=== PATIENT | male | born 1960 | race Hispanic/Latino ===

== ENCOUNTER 2016-07-03 15:43 | Inpatient (IN) | payer BC ==
[2016-07-03 15:49] VITALS: BMI 37.9
[2016-07-03 16:48] LABS: ADD MANUAL DIFF? NO
[2016-07-03 16:53] LABS: BASO # 0.02 K/mm3 (0.0-2.0); BASO % 0.3 % (0.0-3.0); EOS # 0.3 (0.0-0.7); EOS % 3.4 % (1.5-5.0); GRAN # 5.91 (1.4-6.5); GRAN % 74.8 % (50.0-68.0); HEMATOCRIT 34.2 % (42.0-52.0); LYMPH # 1.2 (1.2-3.4); LYMPH % 15.5 % (22.0-35.0); MEAN CELL VOLUME 78.8 fL (80.0-105.0); MEAN CORPUSCULAR HEMOGLOBIN 25.3 pg (25.0-35.0); MEAN CORPUSCULAR HGB CONC 32.2 g/dl (31.0-37.0); MEAN PLATELET VOLUME 10.8 fl (7.0-11.0); MONO # 0.5 (0.1-0.6); PLATELET COUNT 380 10^3/uL (120.0-450.0); RED CELL DISTRIBUTION WIDTH 16.2 % (11.5-14.5); WHITE BLOOD COUNT 7.9 10^3/ul (4.5-11.0)
--- NOTE | 2016-07-03 16:59 | ED PDOC ---
Arrival/HPI - General Chief Complaint: Medical Clearance Time Seen by Provider: 07/03/16 15:55 Historian: Patient - History of Present Illness Narrative History of Present Illness (Text): 07/03/16 17:10 56yr old male presents today sent down from the wound center for admission for osteomyelitis of right foot. pt states he has had chronic worsening wound to right foot. pt states he is currently on augmentin at home. pt states he is going to have procedure on sunday. pt denies cp or sob. no fever/chills. no abdominal pain. no other complaints. Time/Duration: Other (chronic) Symptom Onset: Gradual Symptom Course: Worsening Quality: Aching Severity Level: 2 Past Medical History - Provider Review Nursing Documentation Reviewed: Yes - Travel History Have you recently traveled outside [place] w/in the past 3 mons?: No - Tetanus Immunization Tetanus Immunization: Unknown - Cardiac Hx Cardiac Disorders: Yes Hx Hypertension: Yes - Pulmonary Hx Respiratory Disorders: No - Neurological Hx Neurological Disorder: No - HEENT Hx HEENT Disorder: (WEARS RX GLASSES) - Renal Hx Renal Disorder: No - Endocrine/Metabolic Hx Endocrine Disorders: No - Hematological/Oncological Hx Blood Disorders: No Other/Comment: lymphedema to right leg - Integumentary Hx Dermatological Disorder: Yes (STASIS ULCER TO RIGHT BALL OF FOOT) - Musculoskeletal/Rheumatological Hx Musculoskeletal Disorders: No - Gastrointestinal Hx Gastrointestinal Disorders: No - Genitourinary/Gynecological Hx Genitourinary Disorders: No - Psychiatric Hx Psychophysiologic Disorder: Yes (ETOH) Hx Substance Use: No - Past Surgical History Past Surgical History: No Previous - Surgical History Hx Coronary Stent: Yes - Suicidal Assessment Feels Threatened In Home Enviroment: No Family/Social History - Physician Review Nursing Documentation Reviewed: Yes Family/Social History: Unknown Family HX Smoking Status: Former Smoker Hx Alcohol Use: No Hx Substance Use: No Hx Substance Use Treatment: No Allergies/Home Meds Allergies/Adverse Reactions: Allergies No Known Allergies Allergy (Verified 02/08/15 15:13) Home Medications: Home Meds Medication Instructions Recorded Confirmed Amoxicillin/Clavulanate [Augmentin 1 tab PO BID 07/03/16 07/03/16 875 MG-125 MG] Aspirin [Ecotrin] 81 mg PO DAILY 07/03/16 07/03/16 Carvedilol [Coreg] 6.25 mg PO BID 07/03/16 07/03/16 Furosemide [Lasix] 40 mg PO DAILY 07/03/16 07/03/16 Gabapentin [Neurontin] 300 mg PO TID 07/03/16 07/03/16 Potassium Chloride [Klor-Con] 20 meq PO BID 07/03/16 07/03/16 Prasugrel [Effient] 10 mg PO DAILY 07/03/16 07/03/16 Rosuvastatin Calcium 20 mg PO HS 07/03/16 07/03/16 Tramadol HCl [Ultram] 50 mg PO Q6H PRN 07/03/16 07/03/16 Valsartan [Diovan] 160 mg PO DAILY 07/03/16 07/03/16 metOLazone [Zaroxolyn] 5 mg PO DAILY 07/03/16 07/03/16 oxyCODONE/Acetaminophen [Percocet 1 tab PO DAILY 07/03/16 07/03/16 5/325 mg Tab] Review of Systems - Review of Systems Constitutional: absent: Fatigue, Fevers Respiratory: absent: SOB Cardiovascular: absent: Syncope Gastrointestinal: absent: Abdominal Pain, Nausea, Vomiting Musculoskeletal: Arthralgias Skin: Skin Lesions, Cellulitis Neurological: absent: Headache Psychiatric: absent: Anxiety Physical Exam Vital Signs Reviewed: Yes Vital Signs Temp Pulse Resp BP Pulse Ox 07/03/16 15:49 98.9 F 79 16 125/76 98 Temperature: Afebrile Blood Pressure: Normal Pulse: Regular Respiratory Rate: Normal Appearance: Positive for: Well-Appearing, Non-Toxic, Comfortable Pain Distress: None Mental Status: Positive for: Alert and Oriented X 3 - Systems Exam Head: Present: Atraumatic Mouth: Present: Moist Mucous Membranes Neck: Present: Normal Range of Motion Respiratory/Chest: Present: Clear to Auscultation Cardiovascular: Present: Regular Rate and Rhythm Lower Extremity: Present: Tenderness (right foot; there is a large ulceration along the plantar aspect of the foot; slight bleeding noted; + erythema along foot into ankle. + edema to foot/ankle and calf. ), Swelling, Erythema, Neurovascularly Intact, Capillary Refill < 2 s. No: Deformity Neurological: Present: GCS=15, Speech Normal Skin: Present: Warm Psychiatric: Present: Alert, Oriented x 3 Medical Decision Making ED Course and Treatment: 07/03/16 17:14 56yr old male presents for admission for osteomyelitis to right foot. cbc: wnl cmp bun; 25 cr;1.2 type/screen blood cultures pending pt ptt ekg; normal sinus rhythm at 69 bpm normal axis normal intervals no ST elevation ancef started IV pt with MRI shows osteomyelitis of foot; pt with rx from dr. jha for admit to dr. crawford with ID consult dr. SAMUELS, start ancef 1g IV q8 case discussed with dr. crawford; accepts admission. impression; osteomyelitis, foot admit to med/surg - Lab Interpretations Lab Results: 07/03/16 16:28 07/03/16 16:28 Lab Results 07/03/16 16:28: WBC 7.9, RBC 4.34, Hgb 11.0 L, Hct 34.2 L, MCV 78.8 L, MCH 25.3 , MCHC 32.2, RDW 16.2 H, Plt Count 380, MPV 10.8, Gran % 74.8 H, Lymph % (Auto) 15.5 L, [place] % (Auto) 6.0, Eos % (Auto) 3.4, Baso % (Auto) 0.3, Gran # 5.91, Lymph # 1.2, [place] # 0.5, Eos # 0.3, Baso # 0.02, PT 12.1 H, INR 1.12 H, APTT 28.5, Sodium 138, Potassium 4.1, Chloride 100, Carbon Dioxide 26, Anion Gap 16, BUN 25 H, Creatinine 1.2, Est GFR ( Amer) > 60, Est GFR (Non-Af Amer) > 60, Random Glucose 77, Calcium 9.7, Total Bilirubin 0.7, AST 47, ALT 35, Alkaline Phosphatase 79, Total Protein 8.1, Albumin 3.9, Globulin 4.2, Albumin/ Globulin Ratio 0.9 L - RAD Interpretation Radiology Orders: 07/03/16 16:04 CHEST PORTABLE [RAD] Stat - Medication Orders Current Medication Orders: Cefazolin Sodium (Ancef 1gm In Ns) 100 mls @ 100 mls/hr IVPB STAT STA PRN Reason: Protocol Stop: 07/03/16 18:06 Last Admin: 07/03/16 17:28 Dose: 100 MLS/HR eMAR Start Stop Document 07/03/16 17:28 SS (Rec: 07/03/16 17:29 [facility]-[id number]) Intravenous Solution Start Date 07/03/16 Start Time 17:28 End Date 07/03/16 End time 18:28 Total Infusion Time 60 Disposition/Present on Arrival - Present on Arrival Any Indicators Present on Arrival: No History of DVT/PE: No History of Uncontrolled Diabetes: No Urinary Catheter: No History of Decub. Ulcer: No History Surgical Site Infection Following: None - Disposition Have Diagnosis and Disposition been Completed?: Yes Diagnosis: Osteomyelitis Disposition: HOSPITALIZED Disposition Time: 16:59 Patient Plan: Admission Patient Problems: Current Active Problems Problem Status Diagnosed Osteomyelitis Acute Condition: FAIR Referrals: Tesfaye Salazar MD [Primary Care Provider] - Follow up with primary
[2016-07-03 17:05] LABS: INR 1.12 (0.93-1.08); PARTIAL THROMBOPLASTIN TIME 28.5 Seconds (23.7-30.8)
[2016-07-03 17:06] LABS: ALB/GLOB RATIO 0.9 (1.1-1.8); ALKALINE PHOSPHATASE 79 U/L (38-133); ALT/SGPT 35 U/L (7-56); AST/SGOT 47 U/L (15-59); BILIRUBIN,TOTAL 0.7 mg/dL (0.2-1.3); BLOOD UREA NITROGEN 25 mg/dL (7-21); CALCIUM 9.7 mg/dL (8.4-10.5); CARBON DIOXIDE 26 mmol/L (21-33); CHLORIDE 100 mmol/L (98-107); GFR AFRICAN-AMERICAN > 60; GLUCOSE,RANDOM 77 mg/dL (70-110); POTASSIUM 4.1 mmol/L (3.6-5.0); SODIUM 138 mmol/L (132-148); TOTAL PROTEIN 8.1 g/dL (5.8-8.3)
[2016-07-03 22:09] VITALS: RESP 20
--- NOTE | 2016-07-04 08:09 | RAD ---
HISTORY: foot infection COMPARISON: 02/08/2015 FINDINGS: LUNGS: No active pulmonary disease. PLEURA: No significant pleural effusion identified, no pneumothorax apparent. CARDIOVASCULAR: Normal. OSSEOUS STRUCTURES: No significant abnormalities. VISUALIZED UPPER ABDOMEN: Normal. OTHER FINDINGS: None. IMPRESSION: No active disease.
--- NOTE | 2016-07-04 11:22 | CARD ---
APPROVED REPORT EKG Measurement Heart [id number] AR [id number] [id number]-2 [id number] <Conclusion> Normal sinus rhythm Low voltage QRS Inferior infarct, age undetermined Abnormal ECG
--- NOTE | 2016-07-04 12:41 | CP.PCM.PN ---
<Emma Montano - Last Filed: 07/04/16 12:37> Subjective - Date & Time of Evaluation Date of Evaluation: 07/04/16 Time of Evaluation: 12:37 - Subjective Subjective: 56 y/o male with pmhx of coronary disease, SD,dyslipidemia seen at bedside with attending Dr. Barton for right foot infection. Patient was sent from the wound care center by Dr. Morrell for right foot plantar ulceration that is infected with osteomyelitis of the 3rd ray. Patient denies any acute events overnight. His dressing remains c./d/i. Patient denies n/f/v/d/c/sob. Objective - Vital Signs/Intake and Output Vital Signs (last 24 hours): Temp Pulse Resp BP Pulse Ox 98.2 F 70 20 133/78 96 07/04/16 08:00 07/04/16 08:00 07/04/16 08:00 07/03/16 22:49 07/04/16 08:00 Intake and Output: 07/04/16 07/04/16 06:59 18:59 Intake Total 420 Balance 420 - Medications Medications: Current Medications Aspirin (Ecotrin) 81 mg PO DAILY [facility] Last Admin: 07/04/16 09:49 Dose: 81 mg Atorvastatin Calcium (Lipitor) 80 mg PO HS [facility] Last Admin: 07/03/16 22:48 Dose: 80 mg Carvedilol (Coreg) 6.25 mg PO BID [facility] Last Admin: 07/04/16 09:49 Dose: 6.25 mg Gabapentin (Neurontin) 300 mg PO TID [facility] PRN Reason: Protocol Last Admin: 07/04/16 09:49 Dose: 300 mg Cefazolin Sodium (Ancef 1gm In Ns) 1 gm in 100 mls @ 100 mls/hr IVPB Q8 [facility] PRN Reason: Protocol Losartan Potassium (Cozaar) 100 mg PO DAILY [facility] Last Admin: 07/04/16 11:16 Dose: 100 mg Prasugrel (Effient) 10 mg PO DAILY [facility] Last Admin: 07/04/16 10:04 Dose: Not Given Tramadol HCl (Ultram) 50 mg PO Q6H PRN PRN Reason: Pain, moderate (4-7) - Labs Labs: PT 12.1 Seconds (9.9-11.8) H 07/03/16 16:28 INR 1.12 (0.93-1.08) H 07/03/16 16:28 APTT 28.5 Seconds (23.7-30.8) 07/03/16 16:28 - Constitutional Appears: Well, Non-toxic, No Acute Distress - Extremities Exam Additional comments: Vasc: nonpalpable DP/PT pulses, tg wnl, CFT < 3 sec to all digits neuro: grossly diminished derm: open ulceration of the right plantar midfoot sub met 3 measuring 3cm x 2cm x 0.5cm with mixed fibrogranular base, mild serous drainage, no purulence, no ascending cellulitis, probe to bone +, no undermining ortho:no pain to palpation of plantar midfoot - Neurological Exam Neurological Exam: Alert, Awake, Oriented x3 - Psychiatric Exam Psychiatric exam: Normal Affect, Normal Mood Assessment and Plan - Assessment and Plan (Free Text) Assessment: 56 y/o male seen at bedside for right foot ulceration and osteomyelitis Plan: patient evaluated and chart reviewed seen at bedside with attending Dr. Barton labs and vitals reviewed; afebrile, WBC 7.9 continue IV abx as per ID applied DSD to right foot effient held for pre-op surgery patient scheduled for surgery for right foot partial 3rd ray resection once optimized podiatry will continue to follow while patient remains in house <Jamie Barton - Last Filed: 07/04/16 15:15> Objective - Vital Signs/Intake and Output Vital Signs (last 24 hours): Temp Pulse Resp BP Pulse Ox 98.2 F 70 20 133/78 96 07/04/16 08:00 07/04/16 08:00 07/04/16 08:00 07/03/16 22:49 07/04/16 08:00 Intake and Output: 07/04/16 07/04/16 06:59 18:59 Intake Total 420 360 Balance 420 360 - Medications Medications: Current Medications Aspirin (Ecotrin) 81 mg PO DAILY [facility] Last Admin: 07/04/16 09:49 Dose: 81 mg Atorvastatin Calcium (Lipitor) 80 mg PO HS [facility] Last Admin: 07/03/16 22:48 Dose: 80 mg Carvedilol (Coreg) 6.25 mg PO BID [facility] Last Admin: 07/04/16 09:49 Dose: 6.25 mg Gabapentin (Neurontin) 300 mg PO TID [facility] PRN Reason: Protocol Last Admin: 07/04/16 13:39 Dose: 300 mg Cefazolin Sodium (Ancef 1gm In Ns) 1 gm in 100 mls @ 100 mls/hr IVPB Q8 [facility] PRN Reason: Protocol Last Admin: 07/04/16 13:39 Dose: 100 mls/hr Losartan Potassium (Cozaar) 100 mg PO DAILY [facility] Last Admin: 07/04/16 11:16 Dose: 100 mg Prasugrel (Effient) 10 mg PO DAILY [facility] Last Admin: 07/04/16 10:04 Dose: Not Given Tramadol HCl (Ultram) 50 mg PO Q6H PRN PRN Reason: Pain, moderate (4-7) - Labs Labs: PT 12.1 Seconds (9.9-11.8) H 07/03/16 16:28 INR 1.12 (0.93-1.08) H 07/03/16 16:28 APTT 28.5 Seconds (23.7-30.8) 07/03/16 16:28 Attending/Attestation - Attestation I have personally seen and examined this patient.: Yes I have fully participated in the care of the patient.: Yes I have reviewed all pertinent clinical information, including history, physical exam and plan: Yes
[2016-07-04] MEDS: ceFAZolin 1 gm in NS 1 GM/100 ML BAG IVPB SCH ×2 (13:39→22:56)
--- NOTE | 2016-07-04 19:23 | CP.PCM.CON ---
History of Present Illness - History of Present Illness History of Present Illness: Infectious Disease Consultation: July 04, 2016 56 yo male with multiple hospitalizations at numerous facilities for his lower extremities. Patient with swelling and drainage from ulceration at the base of the third toe on the right foot. The patient denies fevers or chills. MRI was done recently showing possible abscess formation at the base of the third toe in the right foot and strong suspicion for osteomyelitis. The patient has severe swelling of the right foot. The patient was to go for PICC line placement and start on 6 week course of Ancef IV q8hrs for osteomyelitis and the possible abscess formation. PMHx: Hypertension, Coronary Artery disease, Peripheral Vascular Disease, Obesity, [place] history, Bilateral lower extremity neuropathy, history of osteomyelitis. PSHx: Bone biopsy Allergies: NKDA Social Hx: Ex-smoker, Ex-EtOH user. On disability now. Medications: Active Medications Aspirin (Ecotrin) 81 mg PO DAILY [facility] Last Admin: 07/04/16 09:49 Dose: 81 mg Atorvastatin Calcium (Lipitor) 80 mg PO HS [facility] Last Admin: 07/03/16 22:48 Dose: 80 mg Carvedilol (Coreg) 6.25 mg PO BID [facility] Last Admin: 07/04/16 17:50 Dose: Not Given Gabapentin (Neurontin) 300 mg PO TID [facility] PRN Reason: Protocol Last Admin: 07/04/16 17:50 Dose: 300 mg Cefazolin Sodium (Ancef 1gm In Ns) 1 gm in 100 mls @ 100 mls/hr IVPB Q8 [facility] PRN Reason: Protocol Last Admin: 07/04/16 13:39 Dose: 100 mls/hr Losartan Potassium (Cozaar) 100 mg PO DAILY [facility] Last Admin: 07/04/16 11:16 Dose: 100 mg Prasugrel (Effient) 10 mg PO DAILY [facility] Last Admin: 07/04/16 10:04 Dose: Not Given Tramadol HCl (Ultram) 50 mg PO Q6H PRN PRN Reason: Pain, moderate (4-7) Family Hx: None ROS: No fevers, chills, nausea, vomiting, diarrhea, headaches, dizziness, chest pain , abdominal pain, melena, hematuria, hematemesis, hematochezia, depression, anxiety Past Patient History - Tetanus Immunizations Tetanus Immunization: Unknown - Past Social History Smoking Status: Former Smoker - CARDIAC Hx Cardiac Disorders: Yes Hx Hypertension: Yes Hx Peripheral Vascular Disease: Yes Other/Comment: [place] - DEC 2013 - PULMONARY Hx Respiratory Disorders: No - NEUROLOGICAL Hx Neurological Disorder: Yes (Neuropathy both lower legs) - HEENT Hx HEENT Problems: (WEARS RX GLASSES) - RENAL Hx Chronic Kidney Disease: No - ENDOCRINE/METABOLIC Hx Endocrine Disorders: No - HEMATOLOGICAL/ONCOLOGICAL Hx Blood Disorders: No Other/Comment: lymphedema to right leg - INTEGUMENTARY Hx Dermatological Problems: Yes (STASIS ULCER TO RIGHT BALL OF FOOT) - MUSCULOSKELETAL/RHEUMATOLOGICAL Hx Musculoskeletal Disorders: No Hx Falls: No - GASTROINTESTINAL Hx Gastrointestinal Disorders: No - GENITOURINARY/GYNECOLOGICAL Hx Genitourinary Disorders: No - PSYCHIATRIC Hx Psychophysiologic Disorder: Yes (ETOH occ. - no alcohol since 2016) Hx Substance Use: No - SURGICAL HISTORY Hx Surgeries: Yes (Right ft osteomyelitis) Hx Cardiac Catheterization: Yes Hx Coronary Stent: Yes (stents x3 10'14) Meds Allergies/Adverse Reactions: Allergies Allergy/AdvReac Type Severity Reaction Status Date / Time No Known Allergies Allergy Verified 02/08/15 15:13 - Medications Medications: Current Medications Aspirin (Ecotrin) 81 mg PO DAILY [facility] Last Admin: 07/04/16 09:49 Dose: 81 mg Atorvastatin Calcium (Lipitor) 80 mg PO HS [facility] Last Admin: 07/03/16 22:48 Dose: 80 mg Carvedilol (Coreg) 6.25 mg PO BID [facility] Last Admin: 07/04/16 17:50 Dose: Not Given Gabapentin (Neurontin) 300 mg PO TID [facility] PRN Reason: Protocol Last Admin: 07/04/16 17:50 Dose: 300 mg Cefazolin Sodium (Ancef 1gm In Ns) 1 gm in 100 mls @ 100 mls/hr IVPB Q8 [facility] PRN Reason: Protocol Last Admin: 07/04/16 13:39 Dose: 100 mls/hr Losartan Potassium (Cozaar) 100 mg PO DAILY [facility] Last Admin: 07/04/16 11:16 Dose: 100 mg Prasugrel (Effient) 10 mg PO DAILY [facility] Last Admin: 07/04/16 10:04 Dose: Not Given Tramadol HCl (Ultram) 50 mg PO Q6H PRN PRN Reason: Pain, moderate (4-7) Physical Exam - Constitutional Appears: Non-toxic, No Acute Distress, Chronically Ill - Head Exam Head Exam: ATRAUMATIC, NORMOCEPHALIC - Eye Exam Eye Exam: EOMI, PERRL Pupil Exam: NORMAL ACCOMODATION, PERRL - ENT Exam ENT Exam: Mucous Membranes Moist, Normal External Ear Exam, TM's Normal Bilaterally - Neck Exam Neck exam: Positive for: Full Rom, Normal Inspection - Cardiovascular Exam Cardiovascular Exam: REGULAR RHYTHM, RRR, +S1, +S2 - GI/Abdominal Exam GI & Abdominal Exam: Normal Bowel Sounds, Soft. absent: Distended, Tenderness - Extremities Exam Additional comments: Right leg with +2-3 edema of the entire right leg. 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 No odor. Probes to bone. Sloughing of the skin on both legs. - Neurological Exam Neurological exam: Alert, CN II-XII Intact, Oriented x3 Additional comments: decreased sensation of both lower extremities. Weak distal pulses. chronic venous stasis changes to both legs with right much worse than left. - Psychiatric Exam Psychiatric exam: Normal Affect, Normal Mood - Skin Skin Exam: Intact, Normal Color Results - Vital Signs Recent Vital Signs: Last Vital Signs Temp 98.3 F 07/04/16 16:00 Pulse 57 L 07/04/16 16:00 Resp 20 07/04/16 16:00 BP 114/82 07/04/16 16:00 Pulse Ox 97 07/04/16 16:00 - Labs Result Diagrams: 07/03/16 16:28 07/03/16 16:28 Labs: Laboratory Results - last 24 hr 07/04/16 07:10 Blood Type Confirm B NEGATIVE Assessment & Plan - Assessment and Plan (Free Text) Assessment: 56 yo male with extensive past medical history as listed above with signs of abscess formation and osteomyelitis on MRI taken at [facility] a few days ago. The patient with HTN, CAD, and PVD. He was on Amoxicillin for therapy. At this point in time, the patient requires PICC line placement and IV antibiotic infusion. Wound cultures grew a sensitive E. coli. However, the patient has borderline renal function. As this point in time, would start Ancef 1gm q8hrs for a minimum of 6 weeks of therapy. Monitor weekly ESR and CRP. Dr. Morrell may also consider whether hyperbarics may provide any benefit. Since the time I saw the patient in the wound care center, the patient required admission for increasing pain of the right foot. He is scheduled for the OR on Sunday due to his anticoagulation medications and time required to clear them from his body. Repeat cultures taken. Remains on Ancef IV for antibiotic treatment. Thank you for allowing me to participate in the care of the patient, we will follow with you.
[2016-07-05] MEDS: ceFAZolin 1 gm in NS 1 GM/100 ML BAG IVPB SCH ×3 (06:07→21:46)
--- NOTE | 2016-07-05 08:56 | HP ---
CHIEF COMPLAINT AND HISTORY OF PRESENT ILLNESS: This is a 56-year-old male who is coming in to the [facility] presenting from the wound care center for osteomyelitis of the right foot. The patient was s een by Dr. Morrell, and she had probed his foot and had gone to the bone, so the patient was sent in to the Emergency Room for further management. The patient has swelling and drainage of the ulceration at the base of the third toe of the right pascual t. He denied any fevers or chills. The patient had an MRI that was done that showed possible absces s formation, a bone infarct that is possibly seen. He was admitted for further evaluation. The mariano ent was to get IV PICC line placed and start a course of IV Ancef for the osteomyelitis. REVIEW OF SYSTEMS: All other review of symptoms are within normal limits except as mentioned. ALLERGIES: No known drug allergies. HOME MEDICATIONS: Aspirin, Coreg, Lasix, Neurontin, Effient, Ultram, Diovan, Zaroxolyn, oxycodone. PAST MEDICAL HISTORY: 1. Sinus tract of the left aspect of the first metatarsal. 2. Ulceration of the plantar aspect of the first metatarsal of the right foot. 3. Right foot osteomyelitis. 4. Coronary artery disease. 5. Hypertension. 6. Peripheral arterial disease. 7. Dyslipidemia. 8. Neuropathy. SOCIAL HISTORY: He does not smoke. He is not . He has no children. He works at a warehouse . He does drink, but he says he stopped drinking in 03/2016. He was vague on how much he was drinkin g. FAMILY HISTORY: Noncontributory. PHYSICAL EXAMINATION: VITAL SIGNS: Temperature is 98.3, pulse of ____. Blood pressure is 114/____, respirations 20, O2 sa turation 97%. GENERAL: The patient is lying in bed, flat, and in no apparent distress. HEAD AND NECK EXAM: Atraumatic, normocephalic. Conjunctivae are pink. Throat clear and mouth with moist mucosa. Oropharynx benign. EYES: Extraocular movements are intact. PERRLA. NECK: Supple. No JVD, thyromegaly, or adenopathy. No bruits. HEART: S1 and S2 regular rate and rhythm. No murmurs, rubs, or gallops. LUNGS: Clear to auscultation bilaterally. No wheezing rales or rhonchi appreciated. No retraction s on exam. ABDOMEN: Soft, nontender, nondistended. Bowel sounds are positive in all quadrants. No rebound. No hepatosplenomegaly. EXTREMITIES: No cyanosis, clubbing, or edema. The right foot is covered with a dressing. It is r eported the patient has a stage IV ulceration of the right toe. NEURO: No facial asymmetry, tongue is midline, no uvula deviation. Power is 5/5 in upper extremity and 5/5 in lower extremity. Sensation is normal in upper extremity and lower extremity. PSYCH: Awake, alert, oriented x3. No anxiety or depression symptoms. Good insight. Normal affec t. : No CVA tenderness VASCULAR: 2+ pulses in carotid and pedal pulses. SKIN: No erythema or abnormal nodules noted. SPINE: Normal curvature. LYMPHADENOPATHY: No anterior cervical or posterior cervical adenopathy. No inguinal adenopathy. ASSESSMENT: 1. Right foot ulcer with abscess. 2. Dyslipidemia. 3. Coronary artery disease with stenting. 4. Peripheral arterial disease. 5. Hypertension. 6. Obesity with a body mass index of 38. PLAN: The patient is lying comfortable. He is going to be followed by Dr. Morrell and Mick, as we ll as DrAman ____. He had a chest x-ray done that showed no active disease. He had an EKG that showed low voltage QRS and normal sinus rhythm at 69. He is going to be admitted to the hospital. He is going to be scheduled for the OR most likely accor ding to the notes I reviewed of Dr. Barton. He is on losartan for his hypertension. His aspirin has been placed on hold. He is on Neurontin for his neuropathy. The patient is on tramadol for pain. He is on a heart-healthy diet. I reviewed his labs. His hemoglobin is 11. His white count is 7.9. Hank Barroso MD cc: [id number] TT: 07/05/2016 08:56:09 lucia
--- NOTE | 2016-07-05 09:52 | PN ---
DATE: 07/05/2016 SUBJECTIVE: The patient has no complaints of any chest pain, no shortness of breath, no headaches. PHYSICAL EXAMINATION: VITAL SIGNS: Temperature is 98.3, pulse of 57, blood pressure is 114/82, respirations 20. GENERAL: The patient comfortable, in no acute distress. HEENT: Anicteric sclerae. Moist mucosa. NECK: No JVD or adenopathy. CARDIAC: S1/S2. No murmurs. No rubs. Regular. RESPIRATORY: Clear to auscultation bilaterally. No wheezes, rales, or rhonchi. Good air entry. ABDOMEN: Bowel sounds are positive, soft, nontender, and nondistended. EXTREMITIES: No edema. Has 1+ pulses. Right foot has dressing on. LABS: White count is 7.9, hemoglobin 11.0. Creatinine is 1.2. ASSESSMENT: 1. Right foot ulcer. 2. Coronary artery disease. 3. Hypertension. 4. Peripheral arterial disease. 5. Obesity with a body mass index of 38. PLAN: The patient is currently comfortable. He is on carvedilol for his coronary artery disease. H e is going to continue with aspirin. His Effient is on hold. He is going to be going to the OR with podiatry. He is on Neurontin for his neuropathy. The patient is on a heart healthy diet. Hank Barroso MD cc: [id number] TT: 07/05/2016 09:51:19 Confirmation # [id number] Dictation # [id number]
--- NOTE | 2016-07-05 10:29 | CP.PCM.PN ---
<Emma Montano - Last Filed: 07/05/16 10:26> Subjective - Date & Time of Evaluation Date of Evaluation: 07/05/16 Time of Evaluation: 10:26 - Subjective Subjective: 56 y/o male with pmhx of coronary disease, [place],dyslipidemia seen at bedside with attending Dr. Morrell for right foot ulceration. Patient denies any acute events overnight. His dressing remains c./d/i. Patient denies n/f/v/d/c/sob. Objective - Vital Signs/Intake and Output Vital Signs (last 24 hours): Temp Pulse Resp BP Pulse Ox 98.3 F 64 20 155/92 H 98 07/05/16 08:52 07/05/16 08:52 07/05/16 08:52 07/05/16 08:52 07/05/16 08:52 Intake and Output: 07/05/16 07/05/16 06:59 18:59 Intake Total 800 Balance 800 - Medications Medications: Current Medications Aspirin (Ecotrin) 81 mg PO DAILY [facility] Last Admin: 07/04/16 09:49 Dose: 81 mg Atorvastatin Calcium (Lipitor) 80 mg PO HS [facility] Last Admin: 07/04/16 22:56 Dose: 80 mg Carvedilol (Coreg) 6.25 mg PO BID [facility] Last Admin: 07/04/16 17:50 Dose: Not Given Gabapentin (Neurontin) 300 mg PO TID [facility] PRN Reason: Protocol Last Admin: 07/04/16 17:50 Dose: 300 mg Cefazolin Sodium (Ancef 1gm In Ns) 1 gm in 100 mls @ 100 mls/hr IVPB Q8 [facility] PRN Reason: Protocol Last Admin: 07/05/16 06:07 Dose: 100 mls/hr Losartan Potassium (Cozaar) 100 mg PO DAILY [facility] Last Admin: 07/04/16 11:16 Dose: 100 mg Prasugrel (Effient) 10 mg PO DAILY [facility] Last Admin: 07/04/16 10:04 Dose: Not Given Tramadol HCl (Ultram) 50 mg PO Q6H PRN PRN Reason: Pain, moderate (4-7) - Labs Labs: PT 12.1 Seconds (9.9-11.8) H 07/03/16 16:28 INR 1.12 (0.93-1.08) H 07/03/16 16:28 APTT 28.5 Seconds (23.7-30.8) 07/03/16 16:28 - Constitutional Appears: Well, Non-toxic, No Acute Distress - Extremities Exam Additional comments: Vasc: nonpalpable DP/PT pulses, tg wnl, CFT < 3 sec to all digits neuro: grossly diminished derm: open ulceration of the right plantar midfoot sub met 3 measuring 3cm x 2cm x 0.5cm with mixed fibrogranular base, macerated border, mild serous drainage, no purulence, no ascending cellulitis,no probe to bone, no undermining ortho:no pain to palpation of plantar midfoot - Neurological Exam Neurological Exam: Alert, Awake, Oriented x3 - Psychiatric Exam Psychiatric exam: Normal Affect, Normal Mood Assessment and Plan - Assessment and Plan (Free Text) Assessment: 56 yo male seen at bedside for right foot dominguez grade 2 ulceration Plan: patient evaluated and chart reviewed seen at bedside with attending Dr. Morrell labs and vitals reviewed; afebrile continue IV abx applied hydrogel, DSD, JERED to right foot Rx right foot x rays podiatry will continue to monitor while patient remains in house <Shameka Morrell - Last Filed: 07/16/16 14:11> Objective - Vital Signs/Intake and Output Vital Signs (last 24 hours): Temp Pulse Resp BP Pulse Ox 99 F 72 20 113/67 97 07/06/16 16:00 07/06/16 18:26 07/06/16 16:00 07/06/16 18:26 07/06/16 16:00 - Labs Labs: PT 12.1 Seconds (9.9-11.8) H 07/03/16 16:28 INR 1.12 (0.93-1.08) H 07/03/16 16:28 APTT 28.5 Seconds (23.7-30.8) 07/03/16 16:28 Attending/Attestation - Attestation I have personally seen and examined this patient.: Yes I have fully participated in the care of the patient.: Yes I have reviewed all pertinent clinical information, including history, physical exam and plan: Yes
--- NOTE | 2016-07-05 12:07 | RAD ---
PROCEDURE: Right Foot Radiographs. HISTORY: osteomyelitis COMPARISON: None. FINDINGS: BONES: There is bony destruction of the head of the 3rd metatarsal as well as a fracture of the neck JOINTS: Degenerative changes are seen in the 1st PIP and MTP joints SOFT TISSUES: Normal. OTHER FINDINGS: None. IMPRESSION: There is bony destruction of the head of the 3rd metatarsal as well as a fracture of the neck
[2016-07-05] MEDS ORDERED: Lidocaine 2% Inj (20ml) ONE (12:53)
--- NOTE | 2016-07-05 15:57 | VASCULAR ---
PROCEDURE: Ultrasound and fluoroscopically placed left upper extremity PICC line. HISTORY: Right foot osteomyelitis. Long-term IV antibiotics. Needs PICC line. PHYSICIAN(S): J Luis Salazar MD. TECHNIQUE: The relative risks and indications of the procedure were explained to the patient and consent obtained. The patient was placed supine on the arteriogram table and the left arm prepped and draped in the usual sterile fashion. A tourniquet was applied to the left axilla. 1% Xylocaine was used to anesthetize the skin and soft tissues at the puncture site above the elbow. The left basilic vein was punctured under direct ultrasound guidance with a micropuncture set. A 0.018 guidewire was advanced centrally and used to measure the length to the SVC/RA junction. A 5 Vincentian single-lumen PICC line 55 cm long was advanced to the SVC/RA junction. The catheter was flushed and secured. The patient tolerated the procedure well. IMPRESSION: 1. Ultrasound and fluoroscopically placed left upper extremity PICC line. A 5 Vincentian single-lumen PICC line 55 cm long was advanced to the SVC/RA junction.
--- NOTE | 2016-07-05 18:01 | CP.PCM.PN ---
Subjective - Date & Time of Evaluation Date of Evaluation: 07/05/16 Time of Evaluation: 17:00 - Subjective Subjective: Infectious Disease Follow Up: July 05, 2016 56 yo male with multiple hospitalizations at numerous facilities for his lower extremities. Patient with swelling and drainage from ulceration at the base of the third toe on the right foot. The patient denies fevers or chills. MRI was done recently showing possible abscess formation at the base of the third toe in the right foot and strong suspicion for osteomyelitis. The patient has severe swelling of the right foot. The patient was to go for PICC line placement and start on 6 week course of Ancef IV q8hrs for osteomyelitis and the possible abscess formation. PICC line placed by Dr. Salazar. Off anticoagulation for potential surgery on Sunday. Objective - Vital Signs/Intake and Output Vital Signs (last 24 hours): Temp Pulse Resp BP Pulse Ox 98.3 F 64 20 147/84 97 07/05/16 16:00 07/05/16 16:00 07/05/16 16:00 07/05/16 16:00 07/05/16 16:00 Intake and Output: 07/05/16 07/05/16 06:59 18:59 Intake Total 800 600 Balance 800 600 - Medications Medications: Current Medications Aspirin (Ecotrin) 81 mg PO DAILY [facility] Last Admin: 07/05/16 10:54 Dose: 81 mg Atorvastatin Calcium (Lipitor) 80 mg PO HS [facility] Last Admin: 07/04/16 22:56 Dose: 80 mg Carvedilol (Coreg) 6.25 mg PO BID [facility] Last Admin: 07/05/16 10:54 Dose: 6.25 mg Gabapentin (Neurontin) 300 mg PO TID [facility] PRN Reason: Protocol Last Admin: 07/05/16 14:33 Dose: 300 mg Cefazolin Sodium (Ancef 1gm In Ns) 1 gm in 100 mls @ 100 mls/hr IVPB Q8 [facility] PRN Reason: Protocol Last Admin: 07/05/16 14:29 Dose: 100 mls/hr Losartan Potassium (Cozaar) 100 mg PO DAILY [facility] Last Admin: 07/05/16 10:54 Dose: 100 mg Prasugrel (Effient) 10 mg PO DAILY [facility] Last Admin: 07/04/16 10:04 Dose: Not Given Tramadol HCl (Ultram) 50 mg PO Q6H PRN PRN Reason: Pain, moderate (4-7) - Labs Labs: PT 12.1 Seconds (9.9-11.8) H 07/03/16 16:28 INR 1.12 (0.93-1.08) H 07/03/16 16:28 APTT 28.5 Seconds (23.7-30.8) 07/03/16 16:28 - Constitutional Appears: Non-toxic, No Acute Distress, Chronically Ill - Head Exam Head Exam: ATRAUMATIC, NORMOCEPHALIC - Eye Exam Eye Exam: EOMI, PERRL Pupil Exam: NORMAL ACCOMODATION, PERRL - ENT Exam ENT Exam: Mucous Membranes Moist, Normal External Ear Exam, TM's Normal Bilaterally - Neck Exam Neck Exam: Full ROM, Normal Inspection - Respiratory Exam Respiratory Exam: Clear to Ausculation Bilateral, NORMAL BREATHING PATTERN. absent: Rales, Rhonchi, Wheezes - Cardiovascular Exam Cardiovascular Exam: REGULAR RHYTHM, RRR, +S1, +S2 - GI/Abdominal Exam GI & Abdominal Exam: Soft, Normal Bowel Sounds. absent: Distended, Tenderness - Extremities Exam Additional comments: Right leg with +2-3 edema of the entire right leg. 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 No odor. Probes to bone. Sloughing of the skin on both legs. - Neurological Exam Neurological Exam: Alert, CN II-XII Intact, Oriented x3 Additional comments: decreased sensation of both lower extremities. Weak distal pulses. chronic venous stasis changes to both legs with right much worse than left. - Psychiatric Exam Psychiatric exam: Normal Affect, Normal Mood - Skin Skin Exam: Intact, Normal Color Assessment and Plan - Assessment and Plan (Free Text) Assessment: 56 yo male with extensive past medical history as listed above with signs of abscess formation and osteomyelitis [place] [facility] [place] The patient with HTN, CAD, and PVD. He was on Amoxicillin for therapy. At this point in time, the patient requires PICC line placement and IV antibiotic infusion. Wound cultures grew a sensitive E. coli. However, the patient has borderline renal function. As this point in time, would start Ancef 1gm q8hrs for a minimum of 6 weeks of therapy. Monitor weekly ESR and CRP. Dr. Morrell may also consider whether hyperbarics may provide any benefit. Since the time I saw the patient in the wound care center, the patient required admission for increasing pain of the right foot. He is scheduled for the OR on Sunday due to his anticoagulation medications and time required to clear them from his body. Repeat cultures taken. Remains on Ancef IV for antibiotic treatment. PICC line placed. On Ancef based on recent wound cultures done in wound care center showing E. coli growth. Thank you for allowing me to participate in the care of the patient, we will follow with you.
[2016-07-06] MEDS: ceFAZolin 1 gm in NS 1 GM/100 ML BAG IVPB SCH ×2 (06:04→14:09)
--- NOTE | 2016-07-06 06:31 | PN ---
DATE: 07/06/2016 SUBJECTIVE: The patient has no complaints of chest pain or shortness of breath. No headaches or diz ziness. PHYSICAL EXAMINATION: VITAL SIGNS: Temperature is 98.3, pulse 64, blood pressure 147/84, respirations 20. GENERAL: The patient comfortable, in no acute distress. HEENT: Anicteric sclerae. Moist mucosa. NECK: No JVD or adenopathy. CARDIAC: S1/S2. No murmurs. No rubs. Regular. RESPIRATORY: Clear to auscultation bilaterally. No wheezes, rales, or rhonchi. Good air entry. ABDOMEN: Bowel sounds are positive, soft, nontender, and nondistended. EXTREMITIES: No edema. Has 1+ pulses. ASSESSMENT: 1. Status post PICC line placement. 2. Right foot ulcer. 3. Coronary artery disease. 4. Hypertension. 5. Peripheral edema. 6. Obesity, with body mass index of 38. PLAN: The patient is currently comfortable. He is being followed by Dr. Morrell of podiatry. I did speak to her. His foot ulcer is starting to heal. Surgery is not planned at this point. This mariano ent is on Ancef based on wound cultures. He is being followed by infectious disease. He is on carve dilol. He is going to continue with losartan for his hypertension. He is on Lipitor for dyslipidemi a. He is on Neurontin for his neuropathy. He is on Effient. We will need to find out from ____ _ how long the patient will need to be on IV antibiotics to decide about placement. He may need to g o to subacute rehab because of chronic prolonged antibiotic therapy for probably 4 weeks given that c linically he has osteomyelitis and his probe had gone to the bone according to Dr. Morrell. Hank Barroso MD cc: [id number] TT: 07/06/2016 06:31:22 Confirmation # [id number] Dictation # [id number] sawyer
[2016-07-06 08:58] VITALS: PULSE 72
--- NOTE | 2016-07-06 09:40 | PN ---
DATE: 07/06/2016 This is a 56-year-old male with bilateral lower extremity neuropathy and a right lower extremity lymp hedema. The patient is seen at bedside. He had a PICC line put in. He has an ulceration on the elaine ntar aspect of his foot. VITAL SIGNS: Upon reviewing his labs, his vital signs today show a temperature of 98.2. His blood p ressure is 128/85. His respirations are 20, and his oxygen sat was 98. LABORATORY DATA: His labs show a white blood cell count today of 7.9. The H and H are 11 and 34.2. His ESR yesterday was 5. His chemistry shows a BUN and creatinine of 25 and 1.2. His foot x-ray was also reviewed. He had a slightly displaced fracture of his second metatarsal head , which I believe is what was picked up on the MRI, and it showed marrow edema in the metatarsal, as well as the second toe. Since there is an ulcer there, and that ulcer did probe to bone, this has to be considered as early osteomyelitis. The patient's wound is healing fast while he is here in the h ospital and off his feet. It no longer has a depth into a sinus tract. The bone is no longer probed , and there is no longer any redness or swelling of the foot. The patient's microbiology was positive for gram-negative rods, and his microbiology on 06/22 was for E. coli, and there was a light growth on his last culture. His blood cultures showed no growth in th e blood. ASSESSMENT: Neuropathy with impending Charcot foot disease. After review of the MRI, there are mult iple bones that are being affected, which have not yet fractured, and this was discussed with the facundo leach. He does have a patellar tendon-bearing brace, which he does not use. The patient will be placed into a below-knee cast. We will not be doing any surgery since the wound is closing so fast. However, he does need 4-6 weeks of IV antibiotics, as an open fracture in this a joan with bacteria contamination must be considered an osteomyelitis. This was all explained to the p atient. I think we are going to try and put him in TCU, so he can manage with the cast, as well as a ntibiotic therapy. If he needs antibiotics, his insurance does not pay for them at home, and he will be seen and followed. I did speak with case management regarding the same. Shameka Morrell DPM cc: [id number] TT: 07/06/2016 09:39:32 Confirmation # [id number] Dictation # [id number] lucia
[2016-07-06 16:24] VITALS: BP 113/67; TEMP 99; O2SAT 97
--- NOTE | 2016-07-06 19:21 | CP.PCM.PN ---
Subjective - Date & Time of Evaluation Date of Evaluation: 07/06/16 Time of Evaluation: 17:30 - Subjective Subjective: Infectious Disease Follow Up: July 06, 2016 56 yo male with multiple hospitalizations at numerous facilities for his lower extremities. Patient with swelling and drainage from ulceration at the base of the third toe on the right foot. The patient denies fevers or chills. MRI was done recently showing possible abscess formation at the base of the third toe in the right foot and strong suspicion for osteomyelitis. The patient has severe swelling of the right foot. The patient was to go for PICC line placement and start on 6 week course of Ancef IV q8hrs for osteomyelitis and the possible abscess formation. Cultures showing sensitive E. coli from right foot wound. PICC line placed by Dr. Salazar. Off anticoagulation for potential surgery on Sunday. Objective - Vital Signs/Intake and Output Vital Signs (last 24 hours): Temp Pulse Resp BP Pulse Ox 99 F 72 20 113/67 97 07/06/16 16:00 07/06/16 18:26 07/06/16 16:00 07/06/16 18:26 07/06/16 16:00 Intake and Output: 07/06/16 07/07/16 18:59 06:59 Intake Total 840 Balance 840 - Medications Medications: Current Medications Aspirin (Ecotrin) 81 mg PO DAILY [facility] Last Admin: 07/06/16 10:11 Dose: 81 mg Atorvastatin Calcium (Lipitor) 80 mg PO HS [facility] Last Admin: 07/05/16 21:46 Dose: 80 mg Carvedilol (Coreg) 6.25 mg PO BID [facility] Last Admin: 07/06/16 18:26 Dose: 6.25 mg Gabapentin (Neurontin) 300 mg PO TID [facility] PRN Reason: Protocol Last Admin: 07/06/16 18:28 Dose: 300 mg Cefazolin Sodium (Ancef 1gm In Ns) 1 gm in 100 mls @ 100 mls/hr IVPB Q8 [facility] PRN Reason: Protocol Last Admin: 07/06/16 14:09 Dose: 100 mls/hr Losartan Potassium (Cozaar) 100 mg PO DAILY [facility] Last Admin: 07/06/16 10:11 Dose: 100 mg Prasugrel (Effient) 10 mg PO DAILY [facility] Last Admin: 07/04/16 10:04 Dose: Not Given Tramadol HCl (Ultram) 50 mg PO Q6H PRN PRN Reason: Pain, moderate (4-7) - Labs Labs: PT 12.1 Seconds (9.9-11.8) H 07/03/16 16:28 INR 1.12 (0.93-1.08) H 07/03/16 16:28 APTT 28.5 Seconds (23.7-30.8) 07/03/16 16:28 - Constitutional Appears: Non-toxic, No Acute Distress, Chronically Ill - Head Exam Head Exam: ATRAUMATIC, NORMOCEPHALIC - Eye Exam Eye Exam: EOMI, PERRL Pupil Exam: NORMAL ACCOMODATION, PERRL - ENT Exam ENT Exam: Mucous Membranes Moist, Normal External Ear Exam, TM's Normal Bilaterally - Neck Exam Neck Exam: Full ROM, Normal Inspection - Respiratory Exam Respiratory Exam: Clear to Ausculation Bilateral, NORMAL BREATHING PATTERN. absent: Rales, Rhonchi, Wheezes - Cardiovascular Exam Cardiovascular Exam: REGULAR RHYTHM, RRR, +S1, +S2 - GI/Abdominal Exam GI & Abdominal Exam: Soft, Normal Bowel Sounds. absent: Distended, Tenderness - Extremities Exam Additional comments: Right leg with +2-3 edema of the entire right leg. Stage IV ulceration on base of the right 3rd toe ventral surface with drainage. No odor. Probes to bone. Sloughing of the skin on both legs. Right 3rd toe ulceration is healing. - Neurological Exam Neurological Exam: Alert, Awake, CN II-XII Intact, Oriented x3 Additional comments: decreased sensation of both lower extremities. Weak distal pulses. chronic venous stasis changes to both legs with right much worse than left. - Psychiatric Exam Psychiatric exam: Normal Affect, Normal Mood - Skin Skin Exam: Intact, Normal Color Assessment and Plan - Assessment and Plan (Free Text) Assessment: 56 yo male with extensive past medical history as listed above with signs of abscess formation and osteomyelitis on MRI taken at [facility] [place] a few days ago. The patient with HTN, CAD, and PVD. He was on Amoxicillin for therapy. At this point in time, the patient requires PICC line placement and IV antibiotic infusion. Wound cultures grew a sensitive E. coli. However, the patient has borderline renal function. As this point in time, would start Ancef 1gm q8hrs for a minimum of 6 weeks of therapy. Monitor weekly ESR and CRP. Since the time I saw the patient in the wound care center, the patient required admission for increasing pain of the right foot. He is scheduled for the OR on Sunday due to his anticoagulation medications and time required to clear them from his body. Repeat cultures taken. Remains on Ancef IV for antibiotic treatment. PICC line placed. On Ancef based on recent wound cultures done in wound care center showing E. coli growth. Dr. Morrell is reconsidering surgery as the wound on the right foot appears to be healing at a faster pace than expected. There is also an issue with home IV infusion as the insurance may not pay for such service. Thank you for allowing me to participate in the care of the patient, we will follow with you.
--- NOTE | 2016-07-30 14:19 | DS ---
This is a 56-year-old male who came into the hospital because of a foot ulcer. Please see the note t hat was dictated on 07/06/2016 for details. The patient was discharged. Hank Barroso MD cc: [id number] TT: 07/30/2016 14:18:38 en
== END 2016-07-06 20:17 | DRG 540 ==
LOC: ED 15:43 → ERH 17:52 → 5RSO 20:18
PROVIDERS: ADMIT Internal Medicine Nephrology; ATTEND Internal Medicine Nephrology
PROC: 02HV33Z Insertion of Infusion Device into Superior Vena Cava, Percutaneous Approach (ICD-10-PCS; principal; 2016-07-05)
PROC: B548ZZA Ultrasonography of Superior Vena Cava, Guidance (ICD-10-PCS; 2016-07-05)
DX: M86.8X7 Other osteomyelitis, ankle and foot (principal); L02.611 Cutaneous abscess of right foot; L97.519 Non-pressure chronic ulcer of other part of right foot with unspecified severity; G62.9 Polyneuropathy, unspecified; I10 Essential (primary) hypertension; I25.10 Atherosclerotic heart disease of native coronary artery without angina pectoris; I73.9 Peripheral vascular disease, unspecified; E78.5 Hyperlipidemia, unspecified; E66.9 Obesity, unspecified; Z68.38 Body mass index [BMI] 38.0-38.9, adult; I25.2 Old myocardial infarction; Z87.891 Personal history of nicotine dependence; Z95.5 Presence of coronary angioplasty implant and graft

== ENCOUNTER 2016-07-06 20:17 | Inpatient (IN) | payer BC ==
[2016-07-07] MEDS: ceFAZolin 1 gm in NS 1 GM/100 ML BAG IVPB SCH ×3 (06:02→22:08)
--- NOTE | 2016-07-07 07:56 | PN ---
DATE: 07/07/2016 SUBJECTIVE: The patient is coming into the transitional care unit for IV antibiotics. He has a righ t foot ulcer that is being treated by podiatry. He has no complaints of any chest pain, shortness of breath, no headaches. Please see the initial H and P that was done that I agree with. PHYSICAL EXAMINATION: VITAL SIGNS: Temperature is 98.1, pulse of 66, blood pressure 115/76, respirations 18. GENERAL: The patient comfortable, in no acute distress. HEENT: Anicteric sclerae. Moist mucosa. NECK: No JVD or adenopathy. CARDIAC: S1/S2. No murmurs. No rubs. Regular. RESPIRATORY: Clear to auscultation bilaterally. No wheezes, rales, or rhonchi. Good air entry. ABDOMEN: Bowel sounds are positive, soft, nontender, and nondistended. EXTREMITIES: No edema. Has 1+ pulses. ASSESSMENT: 1. Right foot ulcer. 2. Status post PICC line placement. 3. Coronary artery disease. 4. Hypertension. 5. Right lower extremity edema, improved. 6. Obesity, BMI of 38. PLAN: The patient is currently comfortable. He is going to be getting IV antibiotics through the [facility]. The patient has losartan for hypertension. He is on potassium. He is on continuous Lipitor for dyslipidemia. He is on gabapentin for his neuropathy. He is on a heart healthy diet. He is being followed by from infectious disease and Dr. Morrell. Hank Barroso MD cc: [id number] TT: 07/07/2016 07:55:25 Confirmation # [id number] Dictation # [id number] lucia
--- NOTE | 2016-07-07 10:52 | CP.PCM.PN ---
<Emma Montano - Last Filed: 07/07/16 10:48> Subjective - Date & Time of Evaluation Date of Evaluation: 07/07/16 Time of Evaluation: 10:48 - Subjective Subjective: 56 y/o male seen at bedside in TCU for right foot ulceration with osteomyelitis. Patient denies any acute events overnight. His total contact cast remains c./d/i. Patient denies n/f/v/d/c/sob. Objective - Vital Signs/Intake and Output Vital Signs (last 24 hours): Temp Pulse Resp BP Pulse Ox 98.1 F 66 18 115/71 97 07/07/16 09:56 07/07/16 09:56 07/07/16 09:56 07/07/16 09:56 07/07/16 09:56 - Medications Medications: Current Medications Aspirin (Ecotrin) 81 mg PO 0800 [facility] Last Admin: 07/07/16 08:20 Dose: 81 mg Atorvastatin Calcium (Lipitor) 80 mg PO DIN [facility] Carvedilol (Coreg) 6.25 mg PO BID [facility] Gabapentin (Neurontin) 300 mg PO TID [facility] PRN Reason: Protocol Cefazolin Sodium (Ancef 1gm In Ns) 1 gm in 100 mls @ 100 mls/hr IVPB Q8 [facility] PRN Reason: Protocol Last Admin: 07/07/16 06:02 Dose: 100 mls/hr Losartan Potassium (Cozaar) 100 mg PO DAILY [facility] Prasugrel (Effient) 10 mg PO DAILY [facility] Tramadol HCl (Ultram) 50 mg PO Q6H PRN PRN Reason: Pain, moderate (4-7) - Constitutional Appears: Well, Non-toxic, No Acute Distress - Extremities Exam Additional comments: total contact cast to RLE remains c.d/i bivalved cast reinforced with coban patient denies calf tenderness or pain able to wiggle toes cft < 3 sec to all digits - Neurological Exam Neurological Exam: Alert, Awake, Oriented x3 - Psychiatric Exam Psychiatric exam: Normal Affect, Normal Mood Assessment and Plan - Assessment and Plan (Free Text) Assessment: 56 yo male seen at bedside for right foot dominguez grade 2 ulceration with osteomyelitis Plan: patient evaluated and chart reviewed discussed in detail with attending Dr. Barton labs and vitals reviewed; afebrile continue IV abx as per ID picc line placed, will need 4-6 weeks of IV abx for OM of right foot continue PT daily total contact cast remains intact podiatry will continue to monitor while patient remains in house <Jamie Barton - Last Filed: 07/07/16 15:21> Objective - Vital Signs/Intake and Output Vital Signs (last 24 hours): Temp Pulse Resp BP Pulse Ox 98.1 F 99 H 18 121/75 97 07/07/16 09:56 07/07/16 10:52 07/07/16 09:56 07/07/16 10:52 07/07/16 09:56 - Medications Medications: Current Medications Aspirin (Ecotrin) 81 mg PO 0800 [facility] Last Admin: 07/07/16 08:20 Dose: 81 mg Atorvastatin Calcium (Lipitor) 80 mg PO DIN [facility] Carvedilol (Coreg) 6.25 mg PO BID [facility] Last Admin: 07/07/16 10:52 Dose: 6.25 mg Gabapentin (Neurontin) 300 mg PO TID [facility] PRN Reason: Protocol Last Admin: 07/07/16 14:22 Dose: 300 mg Cefazolin Sodium (Ancef 1gm In Ns) 1 gm in 100 mls @ 100 mls/hr IVPB Q8 [facility] PRN Reason: Protocol Last Admin: 07/07/16 14:22 Dose: 100 mls/hr Losartan Potassium (Cozaar) 100 mg PO DAILY [facility] Last Admin: 07/07/16 10:52 Dose: 100 mg Prasugrel (Effient) 10 mg PO DAILY [facility] Tramadol HCl (Ultram) 50 mg PO Q6H PRN PRN Reason: Pain, moderate (4-7) Attending/Attestation - Attestation I have personally seen and examined this patient.: Yes I have fully participated in the care of the patient.: Yes I have reviewed all pertinent clinical information, including history, physical exam and plan: Yes
--- NOTE | 2016-07-07 17:58 | CP.PCM.CON ---
History of Present Illness - History of Present Illness History of Present Illness: Infectious Disease Consultation: July 07, 2016 56 yo male with multiple hospitalizations at numerous facilities for his lower extremities. Patient with swelling and drainage from ulceration at the base of the third toe on the right foot. The patient denies fevers or chills. MRI was done recently showing possible abscess formation at the base of the third toe in the right foot and strong suspicion for osteomyelitis. The patient has severe swelling of the right foot. The patient was to go for PICC line placement and start on 6 week course of Ancef IV q8hrs for osteomyelitis and the possible abscess formation. During the past 3 days, he appears to be responding to the Ancef treatment. The patient is concerned about treatment after TRCU time as he does not have the money to support Home IV therapy after TRCU time is completed. PMHx: Hypertension, Coronary Artery disease, Peripheral Vascular Disease, Obesity, [place] history, Bilateral lower extremity neuropathy, history of osteomyelitis. PSHx: Bone biopsy Allergies: NKDA Social Hx: Ex-smoker, Ex-EtOH user. On disability now. Medications: Active Medications Aspirin (Ecotrin) 81 mg PO 0800 [facility] Last Admin: 07/07/16 08:20 Dose: 81 mg Atorvastatin Calcium (Lipitor) 80 mg PO DIN [facility] Carvedilol (Coreg) 6.25 mg PO BID [facility] Last Admin: 07/07/16 10:52 Dose: 6.25 mg Gabapentin (Neurontin) 300 mg PO TID [facility] PRN Reason: Protocol Last Admin: 07/07/16 14:22 Dose: 300 mg Cefazolin Sodium (Ancef 1gm In Ns) 1 gm in 100 mls @ 100 mls/hr IVPB Q8 [facility] PRN Reason: Protocol Last Admin: 07/07/16 14:22 Dose: 100 mls/hr Losartan Potassium (Cozaar) 100 mg PO DAILY [facility] Last Admin: 07/07/16 10:52 Dose: 100 mg Prasugrel (Effient) 10 mg PO DAILY [facility] Tramadol HCl (Ultram) 50 mg PO Q6H PRN PRN Reason: Pain, moderate (4-7) Family Hx: None ROS: No fevers, chills, nausea, vomiting, diarrhea, headaches, dizziness, chest pain , abdominal pain, melena, hematuria, hematemesis, hematochezia, depression, anxiety Past Patient History - Tetanus Immunizations Tetanus Immunization: Unknown - Past Social History Smoking Status: Former Smoker - CARDIAC Hx Cardiac Disorders: Yes ([place], coronary stents) Hx Hypertension: Yes - PULMONARY Hx Respiratory Disorders: No - NEUROLOGICAL Hx Neurological Disorder: Yes (Neuropathy both lower legs) - HEENT Hx HEENT Problems: (WEARS RX GLASSES) - RENAL Hx Chronic Kidney Disease: No - ENDOCRINE/METABOLIC Hx Endocrine Disorders: No - HEMATOLOGICAL/ONCOLOGICAL Hx Blood Disorders: No Other/Comment: lymphedema to right leg - INTEGUMENTARY Hx Dermatological Problems: Yes (STASIS ULCER TO RIGHT BALL OF FOOT) - MUSCULOSKELETAL/RHEUMATOLOGICAL Hx Falls: No - GASTROINTESTINAL Hx Gastrointestinal Disorders: No - GENITOURINARY/GYNECOLOGICAL Hx Genitourinary Disorders: No - PSYCHIATRIC Hx Psychophysiologic Disorder: Yes (ETOH occ. - no alcohol since 2016) - SURGICAL HISTORY Hx Surgeries: Yes (Right ft osteomyelitis) Meds Allergies/Adverse Reactions: Allergies Allergy/AdvReac Type Severity Reaction Status Date / Time No Known Allergies Allergy Verified 07/06/16 22:16 - Medications Medications: Current Medications Aspirin (Ecotrin) 81 mg PO 0800 [facility] Last Admin: 07/07/16 08:20 Dose: 81 mg Atorvastatin Calcium (Lipitor) 80 mg PO DIN [facility] Carvedilol (Coreg) 6.25 mg PO BID [facility] Last Admin: 07/07/16 10:52 Dose: 6.25 mg Gabapentin (Neurontin) 300 mg PO TID [facility] PRN Reason: Protocol Last Admin: 07/07/16 14:22 Dose: 300 mg Cefazolin Sodium (Ancef 1gm In Ns) 1 gm in 100 mls @ 100 mls/hr IVPB Q8 [facility] PRN Reason: Protocol Last Admin: 07/07/16 14:22 Dose: 100 mls/hr Losartan Potassium (Cozaar) 100 mg PO DAILY [facility] Last Admin: 07/07/16 10:52 Dose: 100 mg Prasugrel (Effient) 10 mg PO DAILY [facility] Tramadol HCl (Ultram) 50 mg PO Q6H PRN PRN Reason: Pain, moderate (4-7) Physical Exam - Constitutional Appears: Non-toxic, No Acute Distress, Chronically Ill - Head Exam Head Exam: ATRAUMATIC, NORMOCEPHALIC - Eye Exam Eye Exam: EOMI, PERRL Pupil Exam: NORMAL ACCOMODATION, PERRL - ENT Exam ENT Exam: Mucous Membranes Moist, Normal External Ear Exam, TM's Normal Bilaterally - Neck Exam Neck exam: Positive for: Full Rom, Normal Inspection - Respiratory Exam Respiratory Exam: Clear to Auscultation Bilateral, NORMAL BREATHING PATTERN. absent: Rales, Rhonchi, Wheezes - Cardiovascular Exam Cardiovascular Exam: REGULAR RHYTHM, RRR, +S1, +S2 - GI/Abdominal Exam GI & Abdominal Exam: Normal Bowel Sounds, Soft. absent: Distended, Tenderness - Extremities Exam Additional comments: Right leg with +2-3 edema of the entire right leg. 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 No odor. Probes to bone. Sloughing of the skin on both legs. - Neurological Exam Neurological exam: Alert, CN II-XII Intact, Oriented x3 Additional comments: decreased sensation of both lower extremities. Weak distal pulses. chronic venous stasis changes to both legs with right much worse than left. - Psychiatric Exam Psychiatric exam: Normal Affect, Normal Mood - Skin Skin Exam: Intact, Normal Color Results - Vital Signs Recent Vital Signs: Last Vital Signs Temp 98.6 F 07/07/16 16:04 Pulse 67 07/07/16 16:04 Resp 18 07/07/16 16:04 BP 149/71 07/07/16 16:04 Pulse Ox 93 L 07/07/16 16:04 Assessment & Plan - Assessment and Plan (Free Text) Assessment: 56 yo male with extensive past medical history as listed above with signs of abscess formation and osteomyelitis on MRI taken at [facility] [place] a few days ago. The patient with HTN, CAD, and PVD. He was on Amoxicillin for therapy. At this point in time, the patient requires PICC line placement and IV antibiotic infusion. Wound cultures grew a sensitive E. coli. However, the patient has borderline renal function. As this point in time, would start Ancef 1gm q8hrs for a minimum of 6 weeks of therapy. Monitor weekly ESR and CRP. Since the time I saw the patient in the wound care center, the patient required admission for increasing pain of the right foot. He is scheduled for the OR on Sunday due to his anticoagulation medications and time required to clear them from his body. Repeat cultures taken. Remains on Ancef IV for antibiotic treatment. PICC line placed. On Ancef based on recent wound cultures done in wound care center showing E. coli growth. Dr. Morrell is reconsidering surgery as the wound on the right foot appears to be healing at a faster pace than expected. There is also an issue with home IV infusion as the patient is unable to cover the deductible costs for the IV antibiotics. He is requesting if there are other options available for him. He is now in the TRCU since the late evening. Thank you for allowing me to participate in the care of the patient, we will follow with you.
[2016-07-08] MEDS: ceFAZolin 1 gm in NS 1 GM/100 ML BAG IVPB SCH ×3 (06:00→22:01)
--- NOTE | 2016-07-08 09:45 | PN ---
DATE: 07/08/2016 SUBJECTIVE: A 56-year-old male seen at bedside in TCU for continued evaluation and management of a s evere right foot ulceration with osteomyelitis of the underlying bone. The patient has his total con tact cast intact. He denies experiencing any fever, chills, nausea or vomiting. VITAL SIGNS: Reveal temperature of 98.6, pulse rate of 67, blood pressure 147/71, respiratory rate o f 18. LABORATORY: Most recent laboratory findings reveal a white count of 7.9, hemoglobin of 11, hematocri t of 34.2, platelet count of 380. OBJECTIVE: The patient's total contact cast is intact, it is clean and dry, it has been reinforced w stanford Cob[employer]. He is able to move his toes and his capillary filling time is less than 3 seconds on all the digits on the right lower extremity. ASSESSMENT: Full thickness right foot ulceration with osteomyelitis. PLAN: Discussed 4-6 weeks of antibiotics with the patient, and he states that his insurance may not cover the full cost of the infusions and he is unable to pay the remainder. He is requesting if ther e are other options available to him at this point and stated at one time he had come to the hospital once a day for an IV infusion for previous infection and daily therapy was covered. I told patient that he has to speak to the hospital social worker to see if that is an option that is available to him. Dr. Stevenson's note was read and appreciated and he is aware of the patient's financial difficulties and insura nce coverage. The patient will be seen and followed daily. Jamie Barton DPM cc: [id number] TT: 07/08/2016 09:45:04 Confirmation # [id number] Dictation # [id number] lucia
--- NOTE | 2016-07-08 17:25 | CP.PCM.PN ---
Subjective - Date & Time of Evaluation Date of Evaluation: 07/08/16 Time of Evaluation: 17:00 - Subjective Subjective: Infectious Disease Follow Up: July 08, 2016 56 yo male with multiple hospitalizations at numerous facilities for his lower extremities. Patient with swelling and drainage from ulceration at the base of the third toe on the right foot. The patient denies fevers or chills. MRI was done recently showing possible abscess formation at the base of the third toe in the right foot and strong suspicion for osteomyelitis. The patient has severe swelling of the right foot. The patient was to go for PICC line placement and start on 6 week course of Ancef IV q8hrs for osteomyelitis and the possible abscess formation. During the past 3 days, he appears to be responding to the Ancef treatment. The patient is concerned about treatment after TRCU time as he does not have the money to support the deductible for Home IV therapy after TRCU time is completed. Objective - Vital Signs/Intake and Output Vital Signs (last 24 hours): Temp Pulse Resp BP Pulse Ox 99.8 F H 74 18 113/67 97 07/08/16 16:00 07/08/16 16:00 07/08/16 16:00 07/08/16 16:00 07/08/16 16:00 - Medications Medications: Current Medications Aspirin (Ecotrin) 81 mg PO 0800 [facility] Last Admin: 07/08/16 08:27 Dose: 81 mg Atorvastatin Calcium (Lipitor) 80 mg PO DIN [facility] Last Admin: 07/07/16 18:00 Dose: 80 mg Carvedilol (Coreg) 6.25 mg PO BID [facility] Last Admin: 07/08/16 10:35 Dose: 6.25 mg Gabapentin (Neurontin) 300 mg PO TID [facility] PRN Reason: Protocol Last Admin: 07/08/16 14:42 Dose: 300 mg Cefazolin Sodium (Ancef 1gm In Ns) 1 gm in 100 mls @ 100 mls/hr IVPB Q8 [facility] PRN Reason: Protocol Last Admin: 07/08/16 14:42 Dose: 100 mls/hr Losartan Potassium (Cozaar) 100 mg PO DAILY [facility] Last Admin: 07/08/16 10:36 Dose: 100 mg Prasugrel (Effient) 10 mg PO DAILY [facility] Last Admin: 07/08/16 10:36 Dose: 10 mg Tramadol HCl (Ultram) 50 mg PO Q6H PRN PRN Reason: Pain, moderate (4-7) - Constitutional Appears: Non-toxic, No Acute Distress, Chronically Ill - Head Exam Head Exam: ATRAUMATIC, NORMOCEPHALIC - Eye Exam Eye Exam: EOMI, PERRL Pupil Exam: NORMAL ACCOMODATION, PERRL - ENT Exam ENT Exam: Mucous Membranes Moist, Normal External Ear Exam, TM's Normal Bilaterally - Neck Exam Neck Exam: Full ROM, Normal Inspection - Respiratory Exam Respiratory Exam: Clear to Ausculation Bilateral, NORMAL BREATHING PATTERN. absent: Rales, Rhonchi, Wheezes - Cardiovascular Exam Cardiovascular Exam: REGULAR RHYTHM, RRR, +S1, +S2 - GI/Abdominal Exam GI & Abdominal Exam: Soft, Normal Bowel Sounds. absent: Distended, Tenderness - Extremities Exam Additional comments: Right leg with +1-2 edema of the entire right leg. 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 No odor. Probes to bone. Sloughing of the skin on both legs. Overall, the edema to the lower extremities have decreased substantially. - Neurological Exam Neurological Exam: Alert, Awake, CN II-XII Intact, Oriented x3 Additional comments: decreased sensation of both lower extremities. Weak distal pulses. chronic venous stasis changes to both legs with right much worse than left. - Psychiatric Exam Psychiatric exam: Normal Affect, Normal Mood - Skin Skin Exam: Intact, Normal Color Assessment and Plan - Assessment and Plan (Free Text) Assessment: 56 yo male with extensive past medical history as listed above with signs of abscess formation and osteomyelitis on MRI taken at [facility] [place] a few days ago. The patient with HTN, CAD, and PVD. He was on Amoxicillin for therapy. At this point in time, the patient requires PICC line placement and IV antibiotic infusion. Wound cultures grew a sensitive E. coli. However, the patient has borderline renal function. As this point in time, would start Ancef 1gm q8hrs for a minimum of 6 weeks of therapy. Monitor weekly ESR and CRP. Since the time I saw the patient in the wound care center, the patient required admission for increasing pain of the right foot. He is scheduled for the OR on Sunday due to his anticoagulation medications and time required to clear them from his body. Repeat cultures taken. Remains on Ancef IV for antibiotic treatment. PICC line placed. On Ancef based on recent wound cultures done in wound care center showing E. coli growth. Right foot appears to be healing at a faster pace than expected and surgery is no longer being considered. There is also an issue with home IV infusion as the patient is unable to cover the deductible costs for the IV antibiotics and home care services. He is requesting if there are other options available for him. Possible that Infusion clinic or Subacute placement may be more viable for the patient from the patient's financial perspective. Thank you for allowing me to participate in the care of the patient, we will follow with you.
[2016-07-09] MEDS: ceFAZolin 1 gm in NS 1 GM/100 ML BAG IVPB SCH ×3 (05:37→21:52)
--- NOTE | 2016-07-09 14:28 | CP.PCM.PN ---
Subjective - Date & Time of Evaluation Date of Evaluation: 07/09/16 Time of Evaluation: 12:45 - Subjective Subjective: Infectious Disease Follow Up: July 09, 2016 56 yo male with multiple hospitalizations at numerous facilities for his lower extremities. Patient with swelling and drainage from ulceration at the base of the third toe on the right foot. The patient denies fevers or chills. MRI was done recently showing possible abscess formation at the base of the third toe in the right foot and strong suspicion for osteomyelitis. The patient has severe swelling of the right foot. The patient was to go for PICC line placement and start on 6 week course of Ancef IV q8hrs for osteomyelitis and the possible abscess formation. During the past 3 days, he appears to be responding to the Ancef treatment. The patient is concerned about treatment after TRCU time as he does not have the money to support the deductible for Home IV therapy after TRCU time is completed. Objective - Vital Signs/Intake and Output Vital Signs (last 24 hours): Temp Pulse Resp BP Pulse Ox 99 F 67 16 114/75 96 07/09/16 08:00 07/09/16 08:00 07/09/16 08:00 07/09/16 09:11 07/09/16 06:00 Intake and Output: 07/09/16 07/09/16 06:59 18:59 Intake Total 520 Balance 520 - Medications Medications: Current Medications Aspirin (Ecotrin) 81 mg PO 0800 [facility] Last Admin: 07/09/16 09:10 Dose: 81 mg Atorvastatin Calcium (Lipitor) 80 mg PO DIN [facility] Last Admin: 07/08/16 17:34 Dose: 80 mg Carvedilol (Coreg) 6.25 mg PO BID [facility] Last Admin: 07/09/16 09:11 Dose: 6.25 mg Gabapentin (Neurontin) 300 mg PO TID [facility] PRN Reason: Protocol Last Admin: 07/09/16 14:11 Dose: 300 mg Cefazolin Sodium (Ancef 1gm In Ns) 1 gm in 100 mls @ 100 mls/hr IVPB Q8 [facility] PRN Reason: Protocol Last Admin: 07/09/16 14:11 Dose: 100 mls/hr Losartan Potassium (Cozaar) 100 mg PO DAILY [facility] Last Admin: 07/09/16 09:11 Dose: 100 mg Prasugrel (Effient) 10 mg PO DAILY [facility] Last Admin: 07/09/16 09:11 Dose: 10 mg Tramadol HCl (Ultram) 50 mg PO Q6H PRN PRN Reason: Pain, moderate (4-7) - Constitutional Appears: Non-toxic, No Acute Distress, Chronically Ill - Head Exam Head Exam: ATRAUMATIC, NORMOCEPHALIC - Eye Exam Eye Exam: EOMI, PERRL Pupil Exam: NORMAL ACCOMODATION, PERRL - ENT Exam ENT Exam: Mucous Membranes Moist, Normal External Ear Exam, TM's Normal Bilaterally - Neck Exam Neck Exam: Full ROM, Normal Inspection - Respiratory Exam Respiratory Exam: Clear to Ausculation Bilateral, NORMAL BREATHING PATTERN. absent: Rales, Rhonchi, Wheezes - Cardiovascular Exam Cardiovascular Exam: REGULAR RHYTHM, RRR, +S1, +S2 - GI/Abdominal Exam GI & Abdominal Exam: Soft, Normal Bowel Sounds. absent: Distended, Tenderness - Extremities Exam Additional comments: Right leg with +1-2 edema of the entire right leg. Stage IV ulceration on base of the 3rd toe ventral surface with prior drainage. No odor. Probes to bone. Sloughing of the skin on both legs. Overall, the edema to the lower extremities have decreased substantially compared to initial admission. - Neurological Exam Neurological Exam: Alert, Awake, CN II-XII Intact, Oriented x3 Additional comments: decreased sensation of both lower extremities. Weak distal pulses. chronic venous stasis changes to both legs with right much worse than left. - Psychiatric Exam Psychiatric exam: Normal Affect, Normal Mood - Skin Skin Exam: Intact, Normal Color Assessment and Plan - Assessment and Plan (Free Text) Assessment: 56 yo male with extensive past medical history as listed above with signs of abscess formation and osteomyelitis [place] [facility] [place] The patient with HTN, CAD, and PVD. He was on Amoxicillin for therapy. At this point in time, the patient requires PICC line placement and IV antibiotic infusion. Wound cultures grew a sensitive E. coli. However, the patient has borderline renal function. As this point in time, would start Ancef 1gm q8hrs for a minimum of 6 weeks of therapy. Monitor weekly ESR and CRP. Since the time I saw the patient in the wound care center, the patient required admission for increasing pain of the right foot. He is scheduled for the OR on Sunday due to his anticoagulation medications and time required to clear them from his body. Repeat cultures taken. Remains on Ancef IV for antibiotic treatment. PICC line placed. On Ancef based on recent wound cultures done in wound care center showing E. coli growth. Right foot appears to be healing at a faster pace than expected and surgery is no longer being considered. There is also an issue with home IV infusion as the patient is unable to cover the deductible costs for the IV antibiotics and home care services. He is requesting if there are other options available for him. Possible that Infusion clinic or Subacute placement may be more viable for the patient from the patient's financial perspective. Will have to see if bilingual patient support caseworker or social work can help him navigate these issues. Thank you for allowing me to participate in the care of the patient, we will follow with you.
[2016-07-10] MEDS: ceFAZolin 1 gm in NS 1 GM/100 ML BAG IVPB SCH ×3 (05:33→22:02)
--- NOTE | 2016-07-10 09:14 | PN ---
DATE: 07/10/2016 SUBJECTIVE: The patient has no complaints of any chest pain, no shortness of breath, no headaches. PHYSICAL EXAMINATION: VITAL SIGNS: Temperature is 98.1, pulse of 63, blood pressure is 118/74, respirations 16. GENERAL: The patient comfortable, in no acute distress. HEENT: Anicteric sclerae. Moist mucosa. NECK: No JVD or adenopathy. CARDIAC: S1/S2. No murmurs. No rubs. Regular. RESPIRATORY: Clear to auscultation bilaterally. No wheezes, rales, or rhonchi. Good air entry. ABDOMEN: Bowel sounds are positive, soft, nontender, and nondistended. EXTREMITIES: No edema. Has 1+ pulses. ASSESSMENT: 1. Right foot ulcer. 2. Status post peripherally inserted central catheter line. 3. Hypertension. 4. Coronary artery disease. 5. Obesity with a body mass index of 38. PLAN: The patient is currently comfortable, is being followed by Dr. Stevenson from infectious disease. I appreciate his input. The patient is on a 6-week course of antibiotics. He is on Neurontin for neur opathy. He is on Lipitor for dyslipidemia. He is on his Effient. The patient is on losartan for hi s hypertension. He is on a heart healthy diet. Hank Barroso MD cc: [id number] TT: 07/10/2016 09:13:32 Confirmation # [id number] Dictation # [id number] en
--- NOTE | 2016-07-10 13:46 | PN ---
DATE: 07/10/2016 This is a 56-year-old male seen for followup of an open fracture to his right foot. The patient has a history of lymphedema to the foot. He also has had a history of osteomyelitis in the past to the [facility], which did resolve with IV antibiotics. The patient had been seen at the [facility], at which time it was noted that he had a sinus tract that went right down to the second metatarsal. X-ray showed that patient had a mildly displaced second metatarsal fracture. However, he has multip le stage I fractures in his foot. He also has a bony cyst in his calcaneus. It was decided not to d o any resection of the foot since the wound was healing nicely with off weightbearing and patient is on a 6-week course of IV antibiotics as per infectious disease. He also was placed in an offloading cast on of last week for the foot. We had to bivalve the cast because of patient's lymphede ma. He tends to get a gross amount of edema to the foot and leg. Thus, the cast is bivalved to allo w for some swelling. We also are changing the cast on a weekly basis because patient is neuropathic and has no sensation of any rubs that would be occurring up underneath the cast. PHYSICAL EXAMINATION: EXTREMITIES: We inspected the wound. The wound is clean. It is 100% granular. There was minimal d rainage on the dressing. There is no cellulitis. The edema is mild at this time, +2 and there is no longer any fulminant signs of infection. ASSESSMENT: Osteomyelitis with a fracture to the second metatarsal of the right foot and Charcot dis ease to the right foot. PLAN OF TREATMENT: Cast is being changed today. However, patient did complain of thigh pain. He th ought it might be from wearing the cast and walking as he states funny. However, there is pain on pa lpation on the medial aspect of the left thigh, so a venous ultrasound was ordered to rule out any de ep venous thrombosis. He is on Effient antiplatelet therapy. Shameka Morrell DPM cc: [id number] TT: 07/10/2016 13:46:01 Confirmation # [id number] Dictation # [id number] en
--- NOTE | 2016-07-10 14:59 | CP.PCM.PN ---
Subjective - Date & Time of Evaluation Date of Evaluation: 07/10/16 Time of Evaluation: 14:50 - Subjective Subjective: Infectious Disease Follow Up: July 10, 2016 56 yo male with multiple hospitalizations at numerous facilities for his lower extremities. Patient with swelling and drainage from ulceration at the base of the third toe on the right foot. The patient denies fevers or chills. MRI was done recently showing possible abscess formation at the base of the third toe in the right foot and strong suspicion for osteomyelitis. The patient has severe swelling of the right foot. The patient was to go for PICC line placement and start on 6 week course of Ancef IV q8hrs for osteomyelitis and the possible abscess formation. During the past 3 days, he appears to be responding to the Ancef treatment. The patient is concerned about treatment after TRCU time as he does not have the money to support the deductible for Home IV therapy after TRCU time is completed. Objective - Vital Signs/Intake and Output Vital Signs (last 24 hours): Temp Pulse Resp BP Pulse Ox 98.8 F 67 18 121/91 H 99 07/10/16 10:00 07/10/16 10:18 07/10/16 10:00 07/10/16 10:18 07/10/16 10:00 Intake and Output: 07/10/16 07/10/16 06:59 18:59 Intake Total 680 420 Balance 680 420 - Medications Medications: Current Medications Aspirin (Ecotrin) 81 mg PO 0800 [facility] Last Admin: 07/10/16 08:42 Dose: 81 mg Atorvastatin Calcium (Lipitor) 80 mg PO DIN [facility] Last Admin: 07/09/16 18:17 Dose: 80 mg Carvedilol (Coreg) 6.25 mg PO BID [facility] Last Admin: 07/10/16 10:18 Dose: 6.25 mg Gabapentin (Neurontin) 300 mg PO TID [facility] PR[facility] Reason: Protocol Last Admin: 07/10/16 13:31 Dose: 300 mg Cefazolin Sodium (Ancef 1gm In Ns) 1 gm in 100 mls @ 100 mls/hr IVPB Q8 [facility] PRN Reason: Protocol Last Admin: 07/10/16 13:32 Dose: 100 mls/hr Losartan Potassium (Cozaar) 100 mg PO DAILY [facility] Last Admin: 07/10/16 10:18 Dose: 100 mg Prasugrel (Effient) 10 mg PO DAILY [facility] Last Admin: 07/10/16 10:18 Dose: 10 mg Tramadol HCl (Ultram) 50 mg PO Q6H PRN PRN Reason: Pain, moderate (4-7) - Constitutional Appears: Non-toxic, No Acute Distress, Chronically Ill - Head Exam Head Exam: ATRAUMATIC, NORMOCEPHALIC - Eye Exam Eye Exam: EOMI, PERRL Pupil Exam: NORMAL ACCOMODATION, PERRL - ENT Exam ENT Exam: Mucous Membranes Moist, Normal External Ear Exam, TM's Normal Bilaterally - Neck Exam Neck Exam: Full ROM, Normal Inspection - Respiratory Exam Respiratory Exam: Clear to Ausculation Bilateral, Wheezes, NORMAL BREATHING PATTERN. absent: Rales, Rhonchi - Cardiovascular Exam Cardiovascular Exam: REGULAR RHYTHM, RRR, +S1, +S2 - GI/Abdominal Exam GI & Abdominal Exam: Soft, Normal Bowel Sounds. absent: Distended, Tenderness - Extremities Exam Additional comments: Right leg with +1-2 edema of the entire right leg. Stage IV ulceration on base of the 3rd toe ventral surface with prior drainage. No odor. Probes to bone. Sloughing of the skin on both legs. Overall, the edema to the lower extremities have decreased substantially compared to initial admission. - Neurological Exam Neurological Exam: Alert, Awake, CN II-XII Intact, Oriented x3 Additional comments: decreased sensation of both lower extremities. Weak distal pulses. chronic venous stasis changes to both legs with right much worse than left. - Psychiatric Exam Psychiatric exam: Normal Affect, Normal Mood - Skin Additional comments: As Above Assessment and Plan - Assessment and Plan (Free Text) Assessment: 56 yo male with extensive past medical history as listed above with signs of abscess formation and osteomyelitis on MRI taken at [facility] a few days ago. The patient with HTN, CAD, and PVD. He was on Amoxicillin for therapy. At this point in time, the patient requires PICC line placement and IV antibiotic infusion. Wound cultures grew a sensitive E. coli. However, the patient has borderline renal function. As this point in time, would start Ancef 1gm q8hrs for a minimum of 6 weeks of therapy. Monitor weekly ESR and CRP. Since the time I saw the patient in the wound care center, the patient required admission for increasing pain of the right foot. He is scheduled for the OR on Sunday due to his anticoagulation medications and time required to clear them from his body. Repeat cultures taken. Remains on Ancef IV for antibiotic treatment. PICC line placed. On Ancef based on recent wound cultures done in wound care center showing E. coli growth. Right foot appears to be healing at a faster pace than expected and surgery is no longer being considered. There is also an issue with home IV infusion as the patient is unable to cover the deductible costs for the IV antibiotics and home care services. He is requesting if there are other options available for him. Possible that Infusion clinic or Subacute placement may be more viable for the patient from the patient's financial perspective. Will have to see if case hardener or social work can help him navigate these issues. Thank you for allowing me to participate in the care of the patient, we will follow with you.
--- NOTE | 2016-07-10 16:05 | US ---
PROCEDURE: Left lower extremity venous US HISTORY: Leg pain and swelling. Evaluate for DVT. PHYSICIAN(S): J Luis Salazar MD. TECHNIQUE: Duplex sonography and color-flow Doppler with graded compression were used to evaluate the deep venous system of the left lower extremity. The exam is limited by body habitus and edema. The tibial veins are not well seen FINDINGS: The visualized deep venous system of the left lower extremity is sonographically normal and compressible. Normal wave forms and augmentation are seen. There is no sonographic evidence for deep venous thrombosis in the visualized segments of the left lower extremity. IMPRESSION: 1. No sonographic evidence for deep venous thrombosis in the visualized segments of the left lower extremity. 2. Limited study.
[2016-07-11] MEDS: ceFAZolin 1 gm in NS 1 GM/100 ML BAG IVPB SCH ×3 (05:30→22:09)
--- NOTE | 2016-07-11 11:30 | CP.PCM.PN ---
<Elizabeth Brown - Last Filed: 07/11/16 11:28> Subjective - Date & Time of Evaluation Date of Evaluation: 07/11/16 Time of Evaluation: 11:28 - Subjective Subjective: 56 year old male was seen at bedside in TCU regarding right foot ulceration with OM. Patient was standing with physical therapy and starting his therapy. Patient denies any acute events overnight. His total contact cast remains c./d/ i. Patient denies n/f/v/d/c/sob. Objective - Vital Signs/Intake and Output Vital Signs (last 24 hours): Temp Pulse Resp BP Pulse Ox 98.3 F 65 18 115/61 99 07/11/16 10:00 07/11/16 10:43 07/11/16 10:00 07/11/16 10:43 07/11/16 10:00 Intake and Output: 07/11/16 07/11/16 06:59 18:59 Intake Total 420 Balance 420 - Medications Medications: Current Medications Aspirin (Ecotrin) 81 mg PO 0800 [facility] Last Admin: 07/11/16 08:32 Dose: 81 mg Atorvastatin Calcium (Lipitor) 80 mg PO DIN [facility] Last Admin: 07/10/16 17:57 Dose: 80 mg Carvedilol (Coreg) 6.25 mg PO BID [facility] Last Admin: 07/11/16 10:43 Dose: 6.25 mg Gabapentin (Neurontin) 300 mg PO TID [facility] PRN Reason: Protocol Last Admin: 07/11/16 10:40 Dose: 300 mg Cefazolin Sodium (Ancef 1gm In Ns) 1 gm in 100 mls @ 100 mls/hr IVPB Q8 [facility] PRN Reason: Protocol Last Admin: 07/11/16 05:30 Dose: 100 mls/hr Losartan Potassium (Cozaar) 100 mg PO DAILY [facility] Last Admin: 07/11/16 10:43 Dose: 100 mg Prasugrel (Effient) 10 mg PO DAILY [facility] Last Admin: 07/11/16 10:42 Dose: 10 mg Tramadol HCl (Ultram) 50 mg PO Q6H PRN PRN Reason: Pain, moderate (4-7) - Constitutional Appears: Well, Non-toxic, No Acute Distress - Extremities Exam Additional comments: total contact cast to RLE remains c.d/i bivalved cast reinforced with coban patient denies calf tenderness or pain able to wiggle toes cft < 3 sec to all digits - Neurological Exam Neurological Exam: Alert, Awake, Oriented x3 - Psychiatric Exam Psychiatric exam: Normal Affect, Normal Mood Assessment and Plan - Assessment and Plan (Free Text) Assessment: 56 yo male seen at bedside for right foot dominguez grade 2 ulceration with osteomyelitis Plan: patient evaluated and chart reviewed discussed in detail with attending Dr. Barton labs and vitals reviewed; afebrile continue IV abx as per ID continue PT daily total contact cast remains intact podiatry will continue to monitor while patient remains in house <Jamie Barton - Last Filed: 07/11/16 12:14> Objective - Vital Signs/Intake and Output Vital Signs (last 24 hours): Temp Pulse Resp BP Pulse Ox 98.3 F 65 18 115/61 99 07/11/16 10:00 07/11/16 10:43 07/11/16 10:00 07/11/16 10:43 07/11/16 10:00 Intake and Output: 07/11/16 07/11/16 06:59 18:59 Intake Total 420 Balance 420 - Medications Medications: Current Medications Aspirin (Ecotrin) 81 mg PO 0800 [facility] Last Admin: 07/11/16 08:32 Dose: 81 mg Atorvastatin Calcium (Lipitor) 80 mg PO DIN [facility] Last Admin: 07/10/16 17:57 Dose: 80 mg Carvedilol (Coreg) 6.25 mg PO BID [facility] Last Admin: 07/11/16 10:43 Dose: 6.25 mg Gabapentin (Neurontin) 300 mg PO TID [facility] PRN Reason: Protocol Last Admin: 07/11/16 10:40 Dose: 300 mg Cefazolin Sodium (Ancef 1gm In Ns) 1 gm in 100 mls @ 100 mls/hr IVPB Q8 [facility] PRN Reason: Protocol Last Admin: 07/11/16 05:30 Dose: 100 mls/hr Losartan Potassium (Cozaar) 100 mg PO DAILY [facility] Last Admin: 07/11/16 10:43 Dose: 100 mg Prasugrel (Effient) 10 mg PO DAILY [facility] Last Admin: 07/11/16 10:42 Dose: 10 mg Tramadol HCl (Ultram) 50 mg PO Q6H PRN PRN Reason: Pain, moderate (4-7) Attending/Attestation - Attestation I have personally seen and examined this patient.: Yes I have fully participated in the care of the patient.: Yes I have reviewed all pertinent clinical information, including history, physical exam and plan: Yes
[2016-07-11 16:37] VITALS: O2SAT 97
--- NOTE | 2016-07-11 17:13 | CP.PCM.PN ---
Subjective - Date & Time of Evaluation Date of Evaluation: 07/11/16 Time of Evaluation: 16:51 - Subjective Subjective: Infectious Disease Follow Up: July 11, 2016 56 yo male with multiple hospitalizations at numerous facilities for his lower extremities. Patient with swelling and drainage from ulceration at the base of the third toe on the right foot. The patient denies fevers or chills. MRI was done recently showing possible abscess formation at the base of the third toe in the right foot and strong suspicion for osteomyelitis. The patient has severe swelling of the right foot. The patient was to go for PICC line placement and start on 6 week course of Ancef IV q8hrs for osteomyelitis and the possible abscess formation. During the past few days, he appears to be responding relatively well to the Ancef treatment. Objective - Vital Signs/Intake and Output Vital Signs (last 24 hours): Temp Pulse Resp BP Pulse Ox 99.3 F 67 15 101/55 L 97 07/11/16 16:00 07/11/16 16:00 07/11/16 16:00 07/11/16 16:00 07/11/16 16:00 Intake and Output: 07/11/16 07/11/16 06:59 18:59 Intake Total 420 Balance 420 - Medications Medications: Current Medications Aspirin (Ecotrin) 81 mg PO 0800 [facility] Last Admin: 07/11/16 08:32 Dose: 81 mg Atorvastatin Calcium (Lipitor) 80 mg PO DIN [facility] Last Admin: 07/10/16 17:57 Dose: 80 mg Carvedilol (Coreg) 6.25 mg PO BID [facility] Last Admin: 07/11/16 10:43 Dose: 6.25 mg Gabapentin (Neurontin) 300 mg PO TID [facility] PRN Reason: Protocol Last Admin: 07/11/16 14:25 Dose: 300 mg Cefazolin Sodium (Ancef 1gm In Ns) 1 gm in 100 mls @ 100 mls/hr IVPB Q8 [facility] PRN Reason: Protocol Last Admin: 07/11/16 14:24 Dose: 100 mls/hr Losartan Potassium (Cozaar) 100 mg PO DAILY [facility] Last Admin: 07/11/16 10:43 Dose: 100 mg Prasugrel (Effient) 10 mg PO DAILY [facility] Last Admin: 07/11/16 10:42 Dose: 10 mg Tramadol HCl (Ultram) 50 mg PO Q6H PRN PRN Reason: Pain, moderate (4-7) - Constitutional Appears: Non-toxic, No Acute Distress, Chronically Ill - Head Exam Head Exam: ATRAUMATIC, NORMOCEPHALIC - Eye Exam Eye Exam: EOMI, PERRL Pupil Exam: NORMAL ACCOMODATION, PERRL - ENT Exam ENT Exam: Mucous Membranes Moist, Normal External Ear Exam, TM's Normal Bilaterally - Neck Exam Neck Exam: Full ROM, Normal Inspection - Respiratory Exam Respiratory Exam: Clear to Ausculation Bilateral, NORMAL BREATHING PATTERN. absent: Rales, Rhonchi, Wheezes - Cardiovascular Exam Cardiovascular Exam: REGULAR RHYTHM, RRR, +S1, +S2 - GI/Abdominal Exam GI & Abdominal Exam: Soft, Normal Bowel Sounds. absent: Distended, Tenderness - Extremities Exam Additional comments: Right leg with +1-2 edema of the entire right leg. Stage IV ulceration on base of the 3rd toe ventral surface with prior drainage. No odor. Probes to bone. Sloughing of the skin on both legs. Overall, the edema to the lower extremities have decreased substantially compared to initial admission. Currently in total contact cast to the RLE. - Neurological Exam Neurological Exam: Alert, Awake, CN II-XII Intact, Oriented x3 Additional comments: decreased sensation of both lower extremities. Weak distal pulses. chronic venous stasis changes to both legs with right much worse than left. - Psychiatric Exam Psychiatric exam: Normal Affect, Normal Mood - Skin Additional comments: As Above. Assessment and Plan - Assessment and Plan (Free Text) Assessment: 56 yo male with extensive past medical history as listed above with signs of abscess formation and osteomyelitis on MRI taken at [facility] [place] a few days ago. The patient with HTN, CAD, and PVD. He was on Amoxicillin for therapy. At this point in time, the patient requires PICC line placement and IV antibiotic infusion. Wound cultures grew a sensitive E. coli. However, the patient has borderline renal function. As this point in time, would start Ancef 1gm q8hrs for a minimum of 6 weeks of therapy. Monitor weekly ESR and CRP. Since the time I saw the patient in the wound care center, the patient required admission for increasing pain of the right foot. He is scheduled for the OR on Sunday due to his anticoagulation medications and time required to clear them from his body. Repeat cultures taken. Remains on Ancef IV for antibiotic treatment. PICC line placed. On Ancef based on recent wound cultures done in wound care center showing E. coli growth. Right foot appears to be healing at a faster pace than expected and surgery is no longer being considered. There is also an issue with home IV infusion as the patient is unable to cover the deductible costs for the IV antibiotics and home care services. He is requesting if there are other options available for him. Possible that Infusion clinic or Subacute placement may be more viable for the patient from the patient's financial perspective. Will have to see if lining caser or social work can help him navigate these issues. Thank you for allowing me to participate in the care of the patient, we will follow with you.
[2016-07-12] MEDS: ceFAZolin 1 gm in NS 1 GM/100 ML BAG IVPB SCH ×2 (06:05→14:23)
--- NOTE | 2016-07-12 10:57 | DS ---
SUBJECTIVE: The patient has no complaints of any chest pain, no shortness of breath, no headaches or dizziness. The patient is going to be discharged home. He is going to continue with IV antibiotics at home for his right foot ulcer. PHYSICAL Ulcer: VITAL SIGNS: Temperature is 99.3, pulse ____, blood pressure 101/55, respirations 18. GENERAL: The patient comfortable, in no acute distress. HEENT: Anicteric sclerae. Moist mucosa. NECK: No JVD or adenopathy. CARDIAC: S1/S2. No murmurs. No rubs. Regular. RESPIRATORY: Clear to auscultation bilaterally. No wheezes, rales, or rhonchi. Good air entry. ABDOMEN: Bowel sounds are positive, soft, nontender, and nondistended. EXTREMITIES: No edema. Has 1+ pulses. The right foot is covered, has a cast in place. ASSESSMENT: 1. Right foot ulcer. 2. Status post peripherally inserted central catheter line. 3. Hypertension. 4. Coronary artery disease. 5. Obesity with a body mass index of 38. PLAN: The patient is currently comfortable. He is going to be on Lipitor for dyslipidemia. He is o n Neurontin for neuropathy. The patient is on losartan for hypertension. He is going to continue wi th his Ancef. He is on a heart healthy diet. CONDITION: Stable. ACTIVITIES: Increase as tolerated. Hank Barroso MD cc: [id number] TT: 07/12/2016 10:56:19 nm
[2016-07-12 11:41] VITALS: BP 109/63; PULSE 76; RESP 18; TEMP 99.1
--- NOTE | 2016-07-12 14:20 | CP.PCM.PN ---
Subjective - Date & Time of Evaluation Date of Evaluation: 07/12/16 Time of Evaluation: 14:00 - Subjective Subjective: Infectious Disease Follow Up: July 12, 2016 56 yo male with multiple hospitalizations at numerous facilities for his lower extremities. Patient with swelling and drainage from ulceration at the base of the third toe on the right foot. The patient denies fevers or chills. MRI was done recently showing possible abscess formation at the base of the third toe in the right foot and strong suspicion for osteomyelitis. The patient has severe swelling of the right foot. The patient was to go for PICC line placement and start on 6 week course of Ancef IV q8hrs for osteomyelitis and the possible abscess formation. During the past few days, he appears to be responding relatively well to the Ancef treatment. Objective - Vital Signs/Intake and Output Vital Signs (last 24 hours): Temp Pulse Resp BP Pulse Ox 99.1 F 76 18 109/63 97 07/12/16 10:00 07/12/16 10:00 07/12/16 10:00 07/12/16 10:00 07/11/16 16:00 Intake and Output: 07/12/16 07/12/16 06:59 18:59 Intake Total 420 Balance 420 - Medications Medications: Current Medications Aspirin (Ecotrin) 81 mg PO 0800 [facility] Last Admin: 07/12/16 08:35 Dose: 81 mg Atorvastatin Calcium (Lipitor) 80 mg PO DIN [facility] Last Admin: 07/11/16 17:54 Dose: 80 mg Carvedilol (Coreg) 6.25 mg PO 0800,1800 [facility] Reason: Protocol Gabapentin (Neurontin) 300 mg PO TID [facility] PRN Reason: Protocol Last Admin: 07/12/16 09:44 Dose: 300 mg Cefazolin Sodium (Ancef 1gm In Ns) 1 gm in 100 mls @ 100 mls/hr IVPB Q8 [facility] PRN Reason: Protocol Last Admin: 07/12/16 06:05 Dose: 100 mls/hr Losartan Potassium (Cozaar) 100 mg PO DAILY [facility] Last Admin: 07/12/16 09:45 Dose: 100 mg Prasugrel (Effient) 10 mg PO DAILY [facility] Last Admin: 07/12/16 09:45 Dose: 10 mg Tramadol HCl (Ultram) 50 mg PO Q6H PRN PRN Reason: Pain, moderate (4-7) Last Admin: 07/12/16 09:38 Dose: 50 mg - Constitutional Appears: Non-toxic, No Acute Distress, Chronically Ill - Head Exam Head Exam: ATRAUMATIC, NORMOCEPHALIC - Eye Exam Eye Exam: EOMI, PERRL Pupil Exam: NORMAL ACCOMODATION, PERRL - ENT Exam ENT Exam: Mucous Membranes Moist, Normal External Ear Exam, TM's Normal Bilaterally - Neck Exam Neck Exam: Full ROM, Normal Inspection - Respiratory Exam Respiratory Exam: Clear to Ausculation Bilateral, NORMAL BREATHING PATTERN. absent: Rales, Rhonchi, Wheezes - Cardiovascular Exam Cardiovascular Exam: REGULAR RHYTHM, RRR, +S1, +S2 - GI/Abdominal Exam GI & Abdominal Exam: Soft, Normal Bowel Sounds. absent: Distended, Tenderness - Extremities Exam Additional comments: Right leg with +1-2 edema of the entire right leg. Stage IV ulceration on base of the 3rd toe ventral surface with prior drainage. No odor. Probes to bone. Sloughing of the skin on both legs. Overall, the edema to the lower extremities have decreased substantially compared to initial admission. Currently in total contact cast to the RLE. - Neurological Exam Neurological Exam: Alert, Awake, CN II-XII Intact, Oriented x3 Additional comments: decreased sensation of both lower extremities. Weak distal pulses. chronic venous stasis changes to both legs with right much worse than left. - Psychiatric Exam Psychiatric exam: Normal Affect, Normal Mood - Skin Additional comments: As Above. Assessment and Plan - Assessment and Plan (Free Text) Assessment: 56 yo male with extensive past medical history as listed above with signs of abscess formation and osteomyelitis on MRI taken at [facility] [place] a few days ago. The patient with HTN, CAD, and PVD. He was on Amoxicillin for therapy. At this point in time, the patient requires PICC line placement and IV antibiotic infusion. Wound cultures grew a sensitive E. coli. However, the patient has borderline renal function. As this point in time, would start Ancef 1gm q8hrs for a minimum of 6 weeks of therapy. Monitor weekly ESR and CRP. Since the time I saw the patient in the wound care center, the patient required admission for increasing pain of the right foot. He is scheduled for the OR on Sunday due to his anticoagulation medications and time required to clear them from his body. Repeat cultures taken. Remains on Ancef IV for antibiotic treatment. PICC line placed. On Ancef based on recent wound cultures done in wound care center showing E. coli growth. Right foot appears to be healing at a faster pace than expected and surgery is no longer being considered. Thank you for allowing me to participate in the care of the patient, we will follow with you.
--- NOTE | 2016-07-12 15:00 | CP.PCM.PN ---
<Elizabeth Brown - Last Filed: 07/12/16 14:47> Subjective - Date & Time of Evaluation Date of Evaluation: 07/12/16 Time of Evaluation: 14:48 - Subjective Subjective: 56 year old male was seen resting comfortably at bedside in TCU regarding right foot ulceration with OM. Patient denies any acute events overnight. He is going home today and will do his infusions at home. He states that he has been doing well in physical therapy. His total contact cast remains c./d/i. Patient denies n/f/v/d/c/sob. Objective - Vital Signs/Intake and Output Vital Signs (last 24 hours): Temp Pulse Resp BP Pulse Ox 99.1 F 76 18 109/63 97 07/12/16 10:00 07/12/16 10:00 07/12/16 10:00 07/12/16 10:00 07/11/16 16:00 Intake and Output: 07/12/16 07/12/16 06:59 18:59 Intake Total 420 Balance 420 - Medications Medications: Current Medications Aspirin (Ecotrin) 81 mg PO 0800 [facility] Last Admin: 07/12/16 08:35 Dose: 81 mg Atorvastatin Calcium (Lipitor) 80 mg PO DIN [facility] Last Admin: 07/11/16 17:54 Dose: 80 mg Carvedilol (Coreg) 6.25 mg PO 0800,1800 [facility] PRN Reason: Protocol Gabapentin (Neurontin) 300 mg PO TID [facility] PRN Reason: Protocol Last Admin: 07/12/16 14:24 Dose: 300 mg Cefazolin Sodium (Ancef 1gm In Ns) 1 gm in 100 mls @ 100 mls/hr IVPB Q8 [facility] PRN Reason: Protocol Last Admin: 07/12/16 14:23 Dose: 100 mls/hr Losartan Potassium (Cozaar) 100 mg PO DAILY [facility] Last Admin: 07/12/16 09:45 Dose: 100 mg Prasugrel (Effient) 10 mg PO DAILY [facility] Last Admin: 07/12/16 09:45 Dose: 10 mg Tramadol HCl (Ultram) 50 mg PO Q6H PRN PRN Reason: Pain, moderate (4-7) Last Admin: 07/12/16 09:38 Dose: 50 mg - Constitutional Appears: Well, Non-toxic, No Acute Distress - Extremities Exam Additional comments: total contact cast to RLE remains c.d/i bivalved cast reinforced with coban patient denies calf tenderness or pain able to wiggle toes cft < 3 sec to all digits - Neurological Exam Neurological Exam: Alert, Awake, Oriented x3 - Psychiatric Exam Psychiatric exam: Normal Affect, Normal Mood Assessment and Plan - Assessment and Plan (Free Text) Assessment: 56 year old male seen at bedside for right foot dominguez grade 2 ulceration with osteomyelitis Plan: patient evaluated and chart reviewed discussed in detail with attending Dr. Morrell labs and vitals reviewed; afebrile continue IV abx as per ID total contact cast remains intact patient to follow up in wound care center <Shameka Morrell - Last Filed: 07/16/16 14:19> Objective - Vital Signs/Intake and Output Vital Signs (last 24 hours): Temp Pulse Resp BP Pulse Ox 99.1 F 76 18 109/63 97 07/12/16 10:00 07/12/16 10:00 07/12/16 10:00 07/12/16 10:00 07/11/16 16:00 Attending/Attestation - Attestation I have personally seen and examined this patient.: Yes I have fully participated in the care of the patient.: Yes I have reviewed all pertinent clinical information, including history, physical exam and plan: Yes
== END 2016-07-12 18:00 | disposition home or self-care (01) | DRG 540 ==
LOC: TRCU 20:17
PROVIDERS: ADMIT Internal Medicine Nephrology; ATTEND Internal Medicine Nephrology
PROC: F07Z9ZZ Gait Training/Functional Ambulation Treatment (ICD-10-PCS; principal; 2016-07-07)
PROC: F08Z4ZZ Home Management Treatment (ICD-10-PCS; 2016-07-07)
DX: M86.8X7 Other osteomyelitis, ankle and foot (principal); L97.519 Non-pressure chronic ulcer of other part of right foot with unspecified severity; L02.611 Cutaneous abscess of right foot; Z79.2 Long term (current) use of antibiotics; G62.9 Polyneuropathy, unspecified; I10 Essential (primary) hypertension; M84.474D Pathological fracture, right foot, subsequent encounter for fracture with routine healing; I25.10 Atherosclerotic heart disease of native coronary artery without angina pectoris; E66.9 Obesity, unspecified; I73.9 Peripheral vascular disease, unspecified; M14.60 Charcot's joint, unspecified site; Z68.38 Body mass index [BMI] 38.0-38.9, adult; I25.2 Old myocardial infarction; Z87.891 Personal history of nicotine dependence

== ENCOUNTER 2016-07-13 17:17 | Inpatient (IN) | payer BC ==
[2016-07-13] MEDS ORDERED: Morphine 4 mg/ml ISec IVP STA (17:52)
--- NOTE | 2016-07-13 17:53 | ED PDOC ---
Arrival/HPI - General Historian: Patient, Family - General Chief Complaint: Lower Extremity Problem/Injury Time Seen by Provider: 07/13/16 17:31 - History of Present Illness Narrative History of Present Illness (Text): 07/13/16 17:53 This 56 yo male with pmh osteomyelitis right foot, presents to this ED c/o left anterior knee pain x 5 days. Patient stated he was admitted in this ED x 10 days ago for osteomyelitis. Patient had a PICC line inserted on left arm. He has been getting Ancef infusion every 8 hr. (Fito Dutton) Past Medical History - Provider Review Nursing Documentation Reviewed: Yes - Infectious Disease Hx of Infectious Diseases: None - Tetanus Immunization Tetanus Immunization: Unknown - Cardiac Hx Cardiac Disorders: Yes (AK, coronary stents) Hx Hypertension: Yes - Pulmonary Hx Respiratory Disorders: No - Neurological Hx Neurological Disorder: Yes (Neuropathy both lower legs) - HEENT Hx HEENT Disorder: (WEARS RX GLASSES) - Renal Hx Renal Disorder: No - Endocrine/Metabolic Hx Endocrine Disorders: No - Hematological/Oncological Hx Blood Disorders: No Other/Comment: lymphedema to right leg - Integumentary Hx Dermatological Disorder: Yes (STASIS ULCER TO RIGHT BALL OF FOOT) - Musculoskeletal/Rheumatological Hx Falls: No - Gastrointestinal Hx Gastrointestinal Disorders: No - Genitourinary/Gynecological Hx Genitourinary Disorders: No - Psychiatric Hx Psychophysiologic Disorder: Yes (ETOH occ. - no alcohol since 2016) Hx Substance Use: No - Past Surgical History Past Surgical History: No Previous - Surgical History Hx Cardiac Catheterization: Yes Hx Coronary Stent: Yes (stents x3 10'14) - Suicidal Assessment Feels Threatened In Home Enviroment: No Family/Social History - Physician Review Nursing Documentation Reviewed: Yes Family/Social History: No Known Family HX Smoking Status: Former Smoker Hx Alcohol Use: Yes (no alcohol since Mar 2016) Hx Substance Use: No Hx Substance Use Treatment: No Allergies/Home Meds Allergies/Adverse Reactions: Allergies No Known Allergies Allergy (Verified 07/06/16 22:16) Home Medications: Home Meds Medication Instructions Recorded Confirmed Aspirin [Ecotrin] 81 mg PO DAILY 07/03/16 07/13/16 Carvedilol [Coreg] 6.25 mg PO BID 07/03/16 07/13/16 Furosemide [Lasix] 40 mg PO DAILY 07/03/16 07/13/16 Gabapentin [Neurontin] 300 mg PO TID 07/03/16 07/13/16 Potassium Chloride [Klor-Con] 20 meq PO BID 07/03/16 07/13/16 Prasugrel [Effient] 10 mg PO DAILY 07/03/16 07/13/16 Rosuvastatin Calcium 20 mg PO HS 07/03/16 07/13/16 Tramadol HCl [Ultram] 50 mg PO Q6H PRN 07/03/16 07/13/16 Valsartan [Diovan] 160 mg PO DAILY 07/03/16 07/13/16 oxyCODONE/Acetaminophen [Percocet 1 tab PO DAILY 07/03/16 07/13/16 5/325 mg Tab] Amoxicillin/Potassium Clav 1 each PO BID 07/13/16 07/13/16 [Amox-Clav 250-125 mg Tablet] Metolazone 5 mg PO DAILY 07/13/16 07/13/16 ceFAZolin [Ancef] 1 gm IV TID 07/13/16 07/13/16 Review of Systems - Review of Systems Constitutional: Normal. absent: Fatigue, Weight Change, Fevers Eyes: Normal ENT: Normal Respiratory: Normal Cardiovascular: Normal Gastrointestinal: Normal Genitourinary Male: Normal Musculoskeletal: Arthralgias (left knee pain), Other (See HPI) Skin: Normal Neurological: Normal Endocrine: Normal Hemo/Lymphatic: Normal Psychiatric: Normal Physical Exam Temperature: Afebrile Blood Pressure: Normal Pulse: Regular Respiratory Rate: Normal Appearance: Positive for: Well-Appearing, Non-Toxic, Comfortable Pain Distress: None Mental Status: Positive for: Alert and Oriented X 3 - Systems Exam Head: Present: Atraumatic, Normocephalic Pupils: Present: PERRL Extroacular Muscles: Present: EOMI Conjunctiva: Present: Normal Mouth: Present: Moist Mucous Membranes Neck: Present: Normal Range of Motion Respiratory/Chest: Present: Clear to Auscultation, Good Air Exchange. No: Respiratory Distress, Accessory Muscle Use Cardiovascular: Present: Regular Rate and Rhythm, Normal S1, S2. No: Murmurs Abdomen: Present: Normal Bowel Sounds. No: Tenderness, Distention, Peritoneal Signs, Rebound, Guarding Back: Present: Normal Inspection. No: CVA Tenderness Upper Extremity: Present: Normal Inspection, NORMAL PULSES, Neurovascularly Intact, Capillary Refill < 2s, Other ((+) PICC line left arm, no cellulitis). No: Cyanosis, Edema, Erythema Lower Extremity: Present: Edema, NORMAL PULSES, Tenderness (Mild anterior knee tenderness. Unable to bend left knee due to pain. No cellulitis, rash. No septic knee joint.), Swelling (mild left lower leg swelling), Temperature Abnormalties (Mild left anterior knee warmth to palpation), Neurovascularly Intact, Capillary Refill < 2 s. No: CALF TENDERNESS, Normal ROM, Theodore's Sign, Erythema, Deformity Neurological: Present: GCS=15, CN II-XII Intact, Speech Normal Skin: Present: Warm, Dry, Normal Color, Other (See LE). No: Rashes Psychiatric: Present: Alert, Oriented x 3 Vital Signs Temp Pulse Resp BP Pulse Ox 07/13/16 22:45 64 16 145/70 100 07/13/16 19:35 69 16 153/94 H 99 07/13/16 17:37 98.8 F 72 18 138/74 98 Medical Decision Making Re-evaluation Time: 20:13 Reassessment Condition: Re-examined, Improving,but remains with symptoms ED Course and Treatment: I was available for consultation during PA evaluation. The chart was reviewed by me, and I agree with disposition. The documented history was done by the physician computer technology teacher. The documented physical exam was done by the physician computer technology teacher. The documented procedures were done by the physician computer technology teacher. ( Christofer Shultz) 07/13/16 18:[address] Barroso regarding left knee pain. intractable left knee pain. Patient unable to ambulate due to pain. He agrees with plan for observation. 07/13/16 20:[address] Mast Orthopedist for consult, since he saw Dr. Mast in the past. (Fito Dutton) - Lab Interpretations Microbiology Results: Microbiology Results 07/14/16 11:00 Synovial Fluid Gram Stain - Final 07/14/16 11:00 Synovial Fluid Body Fluid Culture - Preliminary NO GROWTH AFTER 24 HOURS Lab Results: 07/13/16 18:10 07/13/16 18:10 Lab Results 07/14/16 11:40: Fluid Type Synovial fluid, Synovial WBC 3412.0 H, Synovial RBC 0.0, Synovial Neutrophils 94.8 H, Synovial Lymphocytes 5.2 H, Synov Monos/ Macrophage 0, Synovial Fluid Comment TEST NOT PERFORMED 07/13/16 18:10: C-React Prot High Sens > 15.00 H 07/13/16 18:10: Sodium 136, Chloride 101, Potassium 4.0, Carbon Dioxide 24, Anion Gap 15, BUN 27 H, Creatinine 1.3, Est GFR ( Amer) > 60, Est GFR ( Non-Af Amer) 57, Random Glucose 104, Calcium 9.6, Total Bilirubin 0.9, AST 39, ALT 41, Alkaline Phosphatase 94, Total Protein 8.1, Albumin 3.9, Globulin 4.3, Albumin/Globulin Ratio 0.9 L 07/13/16 18:10: pO2 47, VBG pH 7.35, VBG pCO2 44.0, VBG HCO3 24.3, VBG Total CO2 25.7, VBG O2 Sat (Calc) 84.0 H, VBG Base Excess -1.5 L, VBG Potassium 4.1, Sodium 137.0, Chloride 107.0, Glucose 105, Lactate 1.6, FiO2 21.0, Venous Blood Potassium 4.1 07/13/16 18:10: WBC 6.4, RBC 4.09, Hgb 10.4 L, Hct 32.3 L, MCV 79.0 L, MCH 25.4 , MCHC 32.2, RDW 16.8 H, Plt Count 248, MPV 11.0, Gran % 74.2 H, Lymph % (Auto) 16.1 L, [place] % (Auto) 7.0 H, Eos % (Auto) 2.2, Baso % (Auto) 0.5, Gran # 4.74, Lymph # 1.0 L, [place] # 0.5, Eos # 0.1, Baso # 0.03, ESR 70 H - RAD Interpretation Narrative RAD Interpretations (Text): Knee x-rays: No fx or dislocation. Soft tissue is normal (Fito Dutton) Radiology Orders: 07/13/16 17:49 DUPLEX LOWER EXTRM VEIN LEFT [US] Stat 07/13/16 17:52 KNEE LEFT 2 VIEWS (AP & LAT) [RAD] Stat - Medication Orders Current Medication Orders: Aspirin (Ecotrin) 81 mg PO DAILY [facility] Last Admin: 07/15/16 10:02 Dose: 81 mg Atorvastatin Calcium (Lipitor) 80 mg PO DIN [facility] Last Admin: 07/14/16 18:11 Dose: 80 mg Carvedilol (Coreg) 6.25 mg PO BID [facility] Last Admin: 07/15/16 10:03 Dose: 6.25 mg Enoxaparin Sodium (Lovenox) 40 mg SC DAILY [facility] PRN Reason: Protocol Last Admin: 07/15/16 13:35 Dose: 40 mg Furosemide (Lasix) 40 mg PO DAILY [facility] Last Admin: 07/15/16 10:02 Dose: Not Given Non-Admin Reason: Patient Refused Gabapentin (Neurontin) 300 mg PO TID [facility] PRN Reason: Protocol Last Admin: 07/15/16 13:35 Dose: 300 mg Cefazolin Sodium (Ancef 1gm In Ns) 1 gm in 100 mls @ 100 mls/hr IVPB Q8 [facility] Last Admin: 07/15/16 13:34 Dose: 100 mls/hr Morphine Sulfate (Morphine) 4 mg IVP Q6H PRN PRN Reason: Pain, severe (8-10) Last Admin: 07/15/16 08:19 Dose: 4 mg Re-Assess: [facility] Pain Assessment Document 07/15/16 09:19 (Rec: 07/15/16 10:03 [id number]) Pain Reassessment Is this a pain reassessment? Yes Presence of Pain Presence of Pain Yes Description Intensity of Pain at present 5 Oxycodone/Acetaminophen (Percocet 5/325 Mg Tab) 1 tab PO Q4 PRN PRN Reason: Pain, moderate (4-7) Stop: 07/17/16 00:01 Last Admin: 07/14/16 18:16 Dose: 1 tab Polyethylene Glycol (Miralax) 17 gm PO DAILY [facility] Prasugrel (Effient) 10 mg PO DAILY [facility] Last Admin: 07/15/16 10:02 Dose: 10 mg Discontinued Medications Bupivacaine HCl (Marcaine 0.5%) 0 ml IJ ONCE ONE Stop: 07/14/16 10:31 Last Admin: 07/14/16 12:08 Dose: Cefazolin Sodium (Ancef) 1 gm IVPB Q8H [facility] PRN Reason: Protocol Stop: 07/14/16 12:00 Last Admin: 07/13/16 22:56 Dose: 1 gm Methylprednisolone Acetate (Depo-Medrol) 40 mg IM ONCE ONE Stop: 07/14/16 10:10 Last Admin: 07/14/16 12:08 Dose: Morphine Sulfate (Morphine) 4 mg IVP STAT STA Stop: 07/13/16 17:53 Last Admin: 07/13/16 18:19 Dose: 4 mg Morphine Sulfate (Morphine) 4 mg IVP Q6H [facility] Stop: 07/14/16 09:00 Last Admin: 07/14/16 08:15 Dose: 4 mg Re-Assess: [facility] Pain Assessment Document 07/14/16 09:15 RS (Rec: 07/14/16 12:08 [id number]) Pain Reassessment Is this a pain reassessment? Yes Presence of Pain Presence of Pain No Disposition/Present on Arrival - Present on Arrival Any Indicators Present on Arrival: No History of DVT/PE: No History of Uncontrolled Diabetes: No Urinary Catheter: No History of Decub. Ulcer: No History Surgical Site Infection Following: Orthopedic Procedures - Disposition Have Diagnosis and Disposition been Completed?: Yes Disposition Time: 20:14 Patient Plan: Admission - Disposition Diagnosis: Intractable pain, Knee pain, acute, Knee swelling Disposition: HOSPITALIZED Patient Problems: Current Active Problems Problem Status Onset Intractable pain Acute Knee pain, acute Acute Knee swelling Acute Condition: STABLE
[2016-07-13 18:25] LABS: ADD MANUAL DIFF? NO
[2016-07-13 18:29] LABS: BASO # 0.03 [, K/mm3] (0.0-2.0); BASO % 0.5 % (0.0-3.0); EOS # 0.1 (0.0-0.7); EOS % 2.2 % (1.5-5.0); GRAN # 4.74 (1.4-6.5); GRAN % 74.2 % (50.0-68.0); HEMATOCRIT 32.3 % (42.0-52.0); LYMPH % 16.1 % (22.0-35.0); MEAN CORPUSCULAR HEMOGLOBIN 25.4 pg (25.0-35.0); MEAN CORPUSCULAR HGB CONC 32.2 g/dl (31.0-37.0); MONO # 0.5 (0.1-0.6); PLATELET COUNT 248 [, 10^3/uL] (120.0-450.0); RED CELL DISTRIBUTION WIDTH 16.8 % (11.5-14.5); WHITE BLOOD COUNT 6.4 [, 10^3/ul] (4.5-11.0)
[2016-07-13 18:33] LABS: VENOUS BLOOD GAS BASE EXCESS -1.5 mmol/L (0.0-2.0); VENOUS BLOOD PH 7.35 (7.32-7.43)
[2016-07-13 18:34] LABS: ALB/GLOB RATIO 0.9 (1.1-1.8); ALKALINE PHOSPHATASE 94 U/L (38-133); ALT/SGPT 41 U/L (7-56); AST/SGOT 39 U/L (15-59); BILIRUBIN,TOTAL 0.9 mg/dL (0.2-1.3); BLOOD UREA NITROGEN 27 mg/dL (7-21); CALCIUM 9.6 mg/dL (8.4-10.5); CARBON DIOXIDE 24 mmol/L (21-33); CHLORIDE 101 mmol/L (98-107); GFR AFRICAN-AMERICAN > 60; GLUCOSE,RANDOM 104 mg/dL (70-110); SODIUM 136 mmol/L (132-148); TOTAL PROTEIN 8.1 g/dL (5.8-8.3)
[2016-07-13 19:34] LABS: ERYTHROCYTE SEDIMENTATION RATE 70 mm/hr (0.00-15.0)
[2016-07-13] MEDS: Morphine 4 mg/ml ISec IVP SCH (22:43)
[2016-07-14] MEDS: Morphine 4 mg/ml ISec IVP SCH ×2 (01:25→08:15)
[2016-07-14 03:07] VITALS: BMI 39.1
--- NOTE | 2016-07-14 04:54 | CP.PCM.PCO ---
Physician Communication Note - Physician Communication Note Physician Communication Note: chart reviewed. full consult to follow
[2016-07-14] MEDS: ceFAZolin 1 gm in NS 1 GM/100 ML BAG IVPB SCH ×3 (06:18→22:22)
--- NOTE | 2016-07-14 09:12 | RAD ---
PROCEDURE: Left Knee Radiographs. HISTORY: Pain. COMPARISON: None. FINDINGS: BONES: Normal. No fracture. JOINTS: Normal. No osteoarthritis. JOINT EFFUSION: None. OTHER FINDINGS: None. IMPRESSION: Normal radiographs of the left knee.
[2016-07-14] MEDS ORDERED: Bupivacaine 0.25% Inj(30mL) IJ ONE (10:07)
[2016-07-14] MEDS ORDERED: MethylPREDNISolone Depo 40 mg/ml Inj IM ONE (10:09)
[2016-07-14] MEDS ORDERED: Bupivacaine 0.5% Inj(30mL) IJ ONE (10:30)
--- NOTE | 2016-07-14 10:56 | HP ---
CHIEF COMPLAINT AND HISTORY OF PRESENT ILLNESS: This is a 56-year-old male who is coming into the hospital with complaints of left knee pain. The patient says he had gone home from the transitional care unit and started having knee pain. He had difficulty in ambulating. He had difficulty in standing on his leg. He has a right foot ulcer that is being treated with IV antibiotics as an outpatient. The patient says he had no fevers or chills, no dysuria or frequency, no nocturia. REVIEW OF SYSTEMS: All other review of symptoms is within normal limits except as mentioned. ALLERGIES: No known drug allergies. HOME MEDICATIONS: Aspirin, Coreg, Lasix, Neurontin, Effient, Ultram, Diovan, Zaroxolyn, oxycodone. PAST MEDICAL HISTORY: 1. Ulcer of the first metatarsal foot. 2. Right foot osteomyelitis. 3. Coronary artery disease. 4. Hypertension. 5. Peripheral arterial disease. 6. Dyslipidemia. 7. Neuropathy. SOCIAL HISTORY: He does not smoke. He is not . He has no children. He works at a warehouse. He stopped drinking in 03/2016. FAMILY HISTORY: Noncontributory. PHYSICAL EXAMINATION: VITAL SIGNS: The patient has a temperature of 98.3, pulse is 74, blood pressure 125/74, respirations 20, O2 saturation 98%. GENERAL: Patient lying in bed, flat, and in no apparent distress. HEAD AND NECK EXAM: Atraumatic, normocephalic. Conjunctivae are pink. Throat clear and mouth with moist mucosa. Oropharynx benign. EYES: Extraocular movements are intact. PERRLA. NECK: Supple. No JVD, thyromegaly, or adenopathy. No bruits. HEART: S1 and S2 regular rate and rhythm. No murmurs, rubs, or gallops. LUNGS: Clear to auscultation bilaterally. No wheezing rales or rhonchi appreciated. No retractions on exam. ABDOMEN: Soft, nontender, nondistended. Bowel sounds are positive in all quadrants. No rebound. No hepatosplenomegaly. EXTREMITIES: The right leg is covered with a dressing. left knee with mild swelling, decreased range of motion and difficulty in bending his left knee. NEURO: No facial asymmetry, tongue is midline, no uvula deviation. Power is 5 /5 in upper extremity and 5/5 in lower extremity. Sensation is normal in upper extremity and lower extremity. PSYCH: Awake, alert, oriented x3. No anxiety or depression symptoms. Good insight. Normal affect. : No CVA tenderness VASCULAR: 2+ pulses in carotid and pedal pulses. SKIN: No erythema or abnormal nodules noted. SPINE: Normal curvature. LYMPHADENOPATHY: No anterior cervical or posterior cervical adenopathy. No inguinal adenopathy. LABORATORY DATA: The patient's labs have been reviewed. White count of 6.4, hemoglobin 10.4. The patient has a creatinine of 1.3. ASSESSMENT: 1. Left knee effusion. 2. Dyslipidemia. 3. Right foot ulcer on IV antibiotics. 4. Coronary artery disease with stenting. 5. Peripheral arterial disease. 6. Hypertension. 7. Obesity with a body mass index of 39. PLAN: The patient is going to continue with his cefazolin. The patient is on carvedilol. He is on Effient for his stents. He is on Lipitor for dyslipidemia. He is on morphine for pain. The patient is on gabapentin for neuropathy. He is on Percocet for pain as well. He is also going to continue his aspirin. I have asked Dr. Mast to evaluate the patient. He is going to be followed by Dr. Morrell and Dr. Stevenson for his foot ulcer. He is on a heart healthy diet. He has lower extremity Dopplers that were done and a left knee x- ray. The official reading is pending. Hank Barroso MD cc: [id number] TT: 07/14/2016 10:48:24 tn 07/14/2016 10:06:35 ANNETTA
[2016-07-14] MEDS: Oxycodone/Acetaminophen 5/325 mg Tab PO PRN ×2 (11:12→18:16)
[2016-07-14 11:47] LABS: FLUID TYPE SYNOVIAL FLUID
[2016-07-14 12:07] LABS: SYNOVIAL FLUID LYMPHOCYTE 5.2 % (0-0); SYNOVIAL FLUID NEUTROPHIL 94.8 % (0-0); SYNOVIAL FLUID TOTAL COUNT 100 (0-0)
--- NOTE | 2016-07-14 13:30 | CON ---
DATE: 07/14/2016 REASON FOR CONSULTATION: Left knee swelling and pain. HISTORY OF PRESENT ILLNESS: This is a 56-year-old gentleman who presented with 1-2 day history of ac the [place] onset left knee pain and swelling. The patient says he denies any specific trauma. He says at o ne point he felt the left knee give out, but he did not fall. He says since then he has had a signif icant amount of pain and swelling about the left knee. He has pain with any range of motion of the k nee and has been unable to bear weight on it. PAST MEDICAL HISTORY: Significant for a fracture and an ulcer on his right lower extremity. He is c urrently in a cast for this. He does have a history of having osteomyelitis of the right foot. PHYSICAL EXAMINATION: GENERAL: This is a gentleman in no apparent distress. He is awake, alert and oriented x 3. EXTREMITIES: Evaluation of the left knee shows he does have an obvious effusion. His skin is intact . There is no gross malalignment or deformity. He has pain with any passive or active range of claude on of the knee. Exam is limited secondary to the pain. His thigh and calf is otherwise soft and non tender. He is grossly neurovascularly intact distally. X-RAY OF THE LEFT KNEE: AP showed no obvious fractures or dislocation. PROCEDURE NOTE: The left knee was prepped sterilely and under sterile conditions, the left knee was aspirated. Approximately 55 mL of serous fluid was removed. No gross purulence was appreciated. He tolerated the procedure well. Cultures x 2 were taken as well as fluid for Gram stain, cell count, and crystals. The left knee was then injected with approximately 40 mg of Depo-Medrol. He tolerated the procedure well. IMPRESSION: Left knee effusion and pain. PLAN: At this point, we are going to await the results of his gram stain and cultures and cell count . We will continue to follow up with him during this admission. Bert Mast MD cc: [id number] TT: 07/14/2016 13:29:18 Confirmation # [id number] Dictation # [id number] lucia
[2016-07-14] MEDS: Morphine 4 mg/ml ISec IVP PRN ×2 (14:13→22:35)
--- NOTE | 2016-07-14 14:14 | US ---
PROCEDURE: Left lower extremity venous US HISTORY: Leg pain and swelling. Evaluate for DVT. PHYSICIAN(S): J Luis Salazar MD. TECHNIQUE: Duplex sonography and color-flow Doppler with graded compression were used to evaluate the deep venous system of the left lower extremity. The exam is limited by body habitus and edema. The tibial veins are not well seen. FINDINGS: The visualized deep venous system of the left lower extremity is sonographically normal and compressible. Normal wave forms and augmentation are seen. There is no sonographic evidence for deep venous thrombosis in the visualized segments of the left lower extremity. IMPRESSION: 1. No sonographic evidence for deep venous thrombosis in the visualized segments of the left lower extremity. 2. Limited study.
--- NOTE | 2016-07-14 16:28 | CP.PCM.CON ---
History of Present Illness - History of Present Illness History of Present Illness: Infectious Disease Consultation: July 14, 2016 56 yo male with multiple hospitalizations at numerous facilities for his lower extremities. Patient with swelling and drainage from ulceration at the base of the third toe on the right foot. The patient denies fevers or chills. MRI was done recently showing possible abscess formation at the base of the third toe in the right foot and strong suspicion for osteomyelitis. The patient has severe swelling of the right foot. The patient was to go for PICC line placement and start on 6 week course of Ancef IV q8hrs for osteomyelitis and the possible abscess formation. During the past 3 days, he appears to be responding to the Ancef treatment. The patient is concerned about treatment after TRCU time as he does not have the money to support Home IV therapy after TRCU time is completed. For this hospitalization, he was discharged about 24 hours prior to this hospitalization. He developed weakness of the left leg and was unable to place weight on it. He decided to come back to [facility]. PMHx: Hypertension, Coronary Artery disease, Peripheral Vascular Disease, Obesity, ME history, Bilateral lower extremity neuropathy, history of osteomyelitis. PSHx: Bone biopsy Allergies: NKDA Social Hx: Ex-smoker, Ex-EtOH user. On disability now. Medications: Active Medications Aspirin (Ecotrin) 81 mg PO DAILY [facility] Last Admin: 07/14/16 10:36 Dose: 81 mg Atorvastatin Calcium (Lipitor) 80 mg PO DIN [facility] Carvedilol (Coreg) 6.25 mg PO BID [facility] Last Admin: 07/14/16 10:36 Dose: 6.25 mg Furosemide (Lasix) 40 mg PO DAILY [facility] Last Admin: 07/14/16 10:35 Dose: 40 mg Gabapentin (Neurontin) 300 mg PO TID [facility] PRN Reason: Protocol Last Admin: 07/14/16 14:13 Dose: 300 mg Cefazolin Sodium (Ancef 1gm In Ns) 1 gm in 100 mls @ 100 mls/hr IVPB Q8 [facility] Last Admin: 07/14/16 14:14 Dose: 100 mls/hr Morphine Sulfate (Morphine) 4 mg IVP Q6H PRN PRN Reason: Pain, severe (8-10) Last Admin: 07/14/16 14:13 Dose: 4 mg Oxycodone/Acetaminophen (Percocet 5/325 Mg Tab) 1 tab PO Q4 PRN PRN Reason: Pain, moderate (4-7) Stop: 07/17/16 00:01 Last Admin: 07/14/16 11:12 Dose: 1 tab Prasugrel (Effient) 10 mg PO DAILY [facility] Last Admin: 07/14/16 10:35 Dose: 10 mg Family Hx: None ROS: No fevers, chills, nausea, vomiting, diarrhea, headaches, dizziness, chest pain , abdominal pain, melena, hematuria, hematemesis, hematochezia, depression, anxiety Past Patient History - Infectious Disease Hx of Infectious Diseases: None - Tetanus Immunizations Tetanus Immunization: Unknown - Past Social History Smoking Status: Never Smoked - CARDIAC Hx Cardiac Disorders: Yes (ME, coronary stents) Hx Hypertension: Yes - PULMONARY Hx Respiratory Disorders: No - NEUROLOGICAL Hx Neurological Disorder: Yes (Neuropathy both lower legs) - HEENT Hx HEENT Problems: (WEARS RX GLASSES) - RENAL Hx Chronic Kidney Disease: No - ENDOCRINE/METABOLIC Hx Endocrine Disorders: No - HEMATOLOGICAL/ONCOLOGICAL Hx Blood Disorders: No Other/Comment: lymphedema to right leg - INTEGUMENTARY Hx Dermatological Problems: Yes (STASIS ULCER TO RIGHT BALL OF FOOT) - MUSCULOSKELETAL/RHEUMATOLOGICAL Hx Falls: No - GASTROINTESTINAL Hx Gastrointestinal Disorders: No - GENITOURINARY/GYNECOLOGICAL Hx Genitourinary Disorders: No - PSYCHIATRIC Hx Substance Use: No - SURGICAL HISTORY Hx Cardiac Catheterization: Yes Hx Coronary Stent: Yes (stents x3 10'14) Meds Allergies/Adverse Reactions: Allergies Allergy/AdvReac Type Severity Reaction Status Date / Time No Known Allergies Allergy Verified 07/06/16 22:16 - Medications Medications: Current Medications Aspirin (Ecotrin) 81 mg PO DAILY [facility] Last Admin: 07/14/16 10:36 Dose: 81 mg Atorvastatin Calcium (Lipitor) 80 mg PO DIN [facility] Carvedilol (Coreg) 6.25 mg PO BID [facility] Last Admin: 07/14/16 10:36 Dose: 6.25 mg Furosemide (Lasix) 40 mg PO DAILY [facility] Last Admin: 07/14/16 10:35 Dose: 40 mg Gabapentin (Neurontin) 300 mg PO TID [facility] PRN Reason: Protocol Last Admin: 07/14/16 14:13 Dose: 300 mg Cefazolin Sodium (Ancef 1gm In Ns) 1 gm in 100 mls @ 100 mls/hr IVPB Q8 [facility] Last Admin: 07/14/16 14:14 Dose: 100 mls/hr Morphine Sulfate (Morphine) 4 mg IVP Q6H PRN PRN Reason: Pain, severe (8-10) Last Admin: 07/14/16 14:13 Dose: 4 mg Oxycodone/Acetaminophen (Percocet 5/325 Mg Tab) 1 tab PO Q4 PRN PRN Reason: Pain, moderate (4-7) Stop: 07/17/16 00:01 Last Admin: 07/14/16 11:12 Dose: 1 tab Prasugrel (Effient) 10 mg PO DAILY [facility] Last Admin: 07/14/16 10:35 Dose: 10 mg Physical Exam - Constitutional Appears: Non-toxic, No Acute Distress, Chronically Ill - Head Exam Head Exam: ATRAUMATIC, NORMOCEPHALIC - Eye Exam Eye Exam: EOMI, PERRL Pupil Exam: NORMAL ACCOMODATION, PERRL - ENT Exam ENT Exam: Mucous Membranes Moist, Normal External Ear Exam, TM's Normal Bilaterally - Neck Exam Neck exam: Positive for: Normal Inspection - Respiratory Exam Respiratory Exam: Clear to Auscultation Bilateral, NORMAL BREATHING PATTERN. absent: Rales, Rhonchi, Wheezes - Cardiovascular Exam Cardiovascular Exam: REGULAR RHYTHM, RRR, +S1, +S2 - GI/Abdominal Exam GI & Abdominal Exam: Normal Bowel Sounds, Soft. absent: Distended, Tenderness - Extremities Exam Additional comments: From last hospitalization: Right leg with +2-3 edema of the entire right leg. 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 No odor. Probes to bone. Sloughing of the skin on both legs. Right lower leg in contact cast now. Eczema of the lower left leg. Left knee aspiration done by Dr. Cabrera today. The patient with mild swelling to the left lower leg. +1 edema to the left foot. Distal tip of the right foot 2nd toe with dry gangrene. - Neurological Exam Neurological exam: Alert, CN II-XII Intact, Oriented x3 Additional comments: decreased sensation of both lower extremities. Weak distal pulses. chronic venous stasis changes to both legs with right much worse than left. - Psychiatric Exam Psychiatric exam: Normal Affect, Normal Mood - Skin Skin Exam: Intact, Normal Color Results - Vital Signs Recent Vital Signs: Last Vital Signs Temp 98.3 F 07/14/16 06:00 Pulse 74 07/14/16 06:00 Resp 20 07/14/16 06:00 BP 125/74 07/14/16 10:36 Pulse Ox 98 07/14/16 06:00 - Labs Result Diagrams: 07/13/16 18:10 07/13/16 18:10 Labs: Laboratory Results - last 24 hr 07/14/16 11:40 Fluid Type Synovial fluid Synovial WBC 3412.0 H Synovial RBC 0.0 Synovial Neutrophils 94.8 H Synovial Lymphocytes 5.2 H Synov Monos/Macrophage 0 Synovial Fluid Comment TEST NOT PERFORMED Assessment & Plan - Assessment and Plan (Free Text) Assessment: 56 yo male now presenting with left leg weakness and inability to put weight on this leg. He is still receiving Ancef for osteomyelitis of the right foot. Crystal analysis is showing calcium pyrophosphate crystals. No signs of new infection. Will continue with Ancef IV for right foot osteomyelitis. Discussed with Dr. Barton. Supportive care. Thank you for allowing me to participate in the care of the patient, we will follow with you.
--- NOTE | 2016-07-14 17:07 | PN ---
DATE: 07/14/2016 A 56-year-old male seen at bedside for continued evaluation and management of gangrenous right foot u lcerations. The patient was admitted to [facility] for extreme pain in his left knee wit h effusion present. The patient states that Dr. Mast drained his knee and he is feeling much bet ter. He is currently undergoing IV antibiotic treatment for his right foot ulcerations in lieu of am putation for his osteomyelitis. PAST MEDICAL HISTORY: The patient's medical history is significant for morbid obesity, peripheral ar terial disease, peripheral neuropathy, dyslipidemia, essential hypertension and acute osteomyelitis o f the first metatarsal on the right foot. SOCIAL HISTORY: The patient was never . Admits to never using tobacco products. Denies illi cit drug use, but was a heavy drinker and stopped very recently. FAMILY HISTORY: Noncontributory. MEDICATIONS: All medications are noted in MAR. ALLERGIES: The patient has no known drug allergies. OBJECTIVE: The patient's cast is intact, which is bivalved. The cast is clean, dry and intact. Upo n removal of the cast, there is no strikethrough through the bandage. ASSESSMENT: Osteomyelitis of the right first metatarsal with subsequent ulceration. PLAN: The patient's dressing was examined and there is no strikethrough. We will leave the cast on and reinforce it with Coban. The patient was told to keep the cast clean, dry and intact. The patie nt will be seen and followed daily. Jamie Barton DPM cc: [id number] TT: 07/14/2016 17:07:04 Confirmation # [id number] Dictation # [id number] skip
[2016-07-15] MEDS: ceFAZolin 1 gm in NS 1 GM/100 ML BAG IVPB SCH ×3 (05:12→22:01)
[2016-07-15] MEDS: Morphine 4 mg/ml ISec IVP PRN ×3 (08:19→22:02)
--- NOTE | 2016-07-15 08:51 | PN ---
DATE: 07/15/2016 SUBJECTIVE: A 56-year-old male seen at bedside for continued evaluation and management of right foot ulcerations that are now wrapped in a total contact cast. The patient states that his left knee is feeling much better since the fluid was drained by Dr. Mast. VITAL SIGNS: Reveal temperature of 98.3, pulse rate of 66, blood pressure 141/78, and respiratory ra te of 20. LABORATORY FINDINGS: Reveal a white count of 6.4, hemoglobin of 10.4, hematocrit 32.3, platelet coun t of 248, and ESR of 70. OBJECTIVE: The patient's total contact cast on the right foot is intact. The cast has been bivalved and remains clean, dry and intact. Upon removal of the cast, there is noted to be no strikethrough through the bandage. ASSESSMENT: Osteomyelitis of the right first metatarsal with subsequent ulcerations. PLAN: The patient's dressing were examined and there was no strikethrough. I will leave the cast on reinforce it with Coban daily. The patient was told to keep the cast clean, dry and intact and elian in off of his feet as much as possible. The patient will be seen and followed daily. Jamie Barton DPM cc: [id number] TT: 07/15/2016 08:50:40 Confirmation # [id number] Dictation # [id number] lucia
--- NOTE | 2016-07-15 12:00 | PN ---
DATE: 07/15/2016 SUBJECTIVE: The patient is a 56-year-old, patient of Dr. Barroso, covering for him over the weekend . The patient states he was admitted for 10 days for his right leg ulcer and he found out that he wilkinson s fracture in his right foot. He had a cast placement and he went home on last Sunday. The next day when he got out of bed, he was unable to stand up. He fell and he supported himself by his left shoulder. That seems to be helping. He was unable to put pressure on the left foot or leg, so he ca me to Emergency Room. He had arthrocentesis done and awaiting for microbiology and cytology. PHYSICAL EXAMINATION: GENERAL: Today, he does not look in any distress. No nausea, vomiting, no diarrhea. Eating and dalia erating. VITAL SIGNS: He is afebrile, pulse 66, respirations 20, blood pressure 128/78. LUNGS: Bilateral good air flow. No rhonchi or crackle. HEART: S1, S2 audible. No murmur. ABDOMEN: Soft, obese, nontender, no rebound, no guarding. NEUROLOGIC: He is awake and alert, communicative. Nonambulatory. His right lower leg is in cast an d left knee he has difficulty bending and extending, high risk for DVT. LABORATORY EXAMINATION: He has a C-reactive protein of 15. Chemistry done on 07/13: Sodium 136, pota ssium 4.0, chloride 101, CO2 24, BUN 27, creatinine 1.3, blood sugar of 104. Synovial fluid Gram sta in is pending. ASSESSMENT: 1. Left knee effusion, status post arthrocentesis. 2. Right first metatarsal ulcer. 3. Right foot osteomyelitis. 4. Coronary artery disease. 5. Peripheral vascular disease. 6. Hypertension. 7. Morbid obesity. PLAN: Currently, the patient is on Ancef 1 gram q. 8. He is on Coreg. He is getting aspirin and Ef fient. He is on Lasix. Start him on DVT prophylaxis. He is on morphine as needed. Start him on Mi raLax. I will also order for uric acid test, although it is not a diagnosis, just to have some idea if effusion is secondary to gout and I will reevaluate this patient in a.m. Tyrel Kowalski MD cc: [phone] TT: 07/15/2016 11:58:59 Confirmation # [id number] Dictation # [id number] tn
[2016-07-15] MEDS: Enoxaparin 40 mg Syringe SC SCH (13:35)
--- NOTE | 2016-07-15 14:52 | CP.PCM.PN ---
Subjective - Date & Time of Evaluation Date of Evaluation: 07/15/16 Time of Evaluation: 14:30 - Subjective Subjective: Infectious Disease Follow Up: July 15, 2016 56 yo male with multiple hospitalizations at numerous facilities for his lower extremities. Patient with swelling and drainage from ulceration at the base of the third toe on the right foot. The patient denies fevers or chills. MRI was done recently showing possible abscess formation at the base of the third toe in the right foot and strong suspicion for osteomyelitis. The patient has severe swelling of the right foot. The patient was to go for PICC line placement and start on 6 week course of Ancef IV q8hrs for osteomyelitis and the possible abscess formation. During the past 3 days, he appears to be responding to the Ancef treatment. The patient is concerned about treatment after TRCU time as he does not have the money to support Home IV therapy after TRCU time is completed. For this hospitalization, he was discharged about 24 hours prior to admission for this hospitalization. He developed weakness of the left leg and was unable to place weight on it. He decided to come back to [facility] [place]. Dr. Mast aspirated the Left knee yesterday. Cultures pending. Objective - Vital Signs/Intake and Output Vital Signs (last 24 hours): Temp Pulse Resp BP Pulse Ox 97.8 F 66 20 128/78 98 07/15/16 11:22 07/15/16 11:22 07/15/16 11:22 07/15/16 11:22 07/15/16 11:22 - Medications Medications: Current Medications Aspirin (Ecotrin) 81 mg PO DAILY [facility] Last Admin: 07/15/16 10:02 Dose: 81 mg Atorvastatin Calcium (Lipitor) 80 mg PO DIN [facility] Last Admin: 07/14/16 18:11 Dose: 80 mg Carvedilol (Coreg) 6.25 mg PO BID [facility] Last Admin: 07/15/16 10:03 Dose: 6.25 mg Enoxaparin Sodium (Lovenox) 40 mg SC DAILY [facility] PRN Reason: Protocol Last Admin: 07/15/16 13:35 Dose: 40 mg Furosemide (Lasix) 40 mg PO DAILY [facility] Last Admin: 07/15/16 10:02 Dose: Not Given Gabapentin (Neurontin) 300 mg PO TID [facility] PRN Reason: Protocol Last Admin: 07/15/16 13:35 Dose: 300 mg Cefazolin Sodium (Ancef 1gm In Ns) 1 gm in 100 mls @ 100 mls/hr IVPB Q8 [facility] Last Admin: 07/15/16 13:34 Dose: 100 mls/hr Morphine Sulfate (Morphine) 4 mg IVP Q6H PRN PRN Reason: Pain, severe (8-10) Last Admin: 07/15/16 08:19 Dose: 4 mg Oxycodone/Acetaminophen (Percocet 5/325 Mg Tab) 1 tab PO Q4 PRN PRN Reason: Pain, moderate (4-7) Stop: 07/17/16 00:01 Last Admin: 07/14/16 18:16 Dose: 1 tab Polyethylene Glycol (Miralax) 17 gm PO DAILY [facility] Prasugrel (Effient) 10 mg PO DAILY [facility] Last Admin: 07/15/16 10:02 Dose: 10 mg - Constitutional Appears: Non-toxic, No Acute Distress, Chronically Ill - Head Exam Head Exam: ATRAUMATIC, NORMOCEPHALIC - Eye Exam Eye Exam: EOMI, PERRL Pupil Exam: NORMAL ACCOMODATION, PERRL - ENT Exam ENT Exam: Mucous Membranes Moist, Normal External Ear Exam, TM's Normal Bilaterally - Neck Exam Neck Exam: Full ROM, Normal Inspection - Respiratory Exam Respiratory Exam: Clear to Ausculation Bilateral, NORMAL BREATHING PATTERN. absent: Rales, Rhonchi, Wheezes - Cardiovascular Exam Cardiovascular Exam: REGULAR RHYTHM, RRR, +S1, +S2 - GI/Abdominal Exam GI & Abdominal Exam: Soft, Normal Bowel Sounds. absent: Distended, Tenderness - Extremities Exam Additional comments: From last hospitalization: Right leg with +2-3 edema of the entire right leg. 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 No odor. Probes to bone. Sloughing of the skin on both legs. Right lower leg in contact cast now. Eczema of the lower left leg. Left knee aspiration done by Dr. Cabrera yesterday. The patient with mild swelling to the left lower leg. +1 edema to the left foot. Distal tip of the right foot 2nd toe with dry gangrene. - Neurological Exam Neurological Exam: Alert, CN II-XII Intact, Oriented x3 Additional comments: decreased sensation of both lower extremities. Weak distal pulses. chronic venous stasis changes to both legs with right much worse than left. - Psychiatric Exam Psychiatric exam: Normal Affect, Normal Mood - Skin Skin Exam: Intact, Normal Color Assessment and Plan - Assessment and Plan (Free Text) Assessment: 56 yo male now presenting with left leg weakness and inability to put weight on this leg. He is still receiving Ancef for osteomyelitis of the right foot. Crystal analysis is showing calcium pyrophosphate crystals... possible pseudogout. No signs of new infection. Will continue with Ancef IV for right foot osteomyelitis. Discussed with Dr. Barton. Supportive care. Thank you for allowing me to participate in the care of the patient, we will follow with you.
[2016-07-16] MEDS: ceFAZolin 1 gm in NS 1 GM/100 ML BAG IVPB SCH ×3 (05:49→21:52)
[2016-07-16 06:38] LABS: ALB/GLOB RATIO 0.9 (1.1-1.8); ALKALINE PHOSPHATASE 72 U/L (38-133); ALT/SGPT 39 U/L (7-56); AST/SGOT 37 U/L (15-59); BILIRUBIN,TOTAL 0.6 mg/dL (0.2-1.3); BLOOD UREA NITROGEN 25 mg/dL (7-21); CALCIUM 9.3 mg/dL (8.4-10.5); CARBON DIOXIDE 28 mmol/L (21-33); CHLORIDE 104 mmol/L (98-107); GFR AFRICAN-AMERICAN > 60; GLUCOSE,RANDOM 93 mg/dL (70-110); POTASSIUM 4.1 mmol/L (3.6-5.0); SODIUM 140 mmol/L (132-148); TOTAL PROTEIN 7.3 g/dL (5.8-8.3); URIC ACID 8.2 mg/dL (3.5-8.5)
[2016-07-16 06:52] LABS: FREE T4 1.1 ng/dL (0.78-2.19)
[2016-07-16 07:06] LABS: THYROID STIMULATING HORMONE 1.37 mIU/mL (0.46-4.68)
--- NOTE | 2016-07-16 09:24 | CP.PCM.PN ---
Subjective - Date & Time of Evaluation Date of Evaluation: 07/16/16 Time of Evaluation: 09:19 - Subjective Subjective: Pt feels better. Says that he can move his leg more. Afebrile L knee: no erythema small effusion; no reaccumulation of fluid tolerating active ROM from 0 to 45 passive to 70 deg flexion calf soft, NT Gram stain: no organisms, few polys total cell count of fluid approx 3400 WBC with 90+% polys cultures no growth (prelim) calcium pyrophosphate crystals seen Will continue to follow cultures and physical exam WBAT LLE Objective - Vital Signs/Intake and Output Vital Signs (last 24 hours): Temp Pulse Resp BP Pulse Ox 98.1 F 62 20 128/79 96 07/15/16 16:21 07/15/16 17:57 07/15/16 16:21 07/15/16 17:57 07/15/16 16:21 Intake and Output: 07/16/16 07/16/16 06:59 18:59 Intake Total 300 Output Total 500 Balance -200 - Medications Medications: Current Medications Aspirin (Ecotrin) 81 mg PO DAILY [facility] Last Admin: 07/15/16 10:02 Dose: 81 mg Atorvastatin Calcium (Lipitor) 80 mg PO DIN [facility] Last Admin: 07/15/16 17:57 Dose: 80 mg Carvedilol (Coreg) 6.25 mg PO BID [facility] Last Admin: 07/15/16 17:57 Dose: 6.25 mg Enoxaparin Sodium (Lovenox) 40 mg SC DAILY [facility] PRN Reason: Protocol Last Admin: 07/15/16 13:35 Dose: 40 mg Furosemide (Lasix) 40 mg PO DAILY [facility] Last Admin: 07/15/16 10:02 Dose: Not Given Gabapentin (Neurontin) 300 mg PO TID [facility] PRN Reason: Protocol Last Admin: 07/15/16 17:58 Dose: 300 mg Cefazolin Sodium (Ancef 1gm In Ns) 1 gm in 100 mls @ 100 mls/hr IVPB Q8 [facility] Last Admin: 07/16/16 05:49 Dose: 100 mls/hr Morphine Sulfate (Morphine) 4 mg IVP Q6H PRN PRN Reason: Pain, severe (8-10) Last Admin: 07/15/16 22:02 Dose: 4 mg Oxycodone/Acetaminophen (Percocet 5/325 Mg Tab) 1 tab PO Q4 PRN PRN Reason: Pain, moderate (4-7) Stop: 07/17/16 00:01 Last Admin: 07/14/16 18:16 Dose: 1 tab Polyethylene Glycol (Miralax) 17 gm PO DAILY [facility] Prasugrel (Effient) 10 mg PO DAILY [facility] Last Admin: 07/15/16 10:02 Dose: 10 mg - Labs Labs: 07/16/16 06:00
[2016-07-16] MEDS ORDERED: POLYETHYLENE GLYCOL 3350 17 GM/Dose PACKET PO SCH (10:00)
[2016-07-16] MEDS: Enoxaparin 40 mg Syringe SC SCH (10:19)
[2016-07-16] MEDS: Morphine 4 mg/ml ISec IVP PRN ×3 (10:20→22:13)
--- NOTE | 2016-07-16 15:19 | PN ---
DATE: 07/16/2016 The patient is a 56-year-old, seen and examined, lying in bed. He seems to be comfortable. No chest pain, no shortness of breath. Eating and tolerating. PHYSICAL EXAMINATION: VITAL SIGNS: He is afebrile, pulse 50, respirations 18, blood pressure 153/95. LUNGS: Bilateral fair airflow, no rhonchi or crackle. HEART: S1, S2 audible. ABDOMEN: Soft, obese, nontender, no rebound, no guarding. NEUROLOGIC: He is awake and alert, communicative. EXTREMITIES: He has limited movement in the left knee because of left knee pain. Right lower extrem ity is in a cast. The summary of drain from the left knee negative for any growth. ASSESSMENT: 1. Intractable left knee pain, status post arthrocentesis and steroid injection. 2. Morbid obesity. 3. Right foot metatarsal ulcer. 4. Right foot osteomyelitis. 5. Coronary artery disease. 6. Severe peripheral vascular disease. 7. Hypertension. PLAN: Currently, patient is on Ancef 1 gram q. 8 hours. He is on Coreg, aspirin 81 daily. He is on Effient. He is on deep venous thrombosis prophylaxis. Complaining of constipation. Will add Colac e and he will be reevaluated in a.m. and make disposition plan. He is already getting IV antibiotic as outpatient. He has a peripherally inserted central catheter line in the left arm. Tyrel Kowalski MD cc: [id number] TT: 07/16/2016 15:18:09 Confirmation # [id number] Dictation # [id number]
--- NOTE | 2016-07-16 16:25 | CP.PCM.PN ---
Subjective - Date & Time of Evaluation Date of Evaluation: 07/16/16 Time of Evaluation: 16:07 - Subjective Subjective: Infectious Disease Follow Up: July 16, 2016 56 yo male with multiple hospitalizations at numerous facilities for his lower extremities. Patient with swelling and drainage from ulceration at the base of the third toe on the right foot. The patient denies fevers or chills. MRI was done recently showing possible abscess formation at the base of the third toe in the right foot and strong suspicion for osteomyelitis. The patient has severe swelling of the right foot. The patient was to go for PICC line placement and start on 6 week course of Ancef IV q8hrs for osteomyelitis and the possible abscess formation. During the past 3 days, he appears to be responding to the Ancef treatment. The patient is concerned about treatment after TRCU time as he does not have the money to support Home IV therapy after TRCU time is completed. For this hospitalization, he was discharged about 24 hours prior to admission for this hospitalization. He developed weakness of the left leg and was unable to place weight on it. He decided to come back to [facility]. Mast aspirated the Left knee. Cultures pending - but no growth to date. The patient with increased mobility of the left leg at the knee today. Objective - Vital Signs/Intake and Output Vital Signs (last 24 hours): Temp Pulse Resp BP Pulse Ox 97.8 F 58 L 18 153/95 H 97 07/16/16 11:09 07/16/16 11:09 07/16/16 11:09 07/16/16 11:09 07/16/16 11:09 Intake and Output: 07/16/16 07/16/16 06:59 18:59 Intake Total 300 540 Output Total 500 1200 Balance -200 -660 - Medications Medications: Current Medications Aspirin (Ecotrin) 81 mg PO DAILY [facility] Last Admin: 07/16/16 10:19 Dose: 81 mg Atorvastatin Calcium (Lipitor) 80 mg PO DIN [facility] Last Admin: 07/15/16 17:57 Dose: 80 mg Carvedilol (Coreg) 6.25 mg PO BID [facility] Last Admin: 07/16/16 10:19 Dose: 6.25 mg Docusate Sodium (Colace) 100 mg PO BID [facility] Enoxaparin Sodium (Lovenox) 40 mg SC DAILY [facility] PRN Reason: Protocol Last Admin: 07/16/16 10:19 Dose: 40 mg Furosemide (Lasix) 40 mg PO DAILY [facility] Last Admin: 07/16/16 10:19 Dose: 40 mg Gabapentin (Neurontin) 300 mg PO TID [facility] PRN Reason: Protocol Last Admin: 07/16/16 13:39 Dose: 300 mg Cefazolin Sodium (Ancef 1gm In Ns) 1 gm in 100 mls @ 100 mls/hr IVPB Q8 [facility] Last Admin: 07/16/16 13:39 Dose: 100 mls/hr Morphine Sulfate (Morphine) 4 mg IVP Q6H PRN PRN Reason: Pain, severe (8-10) Last Admin: 07/16/16 15:20 Dose: 4 mg Oxycodone/Acetaminophen (Percocet 5/325 Mg Tab) 1 tab PO Q4 PRN PRN Reason: Pain, moderate (4-7) Stop: 07/17/16 00:01 Last Admin: 07/14/16 18:16 Dose: 1 tab Polyethylene Glycol (Miralax) 17 gm PO DAILY [facility] Last Admin: 07/16/16 10:20 Dose: 17 gm Prasugrel (Effient) 10 mg PO DAILY [facility] Last Admin: 07/16/16 10:19 Dose: 10 mg - Labs Labs: 07/16/16 06:00 - Constitutional Appears: Non-toxic, No Acute Distress, Chronically Ill - Head Exam Head Exam: ATRAUMATIC, NORMOCEPHALIC - Eye Exam Eye Exam: EOMI, PERRL Pupil Exam: NORMAL ACCOMODATION, PERRL - ENT Exam ENT Exam: Mucous Membranes Moist, Normal External Ear Exam, TM's Normal Bilaterally - Neck Exam Neck Exam: Full ROM, Normal Inspection - Respiratory Exam Respiratory Exam: Clear to Ausculation Bilateral, NORMAL BREATHING PATTERN. absent: Rales, Rhonchi, Wheezes - Cardiovascular Exam Cardiovascular Exam: REGULAR RHYTHM, RRR, +S1, +S2 - GI/Abdominal Exam GI & Abdominal Exam: Soft, Normal Bowel Sounds. absent: Distended, Tenderness - Extremities Exam Additional comments: From last hospitalization: Right leg with +2-3 edema of the entire right leg. 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 No odor. Probes to bone. Sloughing of the skin on both legs. Right lower leg in contact cast now. Eczema of the lower left leg. Left knee aspiration done by Dr. Cabrera. The patient with mild swelling to the left lower leg. +1 edema to the left foot. Distal tip of the right foot 2nd toe with dry gangrene. - Neurological Exam Neurological Exam: Alert, Awake, Oriented x3 Additional comments: decreased sensation of both lower extremities. Weak distal pulses. chronic venous stasis changes to both legs with right much worse than left. - Psychiatric Exam Psychiatric exam: Normal Affect, Normal Mood - Skin Skin Exam: Intact, Normal Color Assessment and Plan - Assessment and Plan (Free Text) Assessment: 56 yo male now presenting with left leg weakness and inability to put weight on this leg. He is still receiving Ancef for osteomyelitis of the right foot. Crystal analysis is showing calcium pyrophosphate crystals... possible pseudogout. No signs of new infection on physical exam. Will continue with Ancef IV for right foot osteomyelitis. Left knee aspirate cultures showing no new growth so far. My plan is to continue with Ancef alone at this point. Noted synovial fluid cell counts and predominance of WBC there. Supportive care. Monitor inflammatory markers. Thank you for allowing me to participate in the care of the patient, we will follow with you.
[2016-07-17] MEDS: ceFAZolin 1 gm in NS 1 GM/100 ML BAG IVPB SCH ×3 (05:55→21:36)
[2016-07-17] MEDS: Morphine 4 mg/ml ISec IVP PRN (08:37)
[2016-07-17] MEDS: POLYETHYLENE GLYCOL 3350 17 GM/Dose PACKET PO SCH ×2 (09:40→17:43)
[2016-07-17] MEDS: Enoxaparin 40 mg Syringe SC SCH (09:40)
--- NOTE | 2016-07-17 11:14 | PN ---
DATE: 07/17/2016 DATE: 07/17/2016 SUBJECTIVE: The patient has no complaints of any chest pain, no shortness of breath, no headaches. He says he has difficulty in ambulating because of the knee pain. He is waiting to go to either [facility] care unit or subacute rehab. PHYSICAL EXAMINATION: VITAL SIGNS: Temperature is 98, pulse of 58. Blood pressure is 153/95, respirations 19. GENERAL: The patient IS comfortable, in no acute distress. HEENT: Anicteric sclerae. Moist mucosa. NECK: No JVD or adenopathy. CARDIAC: S1/S2. No murmurs. No rubs. Regular. RESPIRATORY: Clear to auscultation bilaterally. No wheezes, rales, or rhonchi. Good air entry. ABDOMEN: Bowel sounds are positive, soft, nontender, and nondistended. EXTREMITIES: No edema. Has 1+ pulses. LABS: Creatinine is 1.0. ASSESSMENT: 1. Left knee effusion secondary to pseudogout attack, acute. 2. Obesity with a body mass index of 39. 3. Right foot ulcer/osteomyelitis. 4. Coronary artery disease. 5. Peripheral arterial disease. 6. Hypertension. PLAN: The patient is currently comfortable. He is being followed by infectious disease for his IV a ntibiotics. He is on aspirin. He is going to continue on Effient for his coronary artery disease. He is on Lasix daily. He is on Lipitor for dyslipidemia. He is on Lovenox for DVT prophylaxis. The patient is on Neurontin for neuropathy. He has synovial fluid cultures that are negative. Hank Barroso MD cc: [id number] TT: 07/17/2016 11:13:14 Confirmation # [id number] Dictation # [id number]
--- NOTE | 2016-07-17 16:08 | CP.PCM.PN ---
Subjective - Date & Time of Evaluation Date of Evaluation: 07/17/16 Time of Evaluation: 16:03 - Subjective Subjective: Infectious Disease Follow Up: July 17, 2016 56 yo male with multiple hospitalizations at numerous facilities for his lower extremities. Patient with swelling and drainage from ulceration at the base of the third toe on the right foot. The patient denies fevers or chills. MRI was done recently showing possible abscess formation at the base of the third toe in the right foot and strong suspicion for osteomyelitis. The patient has severe swelling of the right foot. The patient was to go for PICC line placement and start on 6 week course of Ancef IV q8hrs for osteomyelitis and the possible abscess formation. During the past 3 days, he appears to be responding to the Ancef treatment. The patient is concerned about treatment after TRCU time as he does not have the money to support Home IV therapy after TRCU time is completed. For this hospitalization, he was discharged about 24 hours prior to admission for this hospitalization. He developed weakness of the left leg and was unable to place weight on it. He decided to come back to [facility] [place]. Dr. Mast aspirated the Left knee. Cultures pending - but no growth to date. The patient with increased mobility of the left leg at the knee today. Cultures from knee aspirate are negative to date. Objective - Vital Signs/Intake and Output Vital Signs (last 24 hours): Temp Pulse Resp BP Pulse Ox 97.6 F 64 18 164/98 H 96 07/17/16 06:00 07/17/16 06:00 07/17/16 06:00 07/17/16 09:41 07/17/16 06:00 Intake and Output: 07/17/16 07/17/16 06:59 18:59 Intake Total 300 Output Total 1300 Balance -1000 - Medications Medications: Current Medications Aspirin (Ecotrin) 81 mg PO DAILY [facility] Last Admin: 07/17/16 09:41 Dose: 81 mg Atorvastatin Calcium (Lipitor) 80 mg PO DIN [facility] Last Admin: 07/16/16 17:15 Dose: 80 mg Carvedilol (Coreg) 6.25 mg PO BID [facility] Last Admin: 07/17/16 09:40 Dose: 6.25 mg Docusate Sodium (Colace) 100 mg PO BID [facility] Last Admin: 07/17/16 09:41 Dose: 100 mg Enoxaparin Sodium (Lovenox) 40 mg SC DAILY [facility] PRN Reason: Protocol Last Admin: 07/17/16 09:40 Dose: 40 mg Furosemide (Lasix) 40 mg PO DAILY [facility] Last Admin: 07/17/16 09:41 Dose: 40 mg Gabapentin (Neurontin) 300 mg PO TID [facility] PRN Reason: Protocol Last Admin: 07/17/16 13:51 Dose: 300 mg Cefazolin Sodium (Ancef 1gm In Ns) 1 gm in 100 mls @ 100 mls/hr IVPB Q8 [facility] Last Admin: 07/17/16 13:51 Dose: 100 mls/hr Morphine Sulfate (Morphine) 4 mg IVP Q6H PRN PRN Reason: Pain, severe (8-10) Last Admin: 07/17/16 08:37 Dose: 4 mg Polyethylene Glycol (Miralax) 17 gm PO BID [facility] Last Admin: 07/17/16 09:40 Dose: 17 gm Prasugrel (Effient) 10 mg PO DAILY [facility] Last Admin: 07/17/16 09:41 Dose: 10 mg - Labs Labs: 07/16/16 06:00 - Constitutional Appears: Non-toxic, No Acute Distress, Chronically Ill - Head Exam Head Exam: ATRAUMATIC, NORMOCEPHALIC - Eye Exam Eye Exam: EOMI, PERRL Pupil Exam: NORMAL ACCOMODATION, PERRL - ENT Exam ENT Exam: Mucous Membranes Moist, Normal External Ear Exam, TM's Normal Bilaterally - Neck Exam Neck Exam: Full ROM, Normal Inspection - Respiratory Exam Respiratory Exam: Clear to Ausculation Bilateral, NORMAL BREATHING PATTERN. absent: Rales, Rhonchi, Wheezes - Cardiovascular Exam Cardiovascular Exam: REGULAR RHYTHM, RRR, +S1, +S2 - GI/Abdominal Exam GI & Abdominal Exam: Soft, Normal Bowel Sounds. absent: Distended, Tenderness - Extremities Exam Additional comments: Right lower leg in contact cast now. Leg is still edematous. Eczema of the lower left leg. Left knee aspiration done by Dr. Cabrera. The patient with mild swelling to the left lower leg. +1 edema to the left foot. Distal tip of the right foot 2nd toe with dry gangrene. - Neurological Exam Neurological Exam: Alert, Awake, Oriented x3 Additional comments: decreased sensation of both lower extremities. Weak distal pulses. chronic venous stasis changes to both legs with right much worse than left. - Psychiatric Exam Psychiatric exam: Normal Affect, Normal Mood - Skin Skin Exam: Intact, Normal Color Assessment and Plan - Assessment and Plan (Free Text) Assessment: 56 yo male now presenting with left leg weakness and inability to put weight on this leg. He is still receiving Ancef for osteomyelitis of the right foot. Crystal analysis is showing calcium pyrophosphate crystals... possible pseudogout. No signs of new infection on physical exam. Will continue with Ancef IV for right foot osteomyelitis. Left knee aspirate cultures showing no new growth so far. My plan is to continue with Ancef alone at this point to complete 6 week course. Noted synovial fluid cell counts and predominance of WBC there. Left knee aspirate cultures are negative. Supportive care. Monitor inflammatory markers. Thank you for allowing me to participate in the care of the patient, we will follow with you.
[2016-07-17 18:28] VITALS: RESP 19; O2SAT 95
--- NOTE | 2016-07-17 18:34 | PN ---
DATE: 07/17/2016 This is a 56-year-old male seen for ulceration to the plantar aspect of his third metatarsal on his r ight foot with a fracture of metatarsal. The patient had a sinus tract that went right down to the b one, thus the patient is being treated with 4 weeks of IV antibiotics for osteomyelitis. The patient is seen at bedside. His total contact cast, which was applied on , was clean, dry and intac t. We did remove the casting. We took a look at the wound. The wound is clean. It is smaller, chasity suring 1.8 x 0.6 x 0.3 cm. There was no cellulitis. There is no longer a sinus tract into the bone. There is no purulence and the tissue is 100% granulation tissue, no necrosis, malodor or any signs of infection noted. VITAL SIGNS: Were reviewed: Temperature is 97.6, his blood pressure is 164/98. LABORATORY DATA: Show a white blood cell count of 6.4, the H and H is 10.4 and 32.3 and his platelet s are 248. ESR was 70 upon admission and it is now 65. The patient's chemistry shows BUN and creati nine of 25 and 1. His C-reactive protein is greater than 15. The patient had his left knee aspirate d by Dr. Mast. There were synovial white blood cell counts, which was high as well as neutrophil s and lymphocytes. Microbiology's fluid culture is preliminary. There were no organisms after 3 day s from the left knee. The patient's wound was dressed with Maxorb and a foam. He was placed back into his total contact ca st. The cast will be changed by podiatry on Sunday again and ID's note is reviewed and noted. The plan of care at this time is to continue with the [facility] for a 6-week course, which patient is rec eiving for his right foot osteomyelitis and total contact casting. If patient is discharged between now and Sunday, he will be seen at the wound care center for dressing change and total contact bebeto nge. Shameka Morrell DPM cc: [id number] TT: 07/17/2016 18:34:23 Confirmation # [id number] Dictation # [id number] dn
[2016-07-18] MEDS: ceFAZolin 1 gm in NS 1 GM/100 ML BAG IVPB SCH ×2 (05:28→13:51)
[2016-07-18 08:23] VITALS: BP 141/88; PULSE 59; TEMP 98.4
--- NOTE | 2016-07-18 09:14 | DS ---
SUBJECTIVE: The patient has no complaints of any chest pain or shortness of breath. He had initiall y come into the hospital because he had difficulty in ambulating. He had developed pseudogout in his left knee joint. His knee was drained by Dr. Mast. He says his knee is feeling better. He is getting IV antibiotics for right foot ulcer and osteomyelitis. The patient was seen by Dr. Graham RASMUSSEN, delfino Morrell from podiatry. The patient was evaluated by physical therapy and it was felt that he may benefit from gait training in the transitional care unit. PHYSICAL EXAMINATION: VITAL SIGNS: Temperature is 98.5, pulse of 62, blood pressure is 104/54, respirations 19, O2 saturat ion 95%. GENERAL: The patient comfortable, in no acute distress. HEENT: Anicteric sclerae. Moist mucosa. NECK: No JVD or adenopathy. CARDIAC: S1/S2. No murmurs. No rubs. Regular. RESPIRATORY: Clear to auscultation bilaterally. No wheezes, rales, or rhonchi. Good air entry. ABDOMEN: Bowel sounds are positive, soft, nontender, and nondistended. EXTREMITIES: No edema. Has 1+ pulses. ASSESSMENT: 1. Left knee pseudogout acute. 2. Obesity with a body mass index of 39. 3. Right foot ulcer/osteomyelitis. 4. Coronary artery disease. 5. Peripheral arterial disease. 6. Hypertension. PLAN: The patient is currently comfortable, is on cefazolin for antibiotics. He is going to be on C olace for constipation. The patient is going to be on his aspirin and Effient for his coronary disea se with stents. He is on Lipitor for dyslipidemia. He is on Lovenox for DVT prophylaxis. He is on Neurontin for his neuropathy. He is on a heart healthy diet. CONDITION: Stable. ACTIVITIES: Increase as tolerated. Hank Barroso MD cc: [id number] TT: 07/18/2016 09:14:40 pa
[2016-07-18] MEDS: Enoxaparin 40 mg Syringe SC SCH (10:04)
[2016-07-18] MEDS: POLYETHYLENE GLYCOL 3350 17 GM/Dose PACKET PO SCH (10:05)
--- NOTE | 2016-07-18 13:46 | CP.PCM.PN ---
<Elizabeth Brown - Last Filed: 07/18/16 13:42> Subjective - Date & Time of Evaluation Date of Evaluation: 07/18/16 Time of Evaluation: 13:42 - Subjective Subjective: 56 year old male was seen resting comfortably at bedside regarding ulceration to the plantar aspect of his 3rd metatarsal on the right foot with a fracture of the metatarsal. Patient is in no acute distress, AAOx3. He states that today he is going to TCU for further rehab. He denies any pain to his right lower extremity. Denies n/v/f/c/sob/cp. Objective - Vital Signs/Intake and Output Vital Signs (last 24 hours): Temp Pulse Resp BP Pulse Ox 98.4 F 59 L 19 141/88 95 07/18/16 06:00 07/18/16 10:04 07/18/16 06:00 07/18/16 10:04 07/18/16 06:00 Intake and Output: 07/18/16 07/18/16 06:59 18:59 Intake Total 600 Balance 600 - Medications Medications: Current Medications Aspirin (Ecotrin) 81 mg PO DAILY [facility] Last Admin: 07/18/16 10:03 Dose: 81 mg Atorvastatin Calcium (Lipitor) 80 mg PO DIN [facility] Last Admin: 07/17/16 17:41 Dose: 80 mg Carvedilol (Coreg) 6.25 mg PO BID [facility] Last Admin: 07/18/16 10:04 Dose: 6.25 mg Docusate Sodium (Colace) 100 mg PO BID [facility] Last Admin: 07/18/16 10:03 Dose: 100 mg Enoxaparin Sodium (Lovenox) 40 mg SC DAILY [facility] PRN Reason: Protocol Last Admin: 07/18/16 10:04 Dose: 40 mg Furosemide (Lasix) 40 mg PO DAILY [facility] Last Admin: 07/18/16 10:03 Dose: 40 mg Gabapentin (Neurontin) 300 mg PO TID [facility] PRN Reason: Protocol Last Admin: 07/18/16 10:03 Dose: 300 mg Cefazolin Sodium (Ancef 1gm In Ns) 1 gm in 100 mls @ 100 mls/hr IVPB Q8 [facility] Last Admin: 07/18/16 05:28 Dose: 100 mls/hr Morphine Sulfate (Morphine) 4 mg IVP Q6H PRN PRN Reason: Pain, severe (8-10) Last Admin: 07/17/16 08:37 Dose: 4 mg Polyethylene Glycol (Miralax) 17 gm PO BID [facility] Last Admin: 07/18/16 10:05 Dose: 17 gm Prasugrel (Effient) 10 mg PO DAILY [facility] Last Admin: 07/18/16 10:03 Dose: 10 mg - Labs Labs: 07/16/16 06:00 - Constitutional Appears: Well, Non-toxic, No Acute Distress - Extremities Exam Additional comments: Cast wrapped with coban, and is clean, dry, intact to right lower extremity - Neurological Exam Neurological Exam: Alert, Awake, Oriented x3 - Psychiatric Exam Psychiatric exam: Normal Affect, Normal Mood Assessment and Plan - Assessment and Plan (Free Text) Assessment: 56 year old male with right foot ulceration sub 3rd metatarsal with OM Plan: patient evaluated and chart reviewed discussed in detail with attending Dr. Barton labs and vitals reviewed; afebrile continue IV abx as per ID total contact cast remains intact, will change tomorrow patient to follow up in wound care center upon discharge <Jamie Barton - Last Filed: 07/21/16 11:29> Objective - Vital Signs/Intake and Output Vital Signs (last 24 hours): Temp Pulse Resp BP Pulse Ox 98.4 F 59 L 19 141/88 95 07/18/16 06:00 07/18/16 10:04 07/18/16 06:00 07/18/16 10:04 07/18/16 06:00 - Labs Labs: 07/16/16 06:00 Attending/Attestation - Attestation I have personally seen and examined this patient.: Yes I have fully participated in the care of the patient.: Yes I have reviewed all pertinent clinical information, including history, physical exam and plan: Yes
--- NOTE | 2016-07-18 14:55 | CP.PCM.PN ---
Subjective - Date & Time of Evaluation Date of Evaluation: 07/18/16 Time of Evaluation: 14:44 - Subjective Subjective: Infectious Disease Follow Up: July 18, 2016 56 yo male with multiple hospitalizations at numerous facilities for his lower extremities. Patient with swelling and drainage from ulceration at the base of the third toe on the right foot. The patient denies fevers or chills. MRI was done recently showing possible abscess formation at the base of the third toe in the right foot and strong suspicion for osteomyelitis. The patient has severe swelling of the right foot. The patient was to go for PICC line placement and start on 6 week course of Ancef IV q8hrs for osteomyelitis and the possible abscess formation. During the past 3 days, he appears to be responding to the Ancef treatment. The patient is concerned about treatment after TRCU time as he does not have the money to support Home IV therapy after TRCU time is completed. For this hospitalization, he was discharged about 24 hours prior to admission for this hospitalization. He developed weakness of the left leg and was unable to place weight on it. He decided to come back [place] [facility]. Mast aspirated the Left knee. Cultures no growth. The patient with increased mobility of the left leg at the knee today. Cultures from knee aspirate are negative. Objective - Vital Signs/Intake and Output Vital Signs (last 24 hours): Temp Pulse Resp BP Pulse Ox 98.4 F 59 L 19 141/88 95 07/18/16 06:00 07/18/16 10:04 07/18/16 06:00 07/18/16 10:04 07/18/16 06:00 Intake and Output: 07/18/16 07/18/16 06:59 18:59 Intake Total 600 Balance 600 - Medications Medications: Current Medications Aspirin (Ecotrin) 81 mg PO DAILY [facility] Last Admin: 07/18/16 10:03 Dose: 81 mg Atorvastatin Calcium (Lipitor) 80 mg PO DIN [facility] Last Admin: 07/17/16 17:41 Dose: 80 mg Carvedilol (Coreg) 6.25 mg PO BID [facility] Last Admin: 07/18/16 10:04 Dose: 6.25 mg Docusate Sodium (Colace) 100 mg PO BID [facility] Last Admin: 07/18/16 10:03 Dose: 100 mg Enoxaparin Sodium (Lovenox) 40 mg SC DAILY [facility] PRN Reason: Protocol Last Admin: 07/18/16 10:04 Dose: 40 mg Furosemide (Lasix) 40 mg PO DAILY [facility] Last Admin: 07/18/16 10:03 Dose: 40 mg Gabapentin (Neurontin) 300 mg PO TID [facility] PRN Reason: Protocol Last Admin: 07/18/16 13:50 Dose: 300 mg Cefazolin Sodium (Ancef 1gm In Ns) 1 gm in 100 mls @ 100 mls/hr IVPB Q8 [facility] Last Admin: 07/18/16 13:51 Dose: 100 mls/hr Morphine Sulfate (Morphine) 4 mg IVP Q6H PRN PRN Reason: Pain, severe (8-10) Last Admin: 07/17/16 08:37 Dose: 4 mg Polyethylene Glycol (Miralax) 17 gm PO BID [facility] Last Admin: 07/18/16 10:05 Dose: 17 gm Prasugrel (Effient) 10 mg PO DAILY [facility] Last Admin: 07/18/16 10:03 Dose: 10 mg - Labs Labs: 07/16/16 06:00 - Constitutional Appears: Non-toxic, No Acute Distress, Chronically Ill - Head Exam Head Exam: ATRAUMATIC, NORMOCEPHALIC - Eye Exam Eye Exam: EOMI, PERRL Pupil Exam: NORMAL ACCOMODATION, PERRL - ENT Exam ENT Exam: Mucous Membranes Moist, Normal External Ear Exam, TM's Normal Bilaterally - Neck Exam Neck Exam: Full ROM, Normal Inspection - Respiratory Exam Respiratory Exam: Clear to Ausculation Bilateral, NORMAL BREATHING PATTERN. absent: Rales, Rhonchi, Wheezes - Cardiovascular Exam Cardiovascular Exam: REGULAR RHYTHM, RRR, +S1, +S2 - GI/Abdominal Exam GI & Abdominal Exam: Soft, Normal Bowel Sounds. absent: Distended, Tenderness - Extremities Exam Additional comments: Right lower leg in contact cast now. Leg is still edematous. Eczema of the lower left leg. Left knee aspiration done by Dr. Cabrera. The patient with mild swelling to the left lower leg. +1 edema to the left foot. Distal tip of the right foot 2nd toe with dry gangrene. - Neurological Exam Neurological Exam: Alert, Awake, CN II-XII Intact, Oriented x3 Additional comments: decreased sensation of both lower extremities. Weak distal pulses. chronic venous stasis changes to both legs with right much worse than left. - Psychiatric Exam Psychiatric exam: Normal Affect, Normal Mood - Skin Skin Exam: Intact, Normal Color Assessment and Plan - Assessment and Plan (Free Text) Assessment: 56 yo male now presenting with left leg weakness and inability to put weight on this leg. He is still receiving Ancef for osteomyelitis of the right foot. Crystal analysis is showing calcium pyrophosphate crystals... possible pseudogout. No signs of new infection on physical exam. Will continue with Ancef IV for right foot osteomyelitis. Left knee aspirate cultures showing no new growth so far. My plan is to continue with Ancef alone at this point to complete 6 week course. Noted synovial fluid cell counts and predominance of WBC there. Left knee aspirate cultures are negative. Supportive care. Monitor inflammatory markers. For TRCU. Thank you for allowing me to participate in the care of the patient, we will follow with you.
== END 2016-07-18 14:59 | DRG 540 ==
LOC: ED 17:17 → ERH 20:08 → 3RSO 23:46 → OBSVTOIN 07-15 14:06
PROVIDERS: ADMIT Internal Medicine Nephrology; ATTEND Internal Medicine Nephrology
PROC: 0S9D3ZZ Drainage of Left Knee Joint, Percutaneous Approach (ICD-10-PCS; principal; 2016-07-14)
DX: M86.171 Other acute osteomyelitis, right ankle and foot (principal); I96 Gangrene, not elsewhere classified; E66.01 Morbid (severe) obesity due to excess calories; G62.9 Polyneuropathy, unspecified; L02.611 Cutaneous abscess of right foot; M11.20 Other chondrocalcinosis, unspecified site; I83.015 Varicose veins of right lower extremity with ulcer other part of foot; L97.519 Non-pressure chronic ulcer of other part of right foot with unspecified severity; I10 Essential (primary) hypertension; Z68.39 Body mass index [BMI] 39.0-39.9, adult; E78.5 Hyperlipidemia, unspecified; I25.10 Atherosclerotic heart disease of native coronary artery without angina pectoris; I25.2 Old myocardial infarction; I73.9 Peripheral vascular disease, unspecified; S92.331A Displaced fracture of third metatarsal bone, right foot, initial encounter for closed fracture; Z79.82 Long term (current) use of aspirin; Z79.899 Other long term (current) drug therapy; Z87.891 Personal history of nicotine dependence; Z95.5 Presence of coronary angioplasty implant and graft; M25.462 Effusion, left knee; R40.2412 Glasgow coma scale score 13-15, at arrival to emergency department

== ENCOUNTER 2016-07-18 14:59 | Inpatient (IN) | payer BC ==
[2016-07-18] MEDS: POLYETHYLENE GLYCOL 3350 17 GM/Dose PACKET PO SCH (18:13)
[2016-07-18 18:59] VITALS: BMI 39.8
[2016-07-18] MEDS ORDERED: Pneumococcal 23-Valent Vaccine IM ONE (18:59)
[2016-07-18] MEDS: ceFAZolin 1 gm in NS 1 GM/100 ML BAG IVPB SCH (21:21)
[2016-07-19] MEDS: ceFAZolin 1 gm in NS 1 GM/100 ML BAG IVPB SCH ×3 (06:23→21:35)
--- NOTE | 2016-07-19 07:28 | PN ---
DATE: 07/19/2016 SUBJECTIVE: The patient is a 56-year-old male who came into the hospital because of left knee pseudo gout. The patient is now in the transitional care unit for rehab. He was seen by orthopedics and wilkinson d drainage of his left knee effusion. The patient has no complaints of any chest pain. No shortness of breath, no headaches or dizziness. Initial H and P was reviewed and I agree with. PHYSICAL EXAMINATION: VITAL SIGNS: Temperature is 99.7, pulse 90, blood pressure is 117/66, respirations 19. GENERAL: The patient comfortable, in no acute distress. HEENT: Anicteric sclerae. Moist mucosa. NECK: No JVD or adenopathy. CARDIAC: S1/S2. No murmurs. No rubs. Regular. RESPIRATORY: Clear to auscultation bilaterally. No wheezes, rales, or rhonchi. Good air entry. ABDOMEN: Bowel sounds are positive, soft, nontender, and nondistended. EXTREMITIES: No edema. Has 1+ pulses. ASSESSMENT: 1. Left knee pseudogout, acute, improved. 2. Obesity with a body mass index of 39. 3. Right foot ulcer/osteomyelitis. 4. Coronary artery disease. 5. Peripheral arterial disease. 6. Hypertension. PLAN: The patient is currently comfortable. He is getting his IV antibiotics through his PICC line. He is being followed by Dr. Stevenson from infectious disease and Dr. Morerll from podiatry. He is receiv ing Colace for constipation. There was an issue with the PICC line yesterday and alteplase at 2 mg I V was placed in the PICC line. If it does not improve, we will get Dr. J Luis Salazar to evaluate [facility]. The patient is on Coreg. He is going to continue with aspirin. He is on Lovenox for DVT prophy laxis. He is on morphine for pain. He is on Neurontin for neuropathy. Hank Barroso MD cc: [id number] TT: 07/19/2016 07:27:51 Confirmation # [id number] Dictation # [id number] tn
[2016-07-19] MEDS: POLYETHYLENE GLYCOL 3350 17 GM/Dose PACKET PO SCH ×2 (09:38→17:35)
--- NOTE | 2016-07-19 10:04 | CP.PCM.PN ---
Subjective - Date & Time of Evaluation Date of Evaluation: 07/19/16 Time of Evaluation: 10:02 - Subjective Subjective: Pt feeling much better. Pt ambulating with walker. Denies significant pain. Afebrile L knee: minimal swelling, no erythema or cellulitis no induration non tender to palpation active ROM 0-95 degrees flexion calf soft knee aspirate culutes negative (final) Continue current care WBAT Objective - Vital Signs/Intake and Output Vital Signs (last 24 hours): Temp Pulse Resp BP Pulse Ox 98.3 F 59 L 18 127/70 96 07/19/16 05:57 07/19/16 08:06 07/19/16 05:57 07/19/16 09:36 07/19/16 05:57 Intake and Output: 07/19/16 07/19/16 06:59 18:59 Intake Total 480 Output Total 300 Balance 180 - Medications Medications: Current Medications Aspirin (Ecotrin) 81 mg PO DAILY [facility] PRN Reason: Protocol Last Admin: 07/19/16 09:35 Dose: 81 mg Atorvastatin Calcium (Lipitor) 80 mg PO DIN [facility] PRN Reason: Protocol Last Admin: 07/18/16 18:13 Dose: 80 mg Carvedilol (Coreg) 6.25 mg PO 0800,1800 [facility] PRN Reason: Protocol Last Admin: 07/19/16 08:06 Dose: Not Given Docusate Sodium (Colace) 100 mg PO BID [facility] PRN Reason: Protocol Last Admin: 07/19/16 09:35 Dose: 100 mg Enoxaparin Sodium (Lovenox) 40 mg SC 0600 [facility] PRN Reason: Protocol Furosemide (Lasix) 40 mg PO DAILY [facility] PRN Reason: Protocol Last Admin: 07/19/16 09:36 Dose: 40 mg Gabapentin (Neurontin) 300 mg PO TID [facility] PRN Reason: Protocol Last Admin: 07/19/16 09:38 Dose: 300 mg Cefazolin Sodium (Ancef 1gm In Ns) 1 gm in 100 mls @ 100 mls/hr IVPB Q8 [facility] Last Admin: 07/19/16 06:23 Dose: 100 mls/hr Morphine Sulfate (Morphine) 4 mg IVP Q6H PRN; Protocol PRN Reason: Pain, severe (8-10) Polyethylene Glycol (Miralax) 17 gm PO BID [facility] PRN Reason: Protocol Last Admin: 07/19/16 09:38 Dose: 17 gm Prasugrel (Effient) 10 mg PO DAILY [facility] PRN Reason: Protocol Last Admin: 07/19/16 09:36 Dose: 10 mg
--- NOTE | 2016-07-19 14:24 | CP.PCM.PN ---
<Elizabeth Brown - Last Filed: 07/19/16 16:21> Subjective - Date & Time of Evaluation Date of Evaluation: 07/19/16 Time of Evaluation: 13:57 - Subjective Subjective: 56 year old male was seen resting comfortably at bedside, with attending Dr. Morrell, regarding ulceration to the plantar aspect of his 3rd metatarsal on the right foot with a fracture of the metatarsal. Patient is in no acute distress, AAOx3. Cast to right lower extremity is clean, dry, intact. He denies any pain to his right lower extremity. Denies n/v/f/c/sob/cp. Objective - Vital Signs/Intake and Output Vital Signs (last 24 hours): Temp Pulse Resp BP Pulse Ox 98.5 F 75 18 123/74 97 07/19/16 10:00 07/19/16 10:00 07/19/16 10:00 07/19/16 10:00 07/19/16 10:00 Intake and Output: 07/19/16 07/19/16 06:59 18:59 Intake Total 480 Output Total 300 Balance 180 - Medications Medications: Current Medications Aspirin (Ecotrin) 81 mg PO DAILY [facility] PRN Reason: Protocol Last Admin: 07/19/16 09:35 Dose: 81 mg Atorvastatin Calcium (Lipitor) 80 mg PO DIN [facility] PRN Reason: Protocol Last Admin: 07/18/16 18:13 Dose: 80 mg Carvedilol (Coreg) 6.25 mg PO 0800,1800 [facility] PRN Reason: Protocol Last Admin: 07/19/16 08:06 Dose: Not Given Docusate Sodium (Colace) 100 mg PO BID [facility] PRN Reason: Protocol Last Admin: 07/19/16 09:35 Dose: 100 mg Enoxaparin Sodium (Lovenox) 40 mg SC 0600 [facility] PRN Reason: Protocol Furosemide (Lasix) 40 mg PO DAILY [facility] PRN Reason: Protocol Last Admin: 07/19/16 09:36 Dose: 40 mg Gabapentin (Neurontin) 300 mg PO TID [facility] PRN Reason: Protocol Last Admin: 07/19/16 13:28 Dose: 300 mg Cefazolin Sodium (Ancef 1gm In Ns) 1 gm in 100 mls @ 100 mls/hr IVPB Q8 [facility] Last Admin: 07/19/16 13:28 Dose: 100 mls/hr Morphine Sulfate (Morphine) 4 mg IVP Q6H PRN; Protocol PRN Reason: Pain, severe (8-10) Polyethylene Glycol (Miralax) 17 gm PO BID [facility] PRN Reason: Protocol Last Admin: 07/19/16 09:38 Dose: 17 gm Prasugrel (Effient) 10 mg PO DAILY [facility] PRN Reason: Protocol Last Admin: 07/19/16 09:36 Dose: 10 mg - Constitutional Appears: Well, Non-toxic, No Acute Distress - Extremities Exam Additional comments: Right lower extremity focused exam: Vasc:DP and PT pulses non-palpable. CFT < 3 seconds to all digits. Mild pitting edema noted to right lower extremity Neuro:Gross sensation diminished Derm:Open ulceration noted to the plantar aspect of the 3rd metatarsal head, measuring approxmatly 1 cm by 0.3 cm by 0.2 cm, bed is granular, mild amount of serous drainage noted to dressing. Ortho: No pain on palpation to ulceration site on the right - Neurological Exam Neurological Exam: Alert, Awake, Oriented x3 - Psychiatric Exam Psychiatric exam: Normal Affect, Normal Mood Assessment and Plan - Assessment and Plan (Free Text) Assessment: 56 year old male with right foot ulceration and osteomyelitis Plan: patient exmined and evaluated with attending,Dr. Morrell chart, labs, vitals reviewed continue ivabx per ID cast removed from right LE right leg cleansed with normal sterile saline, hydrated with lotion right ulcer dressed with maxorb, abd cast applied to right lower extremity with stockingette, cast padding, and fiberglass cast tape cast to stay intact for a week podiatry will continue to follow patient while in house patient to follow up in [facility] upon discharge <Shameka Morrell - Last Filed: 08/10/16 08:10> Objective - Vital Signs/Intake and Output Vital Signs (last 24 hours): Temp Pulse Resp BP Pulse Ox 97.3 F L 71 18 101/65 98 07/28/16 10:00 07/28/16 10:00 07/28/16 10:00 07/28/16 10:00 07/26/16 16:00 Attending/Attestation - Attestation I have personally seen and examined this patient.: Yes I have fully participated in the care of the patient.: Yes I have reviewed all pertinent clinical information, including history, physical exam and plan: Yes
--- NOTE | 2016-07-19 16:31 | CP.PCM.PN ---
Subjective - Date & Time of Evaluation Date of Evaluation: 07/19/16 Time of Evaluation: 15:45 - Subjective Subjective: Infectious Disease Follow Up/Consult: July 19, 2016 56 yo male with multiple hospitalizations at numerous facilities for his lower extremities. Patient with swelling and drainage from ulceration at the base of the third toe on the right foot. The patient denies fevers or chills. MRI was done recently showing possible abscess formation at the base of the third toe in the right foot and strong suspicion for osteomyelitis. The patient has severe swelling of the right foot. The patient was to go for PICC line placement and start on 6 week course of Ancef IV q8hrs for osteomyelitis and the possible abscess formation. During the past 3 days, he appears to be responding to the Ancef treatment. The patient is concerned about treatment after TRCU time as he does not have the money to support Home IV therapy after TRCU time is completed. For this hospitalization, he was discharged about 24 hours prior to admission for this hospitalization. He developed weakness of the left leg and was unable to place weight on it. He decided to come back to [facility]. Dr. Mast aspirated the Left knee. Cultures no growth. The patient with increased mobility of the left leg at the knee today. Final culture results from knee aspirate are negative. PMHx: Hypertension, Coronary Artery disease, Peripheral Vascular Disease, Obesity, [place] history, Bilateral lower extremity neuropathy, history of osteomyelitis. PSHx: Bone biopsy Allergies: NKDA Social Hx: Ex-smoker, Ex-EtOH user. On disability now. Medications: Active Medications Aspirin (Ecotrin) 81 mg PO DAILY [facility] PRN Reason: Protocol Last Admin: 07/19/16 09:35 Dose: 81 mg Atorvastatin Calcium (Lipitor) 80 mg PO DIN [facility] PRN Reason: Protocol Last Admin: 07/18/16 18:13 Dose: 80 mg Carvedilol (Coreg) 6.25 mg PO 0800,1800 [facility] PRN Reason: Protocol Last Admin: 07/19/16 08:06 Dose: Not Given Docusate Sodium (Colace) 100 mg PO BID [facility] PRN Reason: Protocol Last Admin: 07/19/16 09:35 Dose: 100 mg Enoxaparin Sodium (Lovenox) 40 mg SC 0600 [facility] PRN Reason: Protocol Furosemide (Lasix) 40 mg PO DAILY [facility] PRN Reason: Protocol Last Admin: 07/19/16 09:36 Dose: 40 mg Gabapentin (Neurontin) 300 mg PO TID [facility] PRN Reason: Protocol Last Admin: 07/19/16 13:28 Dose: 300 mg Cefazolin Sodium (Ancef 1gm In Ns) 1 gm in 100 mls @ 100 mls/hr IVPB Q8 [facility] Last Admin: 07/19/16 13:28 Dose: 100 mls/hr Morphine Sulfate (Morphine) 4 mg IVP Q6H PRN; Protocol PRN Reason: Pain, severe (8-10) Polyethylene Glycol (Miralax) 17 gm PO BID [facility] PRN Reason: Protocol Last Admin: 07/19/16 09:38 Dose: 17 gm Prasugrel (Effient) 10 mg PO DAILY [facility] PRN Reason: Protocol Last Admin: 07/19/16 09:36 Dose: 10 mg Family Hx: None ROS: No fevers, chills, nausea, vomiting, diarrhea, headaches, dizziness, chest pain , abdominal pain, melena, hematuria, hematemesis, hematochezia, depression, anxiety Objective - Vital Signs/Intake and Output Vital Signs (last 24 hours): Temp Pulse Resp BP Pulse Ox 98.5 F 75 18 123/74 97 07/19/16 10:00 07/19/16 10:00 07/19/16 10:00 07/19/16 10:00 07/19/16 10:00 Intake and Output: 07/19/16 07/19/16 06:59 18:59 Intake Total 480 Output Total 300 Balance 180 - Medications Medications: Current Medications Aspirin (Ecotrin) 81 mg PO DAILY [facility] PRN Reason: Protocol Last Admin: 07/19/16 09:35 Dose: 81 mg Atorvastatin Calcium (Lipitor) 80 mg PO DIN [facility] PRN Reason: Protocol Last Admin: 07/18/16 18:13 Dose: 80 mg Carvedilol (Coreg) 6.25 mg PO 0800,1800 [facility] PRN Reason: Protocol Last Admin: 07/19/16 08:06 Dose: Not Given Docusate Sodium (Colace) 100 mg PO BID [facility] PRN Reason: Protocol Last Admin: 07/19/16 09:35 Dose: 100 mg Enoxaparin Sodium (Lovenox) 40 mg SC 0600 [facility] PRN Reason: Protocol Furosemide (Lasix) 40 mg PO DAILY [facility] PRN Reason: Protocol Last Admin: 07/19/16 09:36 Dose: 40 mg Gabapentin (Neurontin) 300 mg PO TID [facility] PRN Reason: Protocol Last Admin: 07/19/16 13:28 Dose: 300 mg Cefazolin Sodium (Ancef 1gm In Ns) 1 gm in 100 mls @ 100 mls/hr IVPB Q8 [facility] Last Admin: 07/19/16 13:28 Dose: 100 mls/hr Morphine Sulfate (Morphine) 4 mg IVP Q6H PRN; Protocol PRN Reason: Pain, severe (8-10) Polyethylene Glycol (Miralax) 17 gm PO BID [facility] PRN Reason: Protocol Last Admin: 07/19/16 09:38 Dose: 17 gm Prasugrel (Effient) 10 mg PO DAILY [facility] PRN Reason: Protocol Last Admin: 07/19/16 09:36 Dose: 10 mg - Constitutional Appears: Non-toxic, No Acute Distress - Head Exam Head Exam: ATRAUMATIC, NORMOCEPHALIC - Eye Exam Eye Exam: EOMI, PERRL Pupil Exam: NORMAL ACCOMODATION, PERRL - ENT Exam ENT Exam: Mucous Membranes Moist, Normal External Ear Exam, TM's Normal Bilaterally - Neck Exam Neck Exam: Full ROM, Normal Inspection - Respiratory Exam Respiratory Exam: Clear to Ausculation Bilateral, NORMAL BREATHING PATTERN. absent: Rales, Rhonchi, Wheezes - Cardiovascular Exam Cardiovascular Exam: REGULAR RHYTHM, RRR, +S1, +S2 - GI/Abdominal Exam GI & Abdominal Exam: Soft, Normal Bowel Sounds. absent: Distended, Tenderness - Extremities Exam Additional comments: From last hospitalization: Right leg with +2-3 edema of the entire right leg. 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 No odor. Probes to bone. Sloughing of the skin on both legs. Right lower leg in contact cast now. Eczema of the lower left leg. Left knee aspiration done by Dr. Cabrera today. The patient with mild swelling to the left lower leg. +1 edema to the left foot. Distal tip of the right foot 2nd toe with dry gangrene. - Neurological Exam Neurological Exam: Alert, CN II-XII Intact, Oriented x3 Additional comments: decreased sensation of both lower extremities. Weak distal pulses. chronic venous stasis changes to both legs with right much worse than left. - Psychiatric Exam Psychiatric exam: Normal Affect, Normal Mood - Skin Skin Exam: Intact, Normal Color Assessment and Plan - Assessment and Plan (Free Text) Assessment: 56 yo male now presenting with left leg weakness and inability to put weight on this leg. He is still receiving Ancef for osteomyelitis of the right foot. Crystal analysis is showing calcium pyrophosphate crystals... possible pseudogout. No signs of new infection on physical exam. Will continue with Ancef IV for right foot osteomyelitis. Left knee aspirate cultures showing no new growth so far. My plan is to continue with Ancef alone at this point to complete 6 week course. Noted synovial fluid cell counts and predominance of WBC there. Left knee aspirate cultures are negative. Clinically improving. Supportive care. Thank you for allowing me to participate in the care of the patient, we will follow with you.
[2016-07-19] MEDS: Morphine 4 mg/ml ISec IVP PRN (21:23)
[2016-07-19] MEDS ORDERED: Morphine 4 mg/ml ISec IVP STA (23:05)
[2016-07-20] MEDS: ceFAZolin 1 gm in NS 1 GM/100 ML BAG IVPB SCH ×3 (05:29→21:34)
[2016-07-20] MEDS: Enoxaparin 40 mg Syringe SC SCH ×2 (05:31→06:51)
[2016-07-20] MEDS: Morphine 4 mg/ml ISec IVP PRN ×2 (05:33→21:37)
--- NOTE | 2016-07-20 06:45 | PN ---
DATE: 07/20/2016 SUBJECTIVE: The patient has no complaints of any chest pain. No shortness of breath, no headaches. He is getting IV antibiotics. He was complaining of pain in his finger yesterday. PHYSICAL EXAMINATION: VITAL SIGNS: Temperature is 98.9, pulse of 89, blood pressure 102/67, respirations 20. GENERAL: The patient comfortable, in no acute distress. HEENT: Anicteric sclerae. Moist mucosa. NECK: No JVD or adenopathy. CARDIAC: S1/S2. No murmurs. No rubs. Regular. RESPIRATORY: Clear to auscultation bilaterally. No wheezes, rales, or rhonchi. Good air entry. ABDOMEN: Bowel sounds are positive, soft, nontender, and nondistended. EXTREMITIES: No edema. Has 1+ pulses. ASSESSMENT: 1. Left knee pseudogout. 2. Right foot osteomyelitis/ulcer. 3. Obesity with a body mass index of 39. 4. Coronary artery disease. 5. Peripheral arterial disease. 6. Hypertension. PLAN: The patient is currently comfortable. He is on cefazolin for his antibiotics. He is on Colac e for constipation. The patient has been started on colchicine. He is on Coreg. He is going to con tinue with aspirin daily. The patient is on MiraLax for constipation. He is on Neurontin for neurop athy. He is on a heart healthy diet. He is being followed by podiatry and infectious disease. Hank Barroso MD cc: [id number] TT: 07/20/2016 06:45:50 Confirmation # [id number] Dictation # [id number] tn
--- NOTE | 2016-07-20 09:40 | PN ---
DATE: 07/20/2016 This is a 56-year-old male seen for followup of osteomyelitis to the third MPJ of his right foot. Th e patient is seen at bedside. He states his cast is comfortable; however, he is complaining of acute pain in his hand. He states that he has gout. The patient's vital signs are stable. His cast is c lean, dry and intact. We put it on yesterday and normally, we bivalve this cast; however, today, we did not do a bivalve to see if the leg would swell up underneath the cast and at this time, it has no t. He is seen sitting at the bedside. If the leg was going to swell, I would have seen the swelling at this time, so it was decided to leave the cast intact. It is more stable. He is weightbearing o n it and we can always open it if we need to and bivalve it at bedside. The patient has no new labs and he is on IV antibiotics as per infectious disease. ASSESSMENT: Lymphedema and osteomyelitis of the third metatarsophalangeal joint with a healing ulcer ation and fracture. PLAN OF TREATMENT: Total contact cast, weightbearing to tolerance with physical therapy. The patien t will be seen and followed. Shameka Morrell DPM cc: [id number] TT: 07/20/2016 09:39:08 Confirmation # [id number] Dictation # [id number] ashly
[2016-07-20] MEDS: POLYETHYLENE GLYCOL 3350 17 GM/Dose PACKET PO SCH ×2 (10:47→18:36)
--- NOTE | 2016-07-20 17:03 | CP.PCM.PN ---
Subjective - Date & Time of Evaluation Date of Evaluation: 07/20/16 Time of Evaluation: 14:30 - Subjective Subjective: Infectious Disease Follow Up: July 20, 2016 56 yo male with multiple hospitalizations at numerous facilities for his lower extremities. Patient with swelling and drainage from ulceration at the base of the third toe on the right foot. The patient denies fevers or chills. MRI was done recently showing possible abscess formation at the base of the third toe in the right foot and strong suspicion for osteomyelitis. The patient has severe swelling of the right foot. The patient was to go for PICC line placement and start on 6 week course of Ancef IV q8hrs for osteomyelitis and the possible abscess formation. During the past 3 days, he appears to be responding to the Ancef treatment. The patient is concerned about treatment after TRCU time as he does not have the money to support Home IV therapy after TRCU time is completed. For this hospitalization, he was discharged about 24 hours prior to admission for this hospitalization. He developed weakness of the left leg and was unable to place weight on it. He decided to come back to [facility] [place]. Dr. Mast aspirated the Left knee earlier in hospitalization. Cultures no growth. The patient with increased mobility of the left leg at the knee today. Final culture results from knee aspirate are negative. Objective - Vital Signs/Intake and Output Vital Signs (last 24 hours): Temp Pulse Resp BP Pulse Ox 98.4 F 66 18 153/91 H 97 07/20/16 10:00 07/20/16 10:41 07/20/16 10:00 07/20/16 10:43 07/20/16 10:00 - Medications Medications: Current Medications Aspirin (Ecotrin) 81 mg PO DAILY VICTOR MANUEL PRN Reason: Protocol Last Admin: 07/20/16 10:41 Dose: 81 mg Atorvastatin Calcium (Lipitor) 80 mg PO DIN VICTOR MANUEL PRN Reason: Protocol Last Admin: 07/19/16 17:35 Dose: 80 mg Carvedilol (Coreg) 6.25 mg PO 0800,1800 VICTOR MANUEL PRN Reason: Protocol Last Admin: 07/20/16 10:41 Dose: 6.25 mg Colchicine (Colocrys) 0.6 mg PO DAILY VICTOR MANUEL PRN Reason: Protocol Last Admin: 07/20/16 10:38 Dose: 0.6 mg Docusate Sodium (Colace) 100 mg PO BID VICTOR MANUEL PRN Reason: Protocol Last Admin: 07/20/16 10:38 Dose: 100 mg Enoxaparin Sodium (Lovenox) 40 mg SC 0600 VICTOR MANUEL PRN Reason: Protocol Last Admin: 07/20/16 06:51 Dose: 40 mg Furosemide (Lasix) 40 mg PO DAILY VICTOR MANUEL PRN Reason: Protocol Last Admin: 07/20/16 10:43 Dose: 40 mg Gabapentin (Neurontin) 300 mg PO TID VICTOR MANUEL PRN Reason: Protocol Last Admin: 07/20/16 15:03 Dose: 300 mg Cefazolin Sodium (Ancef 1gm In Ns) 1 gm in 100 mls @ 100 mls/hr IVPB Q8 VICTOR MANUEL Last Admin: 07/20/16 15:01 Dose: 100 mls/hr Morphine Sulfate (Morphine) 4 mg IVP Q6H PRN; Protocol PRN Reason: Pain, severe (8-10) Last Admin: 07/20/16 05:33 Dose: 4 mg Polyethylene Glycol (Miralax) 17 gm PO BID VICTOR MANUEL PRN Reason: Protocol Last Admin: 07/20/16 10:47 Dose: 17 gm Prasugrel (Effient) 10 mg PO DAILY VICTOR MANUEL PRN Reason: Protocol Last Admin: 07/20/16 10:42 Dose: 10 mg - Constitutional Appears: Non-toxic, No Acute Distress, Chronically Ill - Head Exam Head Exam: ATRAUMATIC, NORMOCEPHALIC - Eye Exam Eye Exam: EOMI, PERRL - ENT Exam ENT Exam: Mucous Membranes Moist, Normal External Ear Exam, TM's Normal Bilaterally - Neck Exam Neck Exam: Full ROM, Normal Inspection. absent: Tenderness - Respiratory Exam Respiratory Exam: Clear to Ausculation Bilateral, Rales, NORMAL BREATHING PATTERN. absent: Rhonchi, Wheezes - Cardiovascular Exam Cardiovascular Exam: REGULAR RHYTHM, RRR, +S1, +S2 - GI/Abdominal Exam GI & Abdominal Exam: Soft, Normal Bowel Sounds. absent: Distended, Tenderness - Extremities Exam Additional comments: From last hospitalization: Right leg with +2-3 edema of the entire right leg. 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 No odor. Probes to bone. Sloughing of the skin on both legs. Right lower leg in contact cast now. Eczema of the lower left leg. Left knee aspiration done by Dr. Cabrera today. The patient with mild swelling to the left lower leg. +1 edema to the left foot. Distal tip of the right foot 2nd toe with dry gangrene. - Neurological Exam Neurological Exam: Alert, Awake, CN II-XII Intact, Oriented x3 Additional comments: decreased sensation of both lower extremities. Weak distal pulses. chronic venous stasis changes to both legs with right much worse than left. - Psychiatric Exam Psychiatric exam: Normal Affect, Normal Mood - Skin Additional comments: as above Assessment and Plan - Assessment and Plan (Free Text) Assessment: 56 yo male now presenting with left leg weakness and inability to put weight on this leg. He is still receiving Ancef for osteomyelitis of the right foot. Crystal analysis is showing calcium pyrophosphate crystals... possible pseudogout. No signs of new infection on physical exam. Will continue with Ancef IV for right foot osteomyelitis. Left knee aspirate cultures showing no new growth so far. My plan is to continue with Ancef alone at this point to complete 6 week course. Noted synovial fluid cell counts and predominance of WBC there. Left knee aspirate cultures are negative. Clinically improving. Supportive care. Thank you for allowing me to participate in the care of the patient, we will follow with you.
[2016-07-21] MEDS: ceFAZolin 1 gm in NS 1 GM/100 ML BAG IVPB SCH ×3 (05:54→21:41)
[2016-07-21] MEDS: Morphine 4 mg/ml ISec IVP PRN (05:55)
[2016-07-21] MEDS: Enoxaparin 40 mg Syringe SC SCH (06:03)
[2016-07-21] MEDS: POLYETHYLENE GLYCOL 3350 17 GM/Dose PACKET PO SCH ×2 (09:38→17:54)
--- NOTE | 2016-07-21 10:57 | CP.PCM.PN ---
<Elizabeth Brown - Last Filed: 07/21/16 10:55> Subjective - Date & Time of Evaluation Date of Evaluation: 07/21/16 Time of Evaluation: 10:55 - Subjective Subjective: 56 year old male was seen resting comfortably at bedside regarding ulceration to the plantar aspect of his 3rd metatarsal on the right foot with a fracture of the metatarsal. Patient is in no acute distress, AAOx3. Cast to right lower extremity is clean, dry, intact. He denies any pain to his right lower extremity, but admits cast is tight. Denies n/v/f/c/sob/cp. Objective - Vital Signs/Intake and Output Vital Signs (last 24 hours): Temp Pulse Resp BP Pulse Ox 98.4 F 64 15 133/89 96 07/20/16 10:00 07/21/16 08:40 07/20/16 16:00 07/21/16 09:36 07/20/16 16:00 Intake and Output: 07/21/16 07/21/16 06:59 18:59 Intake Total 420 Balance 420 - Medications Medications: Current Medications Aspirin (Ecotrin) 81 mg PO DAILY VICTOR MANUEL PRN Reason: Protocol Last Admin: 07/21/16 09:35 Dose: 81 mg Atorvastatin Calcium (Lipitor) 80 mg PO DIN VICTOR MANUEL PRN Reason: Protocol Last Admin: 07/20/16 18:36 Dose: 80 mg Carvedilol (Coreg) 6.25 mg PO 0800,1800 VICTOR MANUEL PRN Reason: Protocol Last Admin: 07/21/16 08:40 Dose: 6.25 mg Colchicine (Colocrys) 0.6 mg PO DAILY VICTOR MANUEL PRN Reason: Protocol Last Admin: 07/21/16 09:35 Dose: 0.6 mg Docusate Sodium (Colace) 100 mg PO BID VICTOR MANUEL PRN Reason: Protocol Last Admin: 07/21/16 09:35 Dose: 100 mg Enoxaparin Sodium (Lovenox) 40 mg SC 0600 VICTOR MANUEL PRN Reason: Protocol Last Admin: 07/21/16 06:03 Dose: 40 mg Furosemide (Lasix) 40 mg PO DAILY VICTOR MANUEL PRN Reason: Protocol Last Admin: 07/21/16 09:36 Dose: 40 mg Gabapentin (Neurontin) 300 mg PO TID VICTOR MANUEL PRN Reason: Protocol Last Admin: 07/21/16 09:37 Dose: 300 mg Cefazolin Sodium (Ancef 1gm In Ns) 1 gm in 100 mls @ 100 mls/hr IVPB Q8 VICTOR MANUEL Last Admin: 07/21/16 05:54 Dose: 100 mls/hr Morphine Sulfate (Morphine) 4 mg IVP Q6H PRN; Protocol PRN Reason: Pain, severe (8-10) Last Admin: 07/21/16 05:55 Dose: 4 mg Polyethylene Glycol (Miralax) 17 gm PO BID VICTOR MANUEL PRN Reason: Protocol Last Admin: 07/21/16 09:38 Dose: Not Given Prasugrel (Effient) 10 mg PO DAILY VICTOR MANUEL PRN Reason: Protocol Last Admin: 07/21/16 09:36 Dose: 10 mg - Constitutional Appears: Well, Non-toxic, No Acute Distress - Extremities Exam Additional comments: cast clean, dry, intact to RLE CFT< 3 seconds to all digits on RLE - Neurological Exam Neurological Exam: Alert, Awake, Oriented x3 - Psychiatric Exam Psychiatric exam: Normal Affect, Normal Mood Assessment and Plan - Assessment and Plan (Free Text) Assessment: 56 year old male with right foot ulceration and osteomyelitis Plan: patient examined and evaluated discussed with attending Dr. Barton chart, labs, vitals reviewed continue iv abx per ID cast bi-valved to allow for swelling podiatry will continue to follow patient while in house patient to follow up in [facility] upon discharge <Jamie Barton - Last Filed: 07/21/16 11:32> Objective - Vital Signs/Intake and Output Vital Signs (last 24 hours): Temp Pulse Resp BP Pulse Ox 98.4 F 64 15 133/89 96 07/20/16 10:00 07/21/16 08:40 07/20/16 16:00 07/21/16 09:36 07/20/16 16:00 Intake and Output: 07/21/16 07/21/16 06:59 18:59 Intake Total 420 Balance 420 - Medications Medications: Current Medications Aspirin (Ecotrin) 81 mg PO DAILY VICTOR MANUEL PRN Reason: Protocol Last Admin: 07/21/16 09:35 Dose: 81 mg Atorvastatin Calcium (Lipitor) 80 mg PO DIN VICTOR MANUEL PRN Reason: Protocol Last Admin: 07/20/16 18:36 Dose: 80 mg Carvedilol (Coreg) 6.25 mg PO 0800,1800 VICTOR MANUEL PRN Reason: Protocol Last Admin: 07/21/16 08:40 Dose: 6.25 mg Colchicine (Colocrys) 0.6 mg PO DAILY VICTOR MANUEL PRN Reason: Protocol Last Admin: 07/21/16 09:35 Dose: 0.6 mg Docusate Sodium (Colace) 100 mg PO BID VICTOR MANUEL PRN Reason: Protocol Last Admin: 07/21/16 09:35 Dose: 100 mg Enoxaparin Sodium (Lovenox) 40 mg SC 0600 VICTOR MANUEL PRN Reason: Protocol Last Admin: 07/21/16 06:03 Dose: 40 mg Furosemide (Lasix) 40 mg PO DAILY VICTOR MANUEL PRN Reason: Protocol Last Admin: 07/21/16 09:36 Dose: 40 mg Gabapentin (Neurontin) 300 mg PO TID VICTOR MANUEL PRN Reason: Protocol Last Admin: 07/21/16 09:37 Dose: 300 mg Cefazolin Sodium (Ancef 1gm In Ns) 1 gm in 100 mls @ 100 mls/hr IVPB Q8 VICTOR MANUEL Last Admin: 07/21/16 05:54 Dose: 100 mls/hr Morphine Sulfate (Morphine) 4 mg IVP Q6H PRN; Protocol PRN Reason: Pain, severe (8-10) Last Admin: 07/21/16 05:55 Dose: 4 mg Polyethylene Glycol (Miralax) 17 gm PO BID VICTOR MANUEL PRN Reason: Protocol Last Admin: 07/21/16 09:38 Dose: Not Given Prasugrel (Effient) 10 mg PO DAILY VICTOR MANUEL PRN Reason: Protocol Last Admin: 07/21/16 09:36 Dose: 10 mg Attending/Attestation - Attestation I have personally seen and examined this patient.: Yes I have fully participated in the care of the patient.: Yes I have reviewed all pertinent clinical information, including history, physical exam and plan: Yes
--- NOTE | 2016-07-21 15:51 | CP.PCM.PN ---
Subjective - Date & Time of Evaluation Date of Evaluation: 07/21/16 Time of Evaluation: 15:00 - Subjective Subjective: Infectious Disease Follow Up: July 21, 2016 56 yo male with multiple hospitalizations at numerous facilities for his lower extremities. Patient with swelling and drainage from ulceration at the base of the third toe on the right foot. The patient denies fevers or chills. MRI was done recently showing possible abscess formation at the base of the third toe in the right foot and strong suspicion for osteomyelitis. The patient has severe swelling of the right foot. The patient was to go for PICC line placement and start on 6 week course of Ancef IV q8hrs for osteomyelitis and the possible abscess formation. During the past 3 days, he appears to be responding to the Ancef treatment. The patient is concerned about treatment after TRCU time as he does not have the money to support Home IV therapy after TRCU time is completed. For this hospitalization, he was discharged about 24 hours prior to admission for this hospitalization. He developed weakness of the left leg and was unable to place weight on it. He decided to come back to [facility] [place]. Dr. Mast aspirated the Left knee earlier in hospitalization. Cultures no growth. The patient with increased mobility of the left leg at the knee today. Final culture results from knee aspirate are negative. Objective - Vital Signs/Intake and Output Vital Signs (last 24 hours): Temp Pulse Resp BP Pulse Ox 98.3 F 86 16 133/89 100 07/21/16 10:00 07/21/16 10:00 07/21/16 10:00 07/21/16 10:00 07/21/16 10:00 Intake and Output: 07/21/16 07/21/16 06:59 18:59 Intake Total 420 Balance 420 - Medications Medications: Current Medications Aspirin (Ecotrin) 81 mg PO DAILY VICTOR MANUEL PRN Reason: Protocol Last Admin: 07/21/16 09:35 Dose: 81 mg Atorvastatin Calcium (Lipitor) 80 mg PO DIN VICTOR MANUEL PRN Reason: Protocol Last Admin: 07/20/16 18:36 Dose: 80 mg Carvedilol (Coreg) 6.25 mg PO 0800,1800 VICTOR MANUEL PRN Reason: Protocol Last Admin: 07/21/16 08:40 Dose: 6.25 mg Colchicine (Colocrys) 0.6 mg PO DAILY VICTOR MANUEL PRN Reason: Protocol Last Admin: 07/21/16 09:35 Dose: 0.6 mg Docusate Sodium (Colace) 100 mg PO BID VICTOR MANUEL PRN Reason: Protocol Last Admin: 07/21/16 09:35 Dose: 100 mg Enoxaparin Sodium (Lovenox) 40 mg SC 0600 VICTOR MANUEL PRN Reason: Protocol Last Admin: 07/21/16 06:03 Dose: 40 mg Furosemide (Lasix) 40 mg PO DAILY VICTOR MANUEL PRN Reason: Protocol Last Admin: 07/21/16 09:36 Dose: 40 mg Gabapentin (Neurontin) 300 mg PO TID VICTOR MANUEL PRN Reason: Protocol Last Admin: 07/21/16 13:56 Dose: 300 mg Cefazolin Sodium (Ancef 1gm In Ns) 1 gm in 100 mls @ 100 mls/hr IVPB Q8 VICTOR MANUEL Last Admin: 07/21/16 13:55 Dose: 100 mls/hr Morphine Sulfate (Morphine) 4 mg IVP Q6H PRN; Protocol PRN Reason: Pain, severe (8-10) Last Admin: 07/21/16 05:55 Dose: 4 mg Polyethylene Glycol (Miralax) 17 gm PO BID VICTOR MANUEL PRN Reason: Protocol Last Admin: 07/21/16 09:38 Dose: Not Given Prasugrel (Effient) 10 mg PO DAILY VICTOR MANUEL PRN Reason: Protocol Last Admin: 07/21/16 09:36 Dose: 10 mg - Constitutional Appears: Non-toxic, No Acute Distress, Chronically Ill - Head Exam Head Exam: ATRAUMATIC, NORMOCEPHALIC - Eye Exam Eye Exam: EOMI, PERRL Pupil Exam: NORMAL ACCOMODATION, PERRL - ENT Exam ENT Exam: Mucous Membranes Moist, Normal External Ear Exam, TM's Normal Bilaterally - Neck Exam Neck Exam: Full ROM, Normal Inspection - Respiratory Exam Respiratory Exam: Clear to Ausculation Bilateral, NORMAL BREATHING PATTERN. absent: Rales, Rhonchi, Wheezes - Cardiovascular Exam Cardiovascular Exam: REGULAR RHYTHM, RRR, +S1, +S2 - GI/Abdominal Exam GI & Abdominal Exam: Soft, Normal Bowel Sounds. absent: Distended, Tenderness - Extremities Exam Additional comments: From last hospitalization: Right leg with +2-3 edema of the entire right leg. 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 No odor. Probes to bone. Sloughing of the skin on both legs. Right lower leg in contact cast now. Eczema of the lower left leg. Left knee aspiration done by Dr. Cabrera today. The patient with mild swelling to the left lower leg. +1 edema to the left foot. Distal tip of the right foot 2nd toe with dry gangrene. - Neurological Exam Neurological Exam: Alert, Awake, CN II-XII Intact, Oriented x3 Additional comments: decreased sensation of both lower extremities. Weak distal pulses. chronic venous stasis changes to both legs with right much worse than left. - Psychiatric Exam Psychiatric exam: Normal Affect, Normal Mood - Skin Additional comments: as above Assessment and Plan - Assessment and Plan (Free Text) Assessment: 56 yo male now presenting with left leg weakness and inability to put weight on this leg. He is still receiving Ancef for osteomyelitis of the right foot. Crystal analysis is showing calcium pyrophosphate crystals... possible pseudogout. No signs of new infection on physical exam. Will continue with Ancef IV for right foot osteomyelitis. Left knee aspirate cultures showing no new growth so far. My plan is to continue with Ancef alone at this point to complete 6 week course. Noted synovial fluid cell counts and predominance of WBC there. Left knee aspirate cultures are negative. Clinically improving. Supportive care. Thank you for allowing me to participate in the care of the patient, we will follow with you.
[2016-07-22] MEDS: ceFAZolin 1 gm in NS 1 GM/100 ML BAG IVPB SCH ×3 (06:10→21:56)
[2016-07-22] MEDS: Enoxaparin 40 mg Syringe SC SCH (06:11)
--- NOTE | 2016-07-22 08:21 | CP.PCM.PN ---
<Uriel Lees - Last Filed: 07/22/16 08:28> Subjective - Date & Time of Evaluation Date of Evaluation: 07/22/16 Time of Evaluation: 08:17 - Subjective Subjective: 56 year old male was seen at bedside with attending Dr. Barton this AM concerning ulceration to the plantar aspect of his 3rd metatarsal on the right foot with a fracture of the metatarsal. Patient was resting comfortably in bed at the time of visit and denies of any overnight acute distress, AAOx3. Cast to right lower extremity is clean, dry, intact. He denies any pain to his right lower extremity. Patient was asked if the cast is tight, but denied. Patient denies of any discomfort with the casting. Patient denies of any N/V/F/ C or SOB today Objective - Vital Signs/Intake and Output Vital Signs (last 24 hours): Temp Pulse Resp BP Pulse Ox 98.0 F 66 18 125/78 98 07/22/16 06:00 07/22/16 06:00 07/22/16 06:00 07/22/16 06:00 07/22/16 06:00 - Medications Medications: Current Medications Aspirin (Ecotrin) 81 mg PO DAILY VICTOR MANUEL PRN Reason: Protocol Last Admin: 07/21/16 09:35 Dose: 81 mg Atorvastatin Calcium (Lipitor) 80 mg PO DIN VICTOR MANUEL PRN Reason: Protocol Last Admin: 07/21/16 17:54 Dose: 80 mg Carvedilol (Coreg) 6.25 mg PO 0800,1800 VICTOR MANUEL PRN Reason: Protocol Last Admin: 07/21/16 17:54 Dose: 6.25 mg Colchicine (Colocrys) 0.6 mg PO DAILY VICTOR MANUEL PRN Reason: Protocol Last Admin: 07/21/16 09:35 Dose: 0.6 mg Docusate Sodium (Colace) 100 mg PO BID VICTOR MANUEL PRN Reason: Protocol Last Admin: 07/21/16 17:53 Dose: 100 mg Enoxaparin Sodium (Lovenox) 40 mg SC 0600 VICTOR MANUEL PRN Reason: Protocol Last Admin: 07/22/16 06:11 Dose: 40 mg Furosemide (Lasix) 40 mg PO DAILY VICTOR MANUEL PRN Reason: Protocol Last Admin: 07/21/16 09:36 Dose: 40 mg Gabapentin (Neurontin) 300 mg PO TID VICTOR MANUEL PRN Reason: Protocol Last Admin: 07/21/16 17:54 Dose: 300 mg Cefazolin Sodium (Ancef 1gm In Ns) 1 gm in 100 mls @ 100 mls/hr IVPB Q8 VICTOR MANUEL Last Admin: 07/22/16 06:10 Dose: 100 mls/hr Morphine Sulfate (Morphine) 4 mg IVP Q6H PRN; Protocol PRN Reason: Pain, severe (8-10) Last Admin: 07/21/16 05:55 Dose: 4 mg Polyethylene Glycol (Miralax) 17 gm PO BID IVCTOR MANUEL PRN Reason: Protocol Last Admin: 07/21/16 17:54 Dose: Not Given Prasugrel (Effient) 10 mg PO DAILY VICTOR MANUEL PRN Reason: Protocol Last Admin: 07/21/16 09:36 Dose: 10 mg - Constitutional Appears: Well, Non-toxic, No Acute Distress - Extremities Exam Additional comments: RLE exam: Cast clean, dry, intact to RLE CFT< 3 seconds to all digits on RLE - Neurological Exam Neurological Exam: Alert, Awake, Oriented x3 - Psychiatric Exam Psychiatric exam: Normal Affect, Normal Mood - Skin Skin Exam: Normal Color, Warm Assessment and Plan - Assessment and Plan (Free Text) Assessment: 56 year old male with right foot ulceration and osteomyelitis Plan: patient examined and evaluated Rounded with attending Dr. Barton chart, labs, vitals reviewed bi-valved cating left intact. continue iv abx per ID podiatry will continue to follow patient while in house patient to follow up in [facility] upon discharge <Jamie Barton - Last Filed: 07/22/16 10:43> Objective - Vital Signs/Intake and Output Vital Signs (last 24 hours): Temp Pulse Resp BP Pulse Ox 98.5 F 79 18 114/59 L 97 07/22/16 10:00 07/22/16 10:00 07/22/16 10:00 07/22/16 10:10 07/22/16 10:00 - Medications Medications: Current Medications Aspirin (Ecotrin) 81 mg PO DAILY VICTOR MANUEL PRN Reason: Protocol Last Admin: 07/22/16 10:09 Dose: 81 mg Atorvastatin Calcium (Lipitor) 80 mg PO DIN VICTOR MANUEL PRN Reason: Protocol Last Admin: 07/21/16 17:54 Dose: 80 mg Carvedilol (Coreg) 6.25 mg PO 0800,1800 VICTOR MANUEL PRN Reason: Protocol Last Admin: 07/22/16 08:19 Dose: 6.25 mg Colchicine (Colocrys) 0.6 mg PO DAILY VICTOR MANUEL PRN Reason: Protocol Last Admin: 07/22/16 10:09 Dose: 0.6 mg Docusate Sodium (Colace) 100 mg PO BID VICTOR MANUEL PRN Reason: Protocol Last Admin: 07/22/16 10:09 Dose: 100 mg Enoxaparin Sodium (Lovenox) 40 mg SC 0600 VICTOR MANUEL PRN Reason: Protocol Last Admin: 07/22/16 06:11 Dose: 40 mg Furosemide (Lasix) 40 mg PO DAILY VICTOR MANUEL PRN Reason: Protocol Last Admin: 07/22/16 10:10 Dose: 40 mg Gabapentin (Neurontin) 300 mg PO TID VICTOR MANUEL PRN Reason: Protocol Last Admin: 07/22/16 10:09 Dose: 300 mg Cefazolin Sodium (Ancef 1gm In Ns) 1 gm in 100 mls @ 100 mls/hr IVPB Q8 VICTOR MANUEL Last Admin: 07/22/16 06:10 Dose: 100 mls/hr Morphine Sulfate (Morphine) 4 mg IVP Q6H PRN; Protocol PRN Reason: Pain, severe (8-10) Last Admin: 07/21/16 05:55 Dose: 4 mg Polyethylene Glycol (Miralax) 17 gm PO BID VICTOR MANUEL PRN Reason: Protocol Last Admin: 07/22/16 10:08 Dose: 17 gm Prasugrel (Effient) 10 mg PO DAILY VICTOR MANUEL PRN Reason: Protocol Last Admin: 07/22/16 10:09 Dose: 10 mg Attending/Attestation - Attestation I have personally seen and examined this patient.: Yes I have fully participated in the care of the patient.: Yes I have reviewed all pertinent clinical information, including history, physical exam and plan: Yes
[2016-07-22] MEDS: POLYETHYLENE GLYCOL 3350 17 GM/Dose PACKET PO SCH ×2 (10:08→17:36)
--- NOTE | 2016-07-22 13:24 | CP.PCM.PN ---
Subjective - Date & Time of Evaluation Date of Evaluation: 07/22/16 Time of Evaluation: 13:00 - Subjective Subjective: Infectious Disease Follow Up: July 22, 2016 56 yo male with multiple hospitalizations at numerous facilities for his lower extremities. Patient with swelling and drainage from ulceration at the base of the third toe on the right foot. The patient denies fevers or chills. MRI was done recently showing possible abscess formation at the base of the third toe in the right foot and strong suspicion for osteomyelitis. The patient has severe swelling of the right foot. The patient was to go for PICC line placement and start on 6 week course of Ancef IV q8hrs for osteomyelitis and the possible abscess formation. During the past 3 days, he appears to be responding to the Ancef treatment. The patient is concerned about treatment after TRCU time as he does not have the money to support Home IV therapy after TRCU time is completed. For this hospitalization, he was discharged about 24 hours prior to admission for this hospitalization. He developed weakness of the left leg and was unable to place weight on it. He decided to come back [place] [facility] [place]ast aspirated the Left knee earlier in hospitalization. Cultures no growth. The patient with increased mobility of the left leg at the knee today. Final culture results from knee aspirate are negative. No new issues. Objective - Vital Signs/Intake and Output Vital Signs (last 24 hours): Temp Pulse Resp BP Pulse Ox 98.5 F 79 18 114/59 L 97 07/22/16 10:00 07/22/16 10:00 07/22/16 10:00 07/22/16 10:10 07/22/16 10:00 - Medications Medications: Current Medications Aspirin (Ecotrin) 81 mg PO DAILY VICTOR MANUEL PRN Reason: Protocol Last Admin: 07/22/16 10:09 Dose: 81 mg Atorvastatin Calcium (Lipitor) 80 mg PO DIN VICTOR MANUEL PRN Reason: Protocol Last Admin: 07/21/16 17:54 Dose: 80 mg Carvedilol (Coreg) 6.25 mg PO 0800,1800 VICTOR MANUEL PRN Reason: Protocol Last Admin: 07/22/16 08:19 Dose: 6.25 mg Colchicine (Colocrys) 0.6 mg PO DAILY VICTOR MANUEL PRN Reason: Protocol Last Admin: 07/22/16 10:09 Dose: 0.6 mg Docusate Sodium (Colace) 100 mg PO BID VICTOR MANUEL PRN Reason: Protocol Last Admin: 07/22/16 10:09 Dose: 100 mg Enoxaparin Sodium (Lovenox) 40 mg SC 0600 VICTOR MANUEL PRN Reason: Protocol Last Admin: 07/22/16 06:11 Dose: 40 mg Furosemide (Lasix) 40 mg PO DAILY VICTOR MANUEL PRN Reason: Protocol Last Admin: 07/22/16 10:10 Dose: 40 mg Gabapentin (Neurontin) 300 mg PO TID VICTOR MANUEL PRN Reason: Protocol Last Admin: 07/22/16 10:09 Dose: 300 mg Cefazolin Sodium (Ancef 1gm In Ns) 1 gm in 100 mls @ 100 mls/hr IVPB Q8 VICTOR MANUEL Last Admin: 07/22/16 06:10 Dose: 100 mls/hr Morphine Sulfate (Morphine) 4 mg IVP Q6H PRN; Protocol PRN Reason: Pain, severe (8-10) Last Admin: 07/21/16 05:55 Dose: 4 mg Polyethylene Glycol (Miralax) 17 gm PO BID VICTOR MANUEL PRN Reason: Protocol Last Admin: 07/22/16 10:08 Dose: 17 gm Prasugrel (Effient) 10 mg PO DAILY VICTOR MANUEL PRN Reason: Protocol Last Admin: 07/22/16 10:09 Dose: 10 mg - Constitutional Appears: Non-toxic, No Acute Distress, Chronically Ill - Head Exam Head Exam: ATRAUMATIC, NORMOCEPHALIC - Eye Exam Eye Exam: EOMI, PERRL Pupil Exam: NORMAL ACCOMODATION, PERRL - ENT Exam ENT Exam: Mucous Membranes Moist, Normal External Ear Exam, TM's Normal Bilaterally - Neck Exam Neck Exam: Full ROM, Normal Inspection - Respiratory Exam Respiratory Exam: Clear to Ausculation Bilateral, Rales, Rhonchi, Wheezes, NORMAL BREATHING PATTERN - Cardiovascular Exam Cardiovascular Exam: REGULAR RHYTHM, RRR, +S1, +S2 - GI/Abdominal Exam GI & Abdominal Exam: Soft, Normal Bowel Sounds. absent: Distended, Tenderness - Extremities Exam Additional comments: From last hospitalization: Right leg with +2-3 edema of the entire right leg. 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 No odor. Probes to bone. Sloughing of the skin on both legs. Right lower leg in contact cast now. Eczema of the lower left leg. Left knee aspiration done by Dr. Cabrera today. The patient with mild swelling to the left lower leg. +1 edema to the left foot. Distal tip of the right foot 2nd toe with dry gangrene. - Neurological Exam Neurological Exam: Alert, Awake, CN II-XII Intact, Oriented x3 Additional comments: decreased sensation of both lower extremities. Weak distal pulses. chronic venous stasis changes to both legs with right much worse than left. - Psychiatric Exam Psychiatric exam: Normal Affect, Normal Mood - Skin Additional comments: as above Assessment and Plan - Assessment and Plan (Free Text) Assessment: 56 yo male now presenting with left leg weakness and inability to put weight on this leg. He is still receiving Ancef for osteomyelitis of the right foot. Crystal analysis is showing calcium pyrophosphate crystals... possible pseudogout. No signs of new infection on physical exam. Will continue with Ancef IV for right foot osteomyelitis. Left knee aspirate cultures showing no new growth so far. My plan is to continue with Ancef alone at this point to complete 6 week course. Noted synovial fluid cell counts and predominance of WBC there. Left knee aspirate cultures are negative. Clinically improving. Supportive care. Thank you for allowing me to participate in the care of the patient, we will follow with you.
[2016-07-23] MEDS: ceFAZolin 1 gm in NS 1 GM/100 ML BAG IVPB SCH ×3 (06:10→22:21)
[2016-07-23] MEDS: Enoxaparin 40 mg Syringe SC SCH (06:14)
[2016-07-23] MEDS: POLYETHYLENE GLYCOL 3350 17 GM/Dose PACKET PO SCH ×2 (10:37→18:16)
--- NOTE | 2016-07-23 18:57 | CP.PCM.PN ---
Subjective - Date & Time of Evaluation Date of Evaluation: 07/23/16 Time of Evaluation: 16:45 - Subjective Subjective: Infectious Disease Follow Up: July 23, 2016 56 yo male with multiple hospitalizations at numerous facilities for his lower extremities. Patient with swelling and drainage from ulceration at the base of the third toe on the right foot. The patient denies fevers or chills. MRI was done recently showing possible abscess formation at the base of the third toe in the right foot and strong suspicion for osteomyelitis. The patient has severe swelling of the right foot. The patient was to go for PICC line placement and start on 6 week course of Ancef IV q8hrs for osteomyelitis and the possible abscess formation. During the past 3 days, he appears to be responding to the Ancef treatment. The patient is concerned about treatment after TRCU time as he does not have the money to support Home IV therapy after TRCU time is completed. For this hospitalization, he was discharged about 24 hours prior to admission for this hospitalization. He developed weakness of the left leg and was unable to place weight on it. He decided to come back [place] [facility] [place]. Mast aspirated the Left knee earlier in hospitalization. Cultures no growth. The patient with increased mobility of the left leg at the knee today. Final culture results from knee aspirate are negative. No new issues. Objective - Vital Signs/Intake and Output Vital Signs (last 24 hours): Temp Pulse Resp BP Pulse Ox 98.8 F 64 14 120/82 97 07/23/16 16:00 07/23/16 16:00 07/23/16 16:00 07/23/16 16:00 07/23/16 16:00 - Medications Medications: Current Medications Aspirin (Ecotrin) 81 mg PO DAILY VICTOR MANUEL PRN Reason: Protocol Last Admin: 07/23/16 10:37 Dose: 81 mg Atorvastatin Calcium (Lipitor) 80 mg PO DIN VICTOR MANUEL PRN Reason: Protocol Last Admin: 07/23/16 18:17 Dose: 80 mg Carvedilol (Coreg) 6.25 mg PO 0800,1800 VICTOR MANUEL PRN Reason: Protocol Last Admin: 07/23/16 18:17 Dose: 6.25 mg Colchicine (Colocrys) 0.6 mg PO DAILY VICTOR MANUEL PRN Reason: Protocol Last Admin: 07/23/16 10:37 Dose: 0.6 mg Docusate Sodium (Colace) 100 mg PO BID VICTOR MANUEL PRN Reason: Protocol Last Admin: 07/23/16 18:16 Dose: Not Given Enoxaparin Sodium (Lovenox) 40 mg SC 0600 VICTOR MANUEL PRN Reason: Protocol Last Admin: 07/23/16 06:14 Dose: 40 mg Furosemide (Lasix) 40 mg PO DAILY VICTOR MANUEL PRN Reason: Protocol Last Admin: 07/23/16 10:36 Dose: 40 mg Gabapentin (Neurontin) 300 mg PO TID VICTOR MANUEL PRN Reason: Protocol Last Admin: 07/23/16 18:17 Dose: 300 mg Cefazolin Sodium (Ancef 1gm In Ns) 1 gm in 100 mls @ 100 mls/hr IVPB Q8 VICTOR MANUEL Last Admin: 07/23/16 14:37 Dose: 100 mls/hr Polyethylene Glycol (Miralax) 17 gm PO BID VICTOR MANUEL PRN Reason: Protocol Last Admin: 07/23/16 18:16 Dose: Not Given Prasugrel (Effient) 10 mg PO DAILY VICTOR MANUEL PRN Reason: Protocol Last Admin: 07/23/16 10:37 Dose: 10 mg - Constitutional Appears: Non-toxic, No Acute Distress, Chronically Ill - Head Exam Head Exam: ATRAUMATIC, NORMOCEPHALIC - Eye Exam Eye Exam: EOMI, PERRL Pupil Exam: NORMAL ACCOMODATION, PERRL - ENT Exam ENT Exam: Mucous Membranes Moist, Normal External Ear Exam, TM's Normal Bilaterally - Neck Exam Neck Exam: Full ROM, Normal Inspection - Respiratory Exam Respiratory Exam: Clear to Ausculation Bilateral, NORMAL BREATHING PATTERN. absent: Rales, Rhonchi, Wheezes - Cardiovascular Exam Cardiovascular Exam: REGULAR RHYTHM, RRR, +S1, +S2 - GI/Abdominal Exam GI & Abdominal Exam: Soft, Normal Bowel Sounds. absent: Distended, Tenderness - Extremities Exam Additional comments: From last hospitalization: Right leg with +2-3 edema of the entire right leg. 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 No odor. Probes to bone. Sloughing of the skin on both legs. Right lower leg in contact cast now. Eczema of the lower left leg. Left knee aspiration done by Dr. Cabrera today. The patient with mild swelling to the left lower leg. +1 edema to the left foot. Distal tip of the right foot 2nd toe with dry gangrene. - Neurological Exam Neurological Exam: Alert, Awake, CN II-XII Intact, Oriented x3 Additional comments: decreased sensation of both lower extremities. Weak distal pulses. chronic venous stasis changes to both legs with right much worse than left. - Psychiatric Exam Psychiatric exam: Normal Affect, Normal Mood - Skin Additional comments: as above Assessment and Plan - Assessment and Plan (Free Text) Assessment: 56 yo male now presenting with left leg weakness and inability to put weight on this leg. He is still receiving Ancef for osteomyelitis of the right foot. Crystal analysis is showing calcium pyrophosphate crystals... possible pseudogout. No signs of new infection on physical exam. Will continue with Ancef IV for right foot osteomyelitis. Left knee aspirate cultures showing no new growth so far. My plan is to continue with Ancef alone at this point to complete 6 week course. Noted synovial fluid cell counts and predominance of WBC there. Left knee aspirate cultures are negative. Clinically improving. Supportive care. Thank you for allowing me to participate in the care of the patient, we will follow with you.
[2016-07-24] MEDS: ceFAZolin 1 gm in NS 1 GM/100 ML BAG IVPB SCH ×3 (06:25→22:27)
[2016-07-24] MEDS: Enoxaparin 40 mg Syringe SC SCH (06:26)
--- NOTE | 2016-07-24 07:54 | PN ---
DATE: 07/24/2016 SUBJECTIVE: The patient has no complaints of any chest pain, no shortness of breath, no headaches or dizziness. PHYSICAL EXAMINATION: VITAL SIGNS: Temperature is 98.8, pulse is 64, blood pressure 120/82, respirations 14. GENERAL: The patient comfortable, in no acute distress. HEENT: Anicteric sclerae. Moist mucosa. NECK: No JVD or adenopathy. CARDIAC: S1/S2. No murmurs. No rubs. Regular. RESPIRATORY: Clear to auscultation bilaterally. No wheezes, rales, or rhonchi. Good air entry. ABDOMEN: Bowel sounds are positive, soft, nontender, and nondistended. EXTREMITIES: No edema. Has 1+ pulses. ASSESSMENT: 1. Left knee pseudogout. 2. Right foot osteomyelitis - ulcer. 3. Obesity with a body mass index of 39. 4. Coronary artery disease. 5. Peripheral arterial disease. 6. Hypertension. PLAN: The patient is currently on cefazolin; this will be continued. The patient is on colchicine. He is going to continue with Lasix. He is on Effient. He is on Neurontin for his neuropathy. He i s being followed by Dr. Morrell and also by Dr. Stevenson from infectious disease. He had aspiration of his knee done by Dr. Mast. Hank Barroso MD cc: [id number] TT: 07/24/2016 07:54:08 Confirmation # [id number] Dictation # [id number] mn
[2016-07-24] MEDS: POLYETHYLENE GLYCOL 3350 17 GM/Dose PACKET PO SCH ×2 (09:49→17:40)
--- NOTE | 2016-07-24 15:41 | CP.PCM.PN ---
<Elizabeth Brown - Last Filed: 07/24/16 15:38> Subjective - Date & Time of Evaluation Date of Evaluation: 07/24/16 Time of Evaluation: 15:39 - Subjective Subjective: 56 year old male was seen resting comfortably at bedside with attending, Dr. Elise regarding ulceration to the plantar aspect of his 3rd metatarsal on the right foot with a fracture of the metatarsal. Patient is in no acute distress, AAOx3. Cast to right lower extremity is clean, dry, intact. He denies any pain to his right lower extremity. Denies n/v/f/c/sob/cp. Objective - Vital Signs/Intake and Output Vital Signs (last 24 hours): Temp Pulse Resp BP Pulse Ox 97.5 F L 62 16 119/62 99 07/24/16 10:00 07/24/16 10:00 07/24/16 10:00 07/24/16 10:00 07/24/16 10:00 - Medications Medications: Current Medications Aspirin (Ecotrin) 81 mg PO DAILY VICTOR MANUEL PRN Reason: Protocol Last Admin: 07/24/16 09:48 Dose: 81 mg Atorvastatin Calcium (Lipitor) 80 mg PO DIN VICTOR MANUEL PRN Reason: Protocol Last Admin: 07/23/16 18:17 Dose: 80 mg Carvedilol (Coreg) 6.25 mg PO 0800,1800 VICTOR MANUEL PRN Reason: Protocol Last Admin: 07/24/16 08:32 Dose: 6.25 mg Colchicine (Colocrys) 0.6 mg PO DAILY VICTOR MANUEL PRN Reason: Protocol Last Admin: 07/24/16 09:48 Dose: 0.6 mg Docusate Sodium (Colace) 100 mg PO BID VICTOR MANUEL PRN Reason: Protocol Last Admin: 07/24/16 09:49 Dose: Not Given Enoxaparin Sodium (Lovenox) 40 mg SC 0600 VICTOR MANUEL PRN Reason: Protocol Last Admin: 07/24/16 06:26 Dose: 40 mg Furosemide (Lasix) 40 mg PO DAILY VICTOR MANUEL PRN Reason: Protocol Last Admin: 07/24/16 09:48 Dose: 40 mg Gabapentin (Neurontin) 300 mg PO TID VICTOR MANUEL PRN Reason: Protocol Last Admin: 07/24/16 14:38 Dose: 300 mg Cefazolin Sodium (Ancef 1gm In Ns) 1 gm in 100 mls @ 100 mls/hr IVPB Q8 [facility] Last Admin: 07/24/16 14:38 Dose: 100 mls/hr Polyethylene Glycol (Miralax) 17 gm PO BID VICTOR MANUEL PRN Reason: Protocol Last Admin: 07/24/16 09:49 Dose: Not Given Prasugrel (Effient) 10 mg PO DAILY VICTOR MANUEL PRN Reason: Protocol Last Admin: 07/24/16 09:48 Dose: 10 mg - Constitutional Appears: Well, Non-toxic, No Acute Distress - Extremities Exam Additional comments: cast clean, dry, intact to RLE CFT< 3 seconds to all digits on RLE - Neurological Exam Neurological Exam: Alert, Awake, Oriented x3 - Psychiatric Exam Psychiatric exam: Normal Affect, Normal Mood Assessment and Plan - Assessment and Plan (Free Text) Assessment: 56 year old male with right foot ulceration and osteomyelitis Plan: patient examined and evaluated discussed with attending Dr. Morrell chart, labs, vitals reviewed continue iv abx per ID bi-valved cast to be kept clean, dry, intact to RLE podiatry will continue to follow patient while in house patient to follow up in [facility] upon discharge <Shameka Morrell - Last Filed: 08/13/16 16:34> Objective - Vital Signs/Intake and Output Vital Signs (last 24 hours): Temp Pulse Resp BP Pulse Ox 97.3 F L 71 18 101/65 98 07/28/16 10:00 07/28/16 10:00 07/28/16 10:00 07/28/16 10:00 07/26/16 16:00 Attending/Attestation - Attestation I have personally seen and examined this patient.: Yes I have fully participated in the care of the patient.: Yes I have reviewed all pertinent clinical information, including history, physical exam and plan: Yes
--- NOTE | 2016-07-24 19:19 | CP.PCM.PN ---
Subjective - Date & Time of Evaluation Date of Evaluation: 07/24/16 Time of Evaluation: 18:40 - Subjective Subjective: Infectious Disease Follow Up: July 24, 2016 56 yo male with multiple hospitalizations at numerous facilities for his lower extremities. Patient with swelling and drainage from ulceration at the base of the third toe on the right foot. The patient denies fevers or chills. MRI was done recently showing possible abscess formation at the base of the third toe in the right foot and strong suspicion for osteomyelitis. The patient has severe swelling of the right foot. The patient was to go for PICC line placement and start on 6 week course of Ancef IV q8hrs for osteomyelitis and the possible abscess formation. During the past 3 days, he appears to be responding to the Ancef treatment. The patient is concerned about treatment after TRCU time as he does not have the money to support Home IV therapy after TRCU time is completed. For this hospitalization, he was discharged about 24 hours prior to admission for this hospitalization. He developed weakness of the left leg and was unable to place weight on it. He decided to [place] [facility] [place] Mast aspirated the Left knee earlier in hospitalization. Cultures no growth. The patient with increased mobility of the left leg at the knee today. Final culture results from knee aspirate are negative. Objective - Vital Signs/Intake and Output Vital Signs (last 24 hours): Temp Pulse Resp BP Pulse Ox 98.3 F 65 14 121/75 98 07/24/16 16:00 07/24/16 16:00 07/24/16 16:00 07/24/16 16:00 07/24/16 16:00 - Medications Medications: Current Medications Aspirin (Ecotrin) 81 mg PO DAILY VICTOR MANUEL PRN Reason: Protocol Last Admin: 07/24/16 09:48 Dose: 81 mg Atorvastatin Calcium (Lipitor) 80 mg PO DIN VICTOR MANUEL PRN Reason: Protocol Last Admin: 07/24/16 17:41 Dose: 80 mg Carvedilol (Coreg) 6.25 mg PO 0800,1800 VICTOR MANUEL PRN Reason: Protocol Last Admin: 07/24/16 17:41 Dose: 6.25 mg Colchicine (Colocrys) 0.6 mg PO DAILY VICTOR MANUEL PRN Reason: Protocol Last Admin: 07/24/16 09:48 Dose: 0.6 mg Docusate Sodium (Colace) 100 mg PO BID VICTOR MANUEL PRN Reason: Protocol Last Admin: 07/24/16 17:40 Dose: Not Given Enoxaparin Sodium (Lovenox) 40 mg SC 0600 VICTOR MANUEL PRN Reason: Protocol Last Admin: 07/24/16 06:26 Dose: 40 mg Furosemide (Lasix) 40 mg PO DAILY VICTOR MANUEL PRN Reason: Protocol Last Admin: 07/24/16 09:48 Dose: 40 mg Gabapentin (Neurontin) 300 mg PO TID VICTOR MANUEL PRN Reason: Protocol Last Admin: 07/24/16 17:41 Dose: 300 mg Cefazolin Sodium (Ancef 1gm In Ns) 1 gm in 100 mls @ 100 mls/hr IVPB Q8 VICTOR MANUEL Last Admin: 07/24/16 14:38 Dose: 100 mls/hr Polyethylene Glycol (Miralax) 17 gm PO BID VICTOR MANUEL PRN Reason: Protocol Last Admin: 07/24/16 17:40 Dose: Not Given Prasugrel (Effient) 10 mg PO DAILY VICTOR MANUEL PRN Reason: Protocol Last Admin: 07/24/16 09:48 Dose: 10 mg - Constitutional Appears: Non-toxic, No Acute Distress, Chronically Ill - Head Exam Head Exam: ATRAUMATIC, NORMOCEPHALIC - Eye Exam Eye Exam: EOMI, PERRL Pupil Exam: NORMAL ACCOMODATION, PERRL - ENT Exam ENT Exam: Mucous Membranes Moist, Normal External Ear Exam, TM's Normal Bilaterally - Neck Exam Neck Exam: Full ROM, Normal Inspection - Respiratory Exam Respiratory Exam: Clear to Ausculation Bilateral, NORMAL BREATHING PATTERN. absent: Rales, Rhonchi, Wheezes - Cardiovascular Exam Cardiovascular Exam: REGULAR RHYTHM, RRR, +S1, +S2 - GI/Abdominal Exam GI & Abdominal Exam: Soft, Normal Bowel Sounds. absent: Distended, Tenderness - Extremities Exam Additional comments: From last hospitalization: Right leg with +2-3 edema of the entire right leg. 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 No odor. Probes to bone. Sloughing of the skin on both legs. Right lower leg in contact cast now. Eczema of the lower left leg. Left knee aspiration done by Dr. Cabrera today. The patient with mild swelling to the left lower leg. +1 edema to the left foot. Distal tip of the right foot 2nd toe with dry gangrene. - Neurological Exam Neurological Exam: Alert, Awake, CN II-XII Intact, Oriented x3 Additional comments: decreased sensation of both lower extremities. Weak distal pulses. chronic venous stasis changes to both legs with right much worse than left. - Psychiatric Exam Psychiatric exam: Normal Affect, Normal Mood - Skin Additional comments: As above. Assessment and Plan - Assessment and Plan (Free Text) Assessment: 56 yo male now presenting with left leg weakness and inability to put weight on this leg. He is still receiving Ancef for osteomyelitis of the right foot. Crystal analysis is showing calcium pyrophosphate crystals... possible pseudogout. No signs of new infection on physical exam. Will continue with Ancef IV for right foot osteomyelitis. Left knee aspirate cultures showing no new growth so far. My plan is to continue with Ancef alone at this point to complete 6 week course. Noted synovial fluid cell counts and predominance of WBC there. Left knee aspirate cultures are negative. Clinically improving slowly. Supportive care. Thank you for allowing me to participate in the care of the patient, we will follow with you.
--- NOTE | 2016-07-25 00:59 | PN ---
DATE: 07/23/2016 SUBJECTIVE: The patient is comfortable, no problems in ambulating and participating in physical therapy. No pain in the right leg. He has osteomyelitis of the right leg and currently on IV antibiotic as per ID. REVIEW OF SYSTEMS: As per HPI. A 12-point review of systems reviewed and negative. PHYSICAL EXAMINATION: GENERAL: Comfortable in bed, no acute distress. VITAL SIGNS: Temperature 98.7, heart rate is 80 per minute, blood pressure 130/ 70, respiratory rate 15 per minute. NECK: Normal. CHEST: Air entry present, equal bilateral. No added sound. CARDIOVASCULAR: Within normal limits. ABDOMEN: Soft, nontender, no hepatosplenomegaly. EXTREMITIES: No edema. 1+ pulsations present. MEDICATIONS: Reviewed. Labs : reviewed. ASSESSMENT: Right foot osteomyelitis, peripheral artery disease, coronary artery disease, hypertension, leukocytosis. PLAN: Continue IV antibiotic cefazolin as per ID. Pain is controlled on current medications. Continue colchicine for pseudogout. Continue Coreg 6.25 mg p.o. daily. Continue Neurontin 300 mg t.i.d. Continue MiraLax. Discussed with the staff nurse. Delores Espino MD cc: [id number] TT: 07/25/2016 00:58:48 Confirmation # [id number] Dictation # [id number] mn MTDD
--- NOTE | 2016-07-25 01:34 | PN ---
DATE: 07/22/2016 SUBJECTIVE: The patient is comfortable, walking around in the hallway and denies any pain. No headache. No nausea, no vomiting. REVIEW OF SYSTEMS: As per HPI. Rest of 12-point review of systems reviewed and negative. PHYSICAL EXAMINATION: GENERAL: Comfortable in bed, in no acute distress. VITAL SIGNS: Temperature 98.7, heart rate is 60 per minute, blood pressure 130/ 80, respiratory rate 15 per minute. HENT: Normal. CHEST: Air entry present, equal bilateral. No added sound. CARDIOVASCULAR: Regular, S1, S2 normal. No murmur, no gallop. ABDOMEN: Soft, nontender, no hepatosplenomegaly. EXTREMITIES: No edema. 1+ pulses. [employer]: no cranial nerve palsy, no sensory motor deficit Skin : no lesions LABORATORY DATA: Reviewed. MEDICATIONS: Reviewed. ASSESSMENT: Left knee swelling , right foot osteomyelitis, morbid obesity, coronary artery disease, peripheral arterial disease, hypertension, leukocytosis. PLAN: He is currently followed by ID and currently on cefazolin for osteomyelitis. He is also on colchicine. Continue the same. Continue the Lasix. He is on Neurontin for neuropathy. Podiatry is following. Infectious disease, Dr. Stevenson following. He had a knee aspiration done by Dr. Mast. No issues with pain. Participating in physical therapy. Delores Espino MD cc: [id number] TT: 07/25/2016 01:33:12 Confirmation # [id number] Dictation # [id number] jn MTDD
[2016-07-25] MEDS: ceFAZolin 1 gm in NS 1 GM/100 ML BAG IVPB SCH ×3 (06:19→22:44)
[2016-07-25] MEDS: Enoxaparin 40 mg Syringe SC SCH (06:19)
[2016-07-25] MEDS: POLYETHYLENE GLYCOL 3350 17 GM/Dose PACKET PO SCH ×2 (10:18→18:10)
--- NOTE | 2016-07-25 15:57 | CP.PCM.PN ---
Subjective - Date & Time of Evaluation Date of Evaluation: 07/25/16 Time of Evaluation: 15:54 - Subjective Subjective: Infectious Disease Follow Up: July 25, 2016 56 yo male with multiple hospitalizations at numerous facilities for his lower extremities. Patient with swelling and drainage from ulceration at the base of the third toe on the right foot. The patient denies fevers or chills. MRI was done recently showing possible abscess formation at the base of the third toe in the right foot and strong suspicion for osteomyelitis. The patient has severe swelling of the right foot. The patient was to go for PICC line placement and start on 6 week course of Ancef IV q8hrs for osteomyelitis and the possible abscess formation. During the past 3 days, he appears to be responding to the Ancef treatment. The patient is concerned about treatment after TRCU time as he does not have the money to support Home IV therapy after TRCU time is completed. For this hospitalization, he was discharged about 24 hours prior to admission for this hospitalization. He developed weakness of the left leg and was unable to place weight on it. He decided to come back to [facility]. Dr. Mast aspirated the Left knee earlier in hospitalization. Cultures no growth. The patient with increased mobility of the left leg at the knee today. Final culture results from knee aspirate are negative. No new issues. Objective - Vital Signs/Intake and Output Vital Signs (last 24 hours): Temp Pulse Resp BP Pulse Ox 98.2 F 68 16 114/70 100 07/25/16 10:00 07/25/16 10:00 07/25/16 10:00 07/25/16 10:19 07/25/16 10:00 - Medications Medications: Current Medications Aspirin (Ecotrin) 81 mg PO 0800 [facility] PRN Reason: Protocol Last Admin: 07/25/16 08:04 Dose: 81 mg Atorvastatin Calcium (Lipitor) 80 mg PO DIN [facility] PRN Reason: Protocol Last Admin: 07/24/16 17:41 Dose: 80 mg Carvedilol (Coreg) 6.25 mg PO 0800,1800 [facility] PRN Reason: Protocol Last Admin: 07/25/16 08:04 Dose: 6.25 mg Colchicine (Colocrys) 0.6 mg PO DAILY [facility] PRN Reason: Protocol Last Admin: 07/25/16 10:19 Dose: 0.6 mg Docusate Sodium (Colace) 100 mg PO BID [facility] PRN Reason: Protocol Last Admin: 07/25/16 10:18 Dose: Not Given Enoxaparin Sodium (Lovenox) 40 mg SC 0600 [facility] PRN Reason: Protocol Last Admin: 07/25/16 06:19 Dose: 40 mg Furosemide (Lasix) 40 mg PO DAILY [facility] PRN Reason: Protocol Last Admin: 07/25/16 10:19 Dose: 40 mg Gabapentin (Neurontin) 300 mg PO TID [facility] PRN Reason: Protocol Last Admin: 07/25/16 13:51 Dose: 300 mg Cefazolin Sodium (Ancef 1gm In Ns) 1 gm in 100 mls @ 100 mls/hr IVPB Q8 [facility] Last Admin: 07/25/16 13:51 Dose: 100 mls/hr Polyethylene Glycol (Miralax) 17 gm PO BID [facility] PRN Reason: Protocol Last Admin: 07/25/16 10:18 Dose: Not Given Prasugrel (Effient) 10 mg PO DAILY [facility] PRN Reason: Protocol Last Admin: 07/25/16 10:18 Dose: 10 mg - Constitutional Appears: Non-toxic, No Acute Distress, Chronically Ill - Head Exam Head Exam: ATRAUMATIC, NORMOCEPHALIC - Eye Exam Eye Exam: EOMI, PERRL Pupil Exam: NORMAL ACCOMODATION, PERRL - ENT Exam ENT Exam: Mucous Membranes Moist, Normal External Ear Exam, TM's Normal Bilaterally - Neck Exam Neck Exam: Full ROM, Normal Inspection - Respiratory Exam Respiratory Exam: Clear to Ausculation Bilateral, NORMAL BREATHING PATTERN. absent: Rales, Rhonchi, Wheezes - Cardiovascular Exam Cardiovascular Exam: REGULAR RHYTHM, RRR, +S1, +S2 - GI/Abdominal Exam GI & Abdominal Exam: Soft, Normal Bowel Sounds. absent: Distended, Tenderness - Extremities Exam Extremities Exam: Full ROM Additional comments: From last hospitalization: Right leg with +2-3 edema of the entire right leg. 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 No odor. Probes to bone. Sloughing of the skin on both legs. Right lower leg in contact cast now. Eczema of the lower left leg. Left knee aspiration done by Dr. Cabrera during last hospitalization. The patient with mild swelling to the left lower leg. +1 edema to the left foot. Distal tip of the right foot 2nd toe with dry gangrene. - Neurological Exam Neurological Exam: Alert, Awake, CN II-XII Intact, Oriented x3 Additional comments: decreased sensation of both lower extremities. Weak distal pulses. chronic venous stasis changes to both legs with right much worse than left. - Psychiatric Exam Psychiatric exam: Normal Affect, Normal Mood - Skin Additional comments: As above. Assessment and Plan - Assessment and Plan (Free Text) Assessment: 56 yo male now presenting with left leg weakness and inability to put weight on this leg. He is still receiving Ancef for osteomyelitis of the right foot. Crystal analysis is showing calcium pyrophosphate crystals... possible pseudogout. No signs of new infection on physical exam. Will continue with Ancef IV for right foot osteomyelitis. Left knee aspirate cultures showing no new growth so far. My plan is to continue with Ancef alone at this point to complete 6 week course. Noted synovial fluid cell counts and predominance of WBC there. Left knee aspirate cultures are negative. Clinically improving slowly. Supportive care. Thank you for allowing me to participate in the care of the patient, we will follow with you.
[2016-07-26] MEDS: ceFAZolin 1 gm in NS 1 GM/100 ML BAG IVPB SCH ×3 (06:03→21:48)
[2016-07-26] MEDS: Enoxaparin 40 mg Syringe SC SCH (06:04)
[2016-07-26] MEDS: POLYETHYLENE GLYCOL 3350 17 GM/Dose PACKET PO SCH ×2 (10:31→17:39)
--- NOTE | 2016-07-26 14:07 | CP.PCM.PN ---
<Yanely Trotter - Last Filed: 07/26/16 14:04> Subjective - Date & Time of Evaluation Date of Evaluation: 07/26/16 Time of Evaluation: 13:00 - Subjective Subjective: 56 year old male patient seen at bedside today with Dr. Morrell regarding ulceration of plantar aspect of right 3rd metatarsal w/ fx of this metatarsal. Pt seen resting comfortably at side of bed at time of visit. Denies any acute overnight events. Denies any pain or discomfort from the cast. Denies f/n/v/c/ sob/cp at this time. Objective - Vital Signs/Intake and Output Vital Signs (last 24 hours): Temp Pulse Resp BP Pulse Ox 98.2 F 73 16 133/81 100 07/26/16 10:00 07/26/16 10:00 07/26/16 10:00 07/26/16 10:30 07/26/16 10:00 - Medications Medications: Current Medications Aspirin (Ecotrin) 81 mg PO 0800 [facility] PRN Reason: Protocol Last Admin: 07/26/16 09:00 Dose: 81 mg Atorvastatin Calcium (Lipitor) 80 mg PO DIN [facility] PRN Reason: Protocol Last Admin: 07/25/16 18:11 Dose: 80 mg Carvedilol (Coreg) 6.25 mg PO 0800,1800 [facility] PRN Reason: Protocol Last Admin: 07/26/16 09:00 Dose: 6.25 mg Colchicine (Colocrys) 0.6 mg PO DAILY [facility] PRN Reason: Protocol Last Admin: 07/26/16 10:29 Dose: 0.6 mg Docusate Sodium (Colace) 100 mg PO BID [facility] PRN Reason: Protocol Last Admin: 07/26/16 10:29 Dose: Not Given Enoxaparin Sodium (Lovenox) 40 mg SC 0600 [facility] PRN Reason: Protocol Last Admin: 07/26/16 06:04 Dose: 40 mg Furosemide (Lasix) 40 mg PO DAILY [facility] PRN Reason: Protocol Last Admin: 07/26/16 10:30 Dose: 40 mg Gabapentin (Neurontin) 300 mg PO TID [facility] PRN Reason: Protocol Last Admin: 07/26/16 10:31 Dose: 300 mg Cefazolin Sodium (Ancef 1gm In Ns) 1 gm in 100 mls @ 100 mls/hr IVPB Q8 [facility] Last Admin: 07/26/16 06:03 Dose: 100 mls/hr Polyethylene Glycol (Miralax) 17 gm PO BID [facility] PRN Reason: Protocol Last Admin: 07/26/16 10:31 Dose: Not Given Prasugrel (Effient) 10 mg PO DAILY [facility] PRN Reason: Protocol Last Admin: 07/26/16 10:30 Dose: 10 mg - Constitutional Appears: Non-toxic, No Acute Distress - Extremities Exam Extremities Exam: absent: Calf Tenderness Additional comments: RLE exam: Cast appears c/d/i, cap refill < 3 sec to all digits. - Neurological Exam Neurological Exam: Alert, Awake, Oriented x3 - Psychiatric Exam Psychiatric exam: Normal Affect, Normal Mood Assessment and Plan - Assessment and Plan (Free Text) Assessment: 56 year old male with right foot ulceration and osteomyelitis Plan: -Pt S&E at bedside with Dr. Morrell present -Chart, labs vitals reviewed: afebrile; ESR and CRP both elevated (33 and >15 respectively) -C/w course of IV abx per ID -Bi-valved cast to be kept c/d/i to the RLE -Podiatry will continue to follow while he remains in house -He is to f/u at the wound care center after discharge <Shameka Morrell - Last Filed: 08/13/16 16:37> Objective - Vital Signs/Intake and Output Vital Signs (last 24 hours): Temp Pulse Resp BP Pulse Ox 97.3 F L 71 18 101/65 98 07/28/16 10:00 07/28/16 10:00 07/28/16 10:00 07/28/16 10:00 07/26/16 16:00 Attending/Attestation - Attestation I have personally seen and examined this patient.: Yes I have fully participated in the care of the patient.: Yes I have reviewed all pertinent clinical information, including history, physical exam and plan: Yes
--- NOTE | 2016-07-26 15:22 | CP.PCM.PN ---
Subjective - Date & Time of Evaluation Date of Evaluation: 07/26/16 Time of Evaluation: 14:00 - Subjective Subjective: Infectious Disease Follow Up: July 26, 2016 56 yo male with multiple hospitalizations at numerous facilities for his lower extremities. Patient with swelling and drainage from ulceration at the base of the third toe on the right foot. The patient denies fevers or chills. MRI was done recently showing possible abscess formation at the base of the third toe in the right foot and strong suspicion for osteomyelitis. The patient has severe swelling of the right foot. The patient was to go for PICC line placement and start on 6 week course of Ancef IV q8hrs for osteomyelitis and the possible abscess formation. During the past 3 days, he appears to be responding to the Ancef treatment. The patient is concerned about treatment after TRCU time as he does not have the money to support Home IV therapy after TRCU time is completed. For this hospitalization, he was discharged about 24 hours prior to admission for this hospitalization. He developed weakness of the left leg and was unable to place weight on it. He decided to come back to [facility]. Dr. Mast aspirated the Left knee earlier in hospitalization. Cultures no growth. The patient with increased mobility of the left leg at the knee. Final culture results from knee aspirate are negative. No new issues. Receiving IV antibiotics. Objective - Vital Signs/Intake and Output Vital Signs (last 24 hours): Temp Pulse Resp BP Pulse Ox 98.2 F 73 16 133/81 100 07/26/16 10:00 07/26/16 10:00 07/26/16 10:00 07/26/16 10:30 07/26/16 10:00 - Medications Medications: Current Medications Aspirin (Ecotrin) 81 mg PO 0800 [facility] PRN Reason: Protocol Last Admin: 07/26/16 09:00 Dose: 81 mg Atorvastatin Calcium (Lipitor) 80 mg PO DIN [facility] PRN Reason: Protocol Last Admin: 07/25/16 18:11 Dose: 80 mg Carvedilol (Coreg) 6.25 mg PO 0800,1800 [facility] PRN Reason: Protocol Last Admin: 07/26/16 09:00 Dose: 6.25 mg Colchicine (Colocrys) 0.6 mg PO DAILY [facility] PRN Reason: Protocol Last Admin: 07/26/16 10:29 Dose: 0.6 mg Docusate Sodium (Colace) 100 mg PO BID [facility] PRN Reason: Protocol Last Admin: 07/26/16 10:29 Dose: Not Given Enoxaparin Sodium (Lovenox) 40 mg SC 0600 [facility] PRN Reason: Protocol Last Admin: 07/26/16 06:04 Dose: 40 mg Furosemide (Lasix) 40 mg PO DAILY [facility] PRN Reason: Protocol Last Admin: 07/26/16 10:30 Dose: 40 mg Gabapentin (Neurontin) 300 mg PO TID [facility] PRN Reason: Protocol Last Admin: 07/26/16 14:25 Dose: 300 mg Cefazolin Sodium (Ancef 1gm In Ns) 1 gm in 100 mls @ 100 mls/hr IVPB Q8 [facility] Last Admin: 07/26/16 14:24 Dose: 100 mls/hr Polyethylene Glycol (Miralax) 17 gm PO BID [facility] PRN Reason: Protocol Last Admin: 07/26/16 10:31 Dose: Not Given Prasugrel (Effient) 10 mg PO DAILY [facility] PRN Reason: Protocol Last Admin: 07/26/16 10:30 Dose: 10 mg - Constitutional Appears: Non-toxic, No Acute Distress, Chronically Ill - Head Exam Head Exam: ATRAUMATIC, NORMOCEPHALIC - Eye Exam Eye Exam: EOMI, PERRL Pupil Exam: NORMAL ACCOMODATION, PERRL - ENT Exam ENT Exam: Mucous Membranes Moist, Normal External Ear Exam, TM's Normal Bilaterally - Neck Exam Neck Exam: Full ROM, Normal Inspection - Respiratory Exam Respiratory Exam: Clear to Ausculation Bilateral, NORMAL BREATHING PATTERN. absent: Rales, Rhonchi, Wheezes - Cardiovascular Exam Cardiovascular Exam: REGULAR RHYTHM, RRR, +S1, +S2 - GI/Abdominal Exam GI & Abdominal Exam: Soft, Normal Bowel Sounds. absent: Distended, Tenderness - Extremities Exam Extremities Exam: Full ROM Additional comments: From last hospitalization: Right leg with +2-3 edema of the entire right leg. 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 No odor. Probes to bone. Sloughing of the skin on both legs. Right lower leg in contact cast now. Eczema of the lower left leg. Left knee aspiration done by Dr. Cabrera during last hospitalization. The patient with mild swelling to the left lower leg. +1 edema to the left foot. Distal tip of the right foot 2nd toe with dry gangrene. - Neurological Exam Neurological Exam: Alert, Awake, CN II-XII Intact, Oriented x3 Additional comments: decreased sensation of both lower extremities. Weak distal pulses. chronic venous stasis changes to both legs with right much worse than left. - Psychiatric Exam Psychiatric exam: Normal Affect, Normal Mood - Skin Additional comments: As above Assessment and Plan - Assessment and Plan (Free Text) Assessment: 56 yo male now presenting with left leg weakness and inability to put weight on this leg. He is still receiving Ancef for osteomyelitis of the right foot. Crystal analysis is showing calcium pyrophosphate crystals... possible pseudogout. No signs of new infection on physical exam. Will continue with Ancef IV for right foot osteomyelitis. Left knee aspirate cultures showing no new growth so far. My plan is to continue with Ancef alone at this point to complete 6 week course. Noted synovial fluid cell counts and predominance of WBC there. Left knee aspirate cultures are negative. Clinically improving slowly. Continuing with IV antibiotics. Supportive care. Thank you for allowing me to participate in the care of the patient, we will follow with you.
[2016-07-26 17:02] VITALS: RESP 18; O2SAT 98
--- NOTE | 2016-07-26 21:49 | DS ---
This is a 56-year-old male who had come into the hospital, was found to have left knee pseudogout; he had gout that was drained. He had improvement of his symptoms. He has been on transitional care un it to help with ambulation. He has no complaints of any headaches or dizziness, no nausea, no vomiti ng. He says he feels better. PHYSICAL EXAMINATION: VITAL SIGNS: Temperature is 98.4, pulse of 66, blood pressure 153/83, respirations 20. GENERAL: The patient comfortable, in no acute distress. HEENT: Anicteric sclerae. Moist mucosa. NECK: No JVD or adenopathy. CARDIAC: S1/S2. No murmurs. No rubs. Regular. RESPIRATORY: Clear to auscultation bilaterally. No wheezes, rales, or rhonchi. Good air entry. ABDOMEN: Bowel sounds are positive, soft, nontender, and nondistended. EXTREMITIES: No edema. Has 1+ pulses. ASSESSMENT: 1. Left knee pseudogout. 2. Right foot osteomyelitis/ulcer. 3. Obesity with a body mass index of 39. 4. Coronary artery disease. 5. Peripheral arterial disease. 6. Hypertension. PLAN: The patient is on colchicine for his pseudogout. He is on Colace. He is going to continue wi aspirin. The patient is on Lasix. He is going to be on MiraLax for constipation. He is on Lipit or for dyslipidemia. He is going to continue with his antibiotics at home. He needs to finish a 6-w [place] course. Hank Barroso MD cc: [id number] TT: 07/26/2016 21:48:40 tiffani
--- NOTE | 2016-07-27 19:24 | CP.PCM.PCO ---
Physician Communication Note - Physician Communication Note Physician Communication Note: written note in chart for today due to technical difficulties with EMR
[2016-07-27] MEDS: ceFAZolin 1 gm in NS 1 GM/100 ML BAG IVPB SCH (22:01)
[2016-07-28] MEDS: ceFAZolin 1 gm in NS 1 GM/100 ML BAG IVPB SCH (05:23)
[2016-07-28] MEDS: Enoxaparin 40 mg Syringe SC SCH (05:23)
[2016-07-28] MEDS: POLYETHYLENE GLYCOL 3350 17 GM/Dose PACKET PO SCH (09:52)
[2016-07-28 11:04] VITALS: BP 101/65; PULSE 71; TEMP 97.3
--- NOTE | 2016-07-31 09:10 | PN ---
DATE: 07/28/2016 SUBJECTIVE: A 56-year-old male seen at bedside today for continued evaluation and management of a f ull thickness ulceration on the plantar aspect of his right third metatarsal. The patient is seen wi th his cast intact. He denies any discomfort, denies any shortness of breath. The patient states he has been undergoing physical therapy with his cast and has not had any complaints. VITAL SIGNS: Reveal a temperature of 98.9, blood pressure of 148/78, pulse rate of 88 and a respirat ory rate of 20. LABORATORY DATA: Most recent laboratory findings reveal a white count of 6.4, hemoglobin of 10.4, he matocrit of 32.3, platelet count of 248. OBJECTIVE: The patient's cast is in place and fully intact. There are no cracks. There is no evide nce of excessive wear and tear. There is capillary filling time within normal limits noted on all to es. ASSESSMENT: Full thickness ulceration to the right foot with total contact cast intact. PLAN: The patient was told he will be discharged and he will follow up Sunday at the wound center wh ere his cast will be changed. The patient was told to remain off of his feet as much as possible whe n home and if he experiences fever, chills, nausea or vomiting he should return to the Emergency Room immediately. The patient agreed. Jamie Barton DPM cc: [id number] TT: 07/28/2016 17:30:33 Confirmation # [id number] Dictation # [id number] tiffani
--- NOTE | 2016-08-10 08:30 | DS ---
Please see the note that was dictated on 07/26/2016 for details. The patient had pseudogout of the le ft knee that was treated. He is getting physical therapy. The patient is going to continue his home IV antibiotics. CONDITION: Stable. ACTIVITIES: Increase as tolerated. Hank Barroso MD cc: [id number] TT: 08/10/2016 08:30:03 jn
== END 2016-07-28 13:46 | disposition home or self-care (01) | DRG 541 ==
LOC: TRCU 14:59
PROVIDERS: ADMIT Internal Medicine Nephrology; ATTEND Internal Medicine Nephrology
PROC: F07Z9FZ Gait Training/Functional Ambulation Treatment using Assistive, Adaptive, Supportive or Protective Equipment (ICD-10-PCS; principal; 2016-07-19)
PROC: F07M6ZZ Therapeutic Exercise Treatment of Musculoskeletal System - Whole Body (ICD-10-PCS; 2016-07-19)
PROC: F08Z1ZZ Dressing Techniques Treatment (ICD-10-PCS; 2016-07-22)
PROC: F08Z2ZZ Grooming/Personal Hygiene Treatment (ICD-10-PCS; 2016-07-22)
DX: M86.8X7 Other osteomyelitis, ankle and foot (principal); I10 Essential (primary) hypertension; E66.01 Morbid (severe) obesity due to excess calories; D72.829 Elevated white blood cell count, unspecified; S92.331A Displaced fracture of third metatarsal bone, right foot, initial encounter for closed fracture; L97.519 Non-pressure chronic ulcer of other part of right foot with unspecified severity; Z68.39 Body mass index [BMI] 39.0-39.9, adult; I25.10 Atherosclerotic heart disease of native coronary artery without angina pectoris; I73.9 Peripheral vascular disease, unspecified; I25.2 Old myocardial infarction; I89.0 Lymphedema, not elsewhere classified; Z87.891 Personal history of nicotine dependence; M11.262 Other chondrocalcinosis, left knee; K59.00 Constipation, unspecified

== ENCOUNTER 2016-09-15 13:26 | Emergency (ER) | payer BC ==
[2016-09-15 13:26] VITALS: BMI 39.8
[2016-09-15 13:52] VITALS: RESP 18; TEMP 98.9
[2016-09-15 15:15] LABS: BASO # 0.03 K/mm3 (0.0-2.0); BASO % 0.5 % (0.0-3.0); EOS # 0.4 (0.0-0.7); EOS % 6.9 % (1.5-5.0); GRAN % 68.7 % (50.0-68.0); HEMOGLOBIN 12.1 gm/dL (14.0-18.0); LYMPH # 1.1 (1.2-3.4); LYMPH % 17.8 % (22.0-35.0); MEAN CELL VOLUME 81.9 fL (80.0-105.0); MEAN CORPUSCULAR HEMOGLOBIN 26.7 pg (25.0-35.0); MEAN CORPUSCULAR HGB CONC 32.5 g/dl (31.0-37.0); MEAN PLATELET VOLUME 10.4 fl (7.0-11.0); MONO # 0.4 (0.1-0.6); MONO % 6.1 % (1.0-6.0); PLATELET COUNT 195 10^3/uL (120.0-450.0); RBC 4.54 10^6/uL (3.5-6.1); RED CELL DISTRIBUTION WIDTH 18.1 % (11.5-14.5); WHITE BLOOD COUNT 6.3 10^3/ul (4.5-11.0)
--- NOTE | 2016-09-15 15:17 | ED PDOC ---
Arrival/HPI - General Chief Complaint: Lower Extremity Problem/Injury Time Seen by Provider: 09/15/16 14:14 - History of Present Illness Narrative History of Present Illness (Text): 09/15/16 15:15 Patient is a 56 Year old M with hx of chronic ulcer to R leg, who follows with Dr. Morrell, presenting with leg swelling. Patient reports that R leg became swollen yesterday. Denies trauma. Denies fever. Past Medical History - Infectious Disease Hx of Infectious Diseases: None - Tetanus Immunization Tetanus Immunization: Unknown - Cardiac Hx Cardiac Disorders: Yes Hx Hypertension: Yes Other/Comment: cardiac stent x 3, - Pulmonary Hx Respiratory Disorders: No - Neurological Hx Neurological Disorder: Yes (Neuropathy both lower legs) - HEENT Hx HEENT Disorder: (WEARS RX GLASSES) - Renal Hx Renal Disorder: No - Endocrine/Metabolic Hx Endocrine Disorders: No - Hematological/Oncological Hx Blood Disorders: No Other/Comment: lymphedema to right leg - Integumentary Other/Comment: Right ball of foot stasis ulcer - Musculoskeletal/Rheumatological Hx Falls: Yes Hx Fractures: Yes Hx Osteomyelitis: Yes Other/Comment: Pseudogout left knee, rt foot ulcer. neuropathy - Gastrointestinal Hx Gastrointestinal Disorders: No - Genitourinary/Gynecological Hx Genitourinary Disorders: No Hx Reproductive Disorders: No - Psychiatric Hx Psychophysiologic Disorder: Yes (ETOH occ. - no alcohol since 2016) Hx Substance Use: No - Past Surgical History Past Surgical History: No Previous - Surgical History Hx Cardiac Catheterization: Yes Hx Coronary Stent: Yes - Anesthesia Hx Anesthesia: Yes Hx Anesthesia Reactions: No - Suicidal Assessment Feels Threatened In Home Enviroment: No Family/Social History Family/Social History: No Known Family HX Smoking Status: Former Smoker Hx Alcohol Use: Yes (no alcohol since Mar 2016) Hx Substance Use: No Hx Substance Use Treatment: No Allergies/Home Meds Allergies/Adverse Reactions: Allergies No Known Allergies Allergy (Verified 09/15/16 13:52) Home Medications: Home Meds Medication Instructions Recorded Confirmed Aspirin [Ecotrin] 81 mg PO DAILY 07/03/16 09/15/16 Carvedilol [Coreg] 6.25 mg PO BID 07/03/16 09/15/16 Furosemide [Lasix] 40 mg PO DAILY 07/03/16 09/15/16 Gabapentin [Neurontin] 300 mg PO TID 07/03/16 09/15/16 Potassium Chloride [Klor-Con] 20 meq PO BID 07/03/16 09/15/16 Prasugrel [Effient] 10 mg PO DAILY 07/03/16 09/15/16 Rosuvastatin Calcium 20 mg PO HS 07/03/16 09/15/16 Tramadol HCl [Ultram] 50 mg PO Q6H PRN 07/03/16 09/15/16 Valsartan [Diovan] 160 mg PO DAILY 07/03/16 09/15/16 oxyCODONE/Acetaminophen [Percocet 325 tab PO DAILY 07/03/16 09/15/16 5/325 mg Tab] Metolazone 5 mg PO DAILY 07/13/16 09/15/16 Amoxicillin [Amoxil 500 mg Cap] 500 mg PO BID 09/15/16 09/15/16 Review of Systems - Review of Systems Constitutional: absent: Fatigue, Weight Change, Fevers Respiratory: absent: SOB, Cough, Sputum, Wheezing Cardiovascular: Edema, Calf Pain. absent: Chest Pain, Orthopnea, Syncope Gastrointestinal: absent: Abdominal Pain, Constipation, Diarrhea, Nausea, Vomiting Genitourinary Male: absent: Dysuria Neurological: absent: Headache Physical Exam Vital Signs Temp Pulse Resp BP Pulse Ox 09/15/16 15:23 89 18 130/70 98 09/15/16 13:45 98.9 F 90 18 132/77 96 Temperature: Afebrile Blood Pressure: Normal Pulse: Regular Respiratory Rate: Normal Appearance: Positive for: Well-Appearing, Non-Toxic, Comfortable Pain Distress: None Mental Status: Positive for: Alert and Oriented X 3 - Systems Exam Head: Present: Atraumatic, Normocephalic Pupils: Present: PERRL Extroacular Muscles: Present: EOMI Conjunctiva: Present: Normal Mouth: Present: Moist Mucous Membranes Respiratory/Chest: Present: Clear to Auscultation, Good Air Exchange. No: Respiratory Distress, Accessory Muscle Use Cardiovascular: Present: Regular Rate and Rhythm, Normal S1, S2. No: Murmurs Abdomen: No: Tenderness, Distention Upper Extremity: Present: Normal Inspection Lower Extremity: Present: Other (swelling and calf tenderness to RLE. No warmth or erythema. Distal pulses intact. Chronic wound to plantar surface of R foot. L leg WNL) Neurological: Present: GCS=15, CN II-XII Intact, Speech Normal Medical Decision Making ED Course and Treatment: 09/15/16 15:26 Ultrasound negative for DVT. Labs grossly normal. 09/15/16 15:[address] Morrell's partner and he recommends mi wrap x 2, elevation, and follow-up on sunday09/15/16 15:[address] Lane. He agrees with above and recommends additional lasix dose. Patient has been evaluated by vascular surgery for lymphadema and venous insufficiency and patient now admits that he has hx of these episodes. Dressing placed on patient. Patient refusing additional lasix as she does not want to "pee all the way home." Patient is frustrated that we are unable to provide additional solutions and reports that he has been to multiple hospitals with no other recommendations for treatment other than elevation. Patient again encouraged to follow-up as outpatient and instructed to get repeat u/s in 2 days if no improvement. 09/15/16 17:49 - Lab Interpretations Lab Results: 09/15/16 15:00 09/15/16 15:00 Lab Results 09/15/16 15:00: Sodium 140, Potassium 3.8, Chloride 103, Carbon Dioxide 25, Anion Gap 16, BUN 29 H, Creatinine 1.2, Est GFR ( Amer) > 60, Est GFR ( Non-Af Amer) > 60, Random Glucose 89, Calcium 9.8, Total Bilirubin 0.5, AST 25, ALT 27, Alkaline Phosphatase 84, Total Protein 7.9, Albumin 4.2, Globulin 3.6, Albumin/Globulin Ratio 1.2 09/15/16 15:00: WBC 6.3, RBC 4.54, Hgb 12.1 L, Hct 37.2 L, MCV 81.9, MCH 26.7, MCHC 32.5, RDW 18.1 H, Plt Count 195, MPV 10.4, Gran % 68.7 H, Lymph % (Auto) 17.8 L, [place] % (Auto) 6.1 H, Eos % (Auto) 6.9 H, Baso % (Auto) 0.5, Gran # 4.30 , Lymph # 1.1 L, [place] # 0.4, Eos # 0.4, Baso # 0.03 - RAD Interpretation Radiology Orders: 09/15/16 14:26 DUPLEX LOWER EXTRM VEIN RIGHT [US] Stat Disposition/Present on Arrival - Present on Arrival Any Indicators Present on Arrival: No History of DVT/PE: No History of Uncontrolled Diabetes: No Urinary Catheter: No History of Decub. Ulcer: No History Surgical Site Infection Following: None - Disposition Have Diagnosis and Disposition been Completed?: Yes Diagnosis: Leg swelling Disposition: HOME/ ROUTINE Disposition Time: 15:57 Patient Plan: Discharge Condition: GOOD Discharge Instructions (ExitCare): Leg Edema (ED) Additional Instructions: Follow up with PMD within 2 days. Return to emergency department if condition worsens. Follow-up with Dr. Morrell on Sunday. Keep leg wrapped and elevated. Take additional lasix dose tonight. Referrals: Hank Barroso MD [Primary Care Provider] - Follow up with primary
[2016-09-15 15:23] VITALS: BP 130/70; PULSE 89; O2SAT 98
[2016-09-15 15:24] LABS: ALB/GLOB RATIO 1.2 (1.1-1.8); ALBUMIN 4.2 g/dL (3.0-4.8); ALT/SGPT 27 U/L (7-56); AST/SGOT 25 U/L (15-59); BLOOD UREA NITROGEN 29 mg/dL (7-21); CALCIUM 9.8 mg/dL (8.4-10.5); GFR AFRICAN-AMERICAN > 60; GFR NON-AFRICAN AMERICAN > 60
--- NOTE | 2016-09-15 17:08 | US ---
PROCEDURE: Right lower extremity venous US HISTORY: Leg pain and swelling. Evaluate for DVT. PHYSICIAN(S): J Luis Salazar M.D. TECHNIQUE: Duplex sonography and color-flow Doppler with graded compression were used to evaluate the deep venous system of the right lower extremity. The exam is limited by body habitus and edema. FINDINGS: The visualized deep venous system of the right lower extremity is sonographically normal and compressible. Normal waveforms and augmentation are seen. There is no sonographic evidence for deep venous thrombosis in the visualized segments of the right lower extremity. IMPRESSION: 1. No sonographic evidence for deep venous thrombosis in the visualized segments of the right lower extremity. 2. Limited study.
== END 2016-09-15 16:15 | disposition home or self-care (01) ==
LOC: ED 13:26
DX: M79.89 Other specified soft tissue disorders (principal); I10 Essential (primary) hypertension; Z87.891 Personal history of nicotine dependence

== ENCOUNTER 2017-02-06 09:58 | Emergency (ER) | payer BC ==
[2017-02-06 10:00] VITALS: BMI 32.5
[2017-02-06 10:09] VITALS: TEMP 98.7
--- NOTE | 2017-02-06 10:22 | ED PDOC ---
Arrival/HPI - General Chief Complaint: Back Pain Time Seen by Provider: 02/06/17 10:09 Historian: Patient - History of Present Illness Time/Duration: Other (3 days) Symptom Onset: Sudden Symptom Course: Worsening Quality: Aching Severity Level: Severe Associated Symptoms (Text): 02/06/17 10:19 Patient reports a violent sneeze 3 days ago with an injury to his right anterior lateral lower ribs. He reports that it feels like someone hit him with a baseball bat. No abdominal pain nausea or vomiting. No back pain. No dyspnea. Pain is worse with certain movements palpation and deep breathing. He takes Percocet and Ultram with no improvement. Past Medical History - Infectious Disease Hx of Infectious Diseases: None - Tetanus Immunization Tetanus Immunization: Unknown - Cardiac Hx SD: Yes (x 3 stents) Hx Hypertension: Yes Hx Pacemaker: No Hx Peripheral Edema: Yes Hx Peripheral Vascular Disease: Yes - Pulmonary Hx Respiratory Disorders: No - Neurological Hx Paralysis: No - HEENT Hx HEENT Disorder: (WEARS RX GLASSES) - Renal Hx Renal Disorder: No - Endocrine/Metabolic Hx Endocrine Disorders: No - Hematological/Oncological Hx Blood Transfusions: No - Integumentary Other/Comment: Right ball of foot stasis ulcer. R foot ulcer - wound center with Dr Morrell - Musculoskeletal/Rheumatological Hx Arthritis: Yes - Gastrointestinal Hx Gastrointestinal Disorders: No - Genitourinary/Gynecological Hx Genitourinary Disorders: No Hx Reproductive Disorders: No - Psychiatric Hx Psychophysiologic Disorder: Yes (ETOH occ. - no alcohol since 2016) Hx Substance Use: No - Past Surgical History Past Surgical History: No Previous - Surgical History Hx Cardiac Catheterization: Yes Other/Comment: bone biopsy - Anesthesia Hx Anesthesia: Yes Hx Anesthesia Reactions: No Hx Malignant Hyperthermia: No - Suicidal Assessment Feels Threatened In Home Enviroment: No Family/Social History - Physician Review Nursing Documentation Reviewed: Yes Family/Social History: Unknown Family HX Smoking Status: Former Smoker (Quit smoking 40 years ago) Hx Alcohol Use: Yes (ON OCCASION) Frequency of alcohol use: Socially Hx Substance Use: No Hx Substance Use Treatment: No Allergies/Home Meds Allergies/Adverse Reactions: Allergies No Known Allergies Allergy (Verified 09/15/16 13:52) Home Medications: Home Meds Medication Instructions Recorded Confirmed Aspirin [Ecotrin] 81 mg PO DAILY 07/03/16 02/06/17 Carvedilol [Coreg] 6.25 mg PO BID 07/03/16 02/06/17 Gabapentin [Neurontin] 300 mg PO TID 07/03/16 02/06/17 Potassium Chloride [Klor-Con] 20 meq PO BID 07/03/16 02/06/17 Prasugrel [Effient] 10 mg PO DAILY 07/03/16 02/06/17 Rosuvastatin Calcium 20 mg PO HS 07/03/16 02/06/17 Tramadol HCl [Ultram] 50 mg PO Q6H PRN 07/03/16 02/06/17 Valsartan [Diovan] 160 mg PO DAILY 07/03/16 02/06/17 oxyCODONE/Acetaminophen [Percocet 1 tab PO DAILY PRN 07/03/16 02/06/17 5/325 mg Tab] Metolazone 5 mg PO DAILY 07/13/16 02/06/17 Review of Systems - Physician Review All systems were reviewed & negative as marked: Yes - Review of Systems Constitutional: Normal Respiratory: absent: SOB, Cough, Wheezing Cardiovascular: absent: Chest Pain, Palpitations, Syncope Gastrointestinal: absent: Abdominal Pain, Nausea, Vomiting Neurological: Normal Physical Exam Vital Signs Temp Pulse Resp BP Pulse Ox 02/06/17 10:08 98.7 F 65 18 164/93 H 98 Temperature: Afebrile Blood Pressure: Hypertensive Pulse: Regular Respiratory Rate: Normal Appearance: Positive for: Well-Appearing, Non-Toxic, Uncomfortable, Other ( Morbidly obese) Pain Distress: Mild Mental Status: Positive for: Alert and Oriented X 3 - Systems Exam Head: Present: Atraumatic, Normocephalic Neck: Present: Normal Range of Motion. No: MIDLINE TENDERNESS, Paraspinal Tenderness Respiratory/Chest: Present: Clear to Auscultation, Good Air Exchange, Decreased Breath Sounds, Tender to Palpation (Right anterior lateral lower ribs tender to palpation which reproduces the pain. No crepitus or skin changes). No: Respiratory Distress, Accessory Muscle Use Cardiovascular: Present: Regular Rate and Rhythm, Normal S1, S2. No: Murmurs Abdomen: Present: Normal Bowel Sounds. No: Tenderness, Distention, Peritoneal Signs, Rebound, Guarding Skin: Present: Warm, Dry, Normal Color. No: Rashes Psychiatric: Present: Alert, Oriented x 3, Normal Insight, Normal Concentration Medical Decision Making ED Course and Treatment: 02/06/17 11:25 Patient has narcotic pain medication at home. - RAD Interpretation Radiology Orders: 02/06/17 10:18 RIBS RIGHT & PA CHEST [RAD] Stat Right ribs and chest one view shows no infiltrate or effusion or pneumothorax. No fracture or dislocation. There is cardiomegaly. Senior Systems Programmer: ED Physician - Medication Orders Current Medication Orders: Discontinued Medications Ketorolac Tromethamine (Toradol) 60 mg IM ONCE ONE Stop: 02/06/17 10:19 Last Admin: 02/06/17 11:20 Dose: Disposition/Present on Arrival - Present on Arrival Any Indicators Present on Arrival: No History of DVT/PE: No History of Uncontrolled Diabetes: No Urinary Catheter: No History of Decub. Ulcer: No History Surgical Site Infection Following: None - Disposition Have Diagnosis and Disposition been Completed?: Yes Diagnosis: Chest wall muscle strain Disposition: HOME/ ROUTINE Disposition Time: 11:26 Patient Plan: Discharge Condition: GOOD Discharge Instructions (ExitCare): Chest Wall Pain (ED) Additional Instructions: Narcotic pain medication from home. Rest and moist heat. Follow-up with PMD. Follow up in ER as needed. Forms: Recorded [employer] (Polish)
--- NOTE | 2017-02-06 11:38 | RAD ---
PROCEDURE: Radiographs of the Chest and Right Ribs. HISTORY: trauma COMPARISON: None available. TECHNIQUE: Frontal radiograph of the chest and multiple oblique radiographs of the right ribs were obtained. FINDINGS: RIGHT RIBS: No fracture or focal lesion visualized. LUNGS: Clear. PLEURA: No pneumothorax or pleural fluid. CARDIOVASCULAR: Normal sized heart. No pulmonary vascular congestion. OTHER FINDINGS: None. IMPRESSION: Unremarkable radiographs of the chest and right ribs. No right rib fracture.
[2017-02-06 11:39] VITALS: BP 136/82; PULSE 63; RESP 19; O2SAT 99
== END 2017-02-06 11:41 | disposition home or self-care (01) ==
LOC: ED 09:58
DX: S29.011A Strain of muscle and tendon of front wall of thorax, initial encounter (principal); X58.XXXA Exposure to other specified factors, initial encounter; I10 Essential (primary) hypertension; I25.2 Old myocardial infarction; Z87.891 Personal history of nicotine dependence

== ENCOUNTER 2017-02-07 06:43 | Day surgery (SDC) | payer BC ==
[2017-02-06 10:00] VITALS: BMI 32.5
[2017-02-07] MEDS ORDERED: Lidocaine 2% Inj (20ml) ONE (08:32)
[2017-02-07] MEDS ORDERED: Iohexol 350mgl/ml 50 ML ONE (08:33)
[2017-02-07] MEDS ORDERED: Iohexol 350 MG/100 ML VIAL ONE (08:33)
[2017-02-07] MEDS ORDERED: Midazolam 2 MG/2 ML VIAL ONE (08:55)
[2017-02-07] MEDS ORDERED: Sodium Chloride 0.9% 1,000 ML IV SCH (09:30)
[2017-02-07 10:01] VITALS: TEMP 97.7
[2017-02-07 10:40] VITALS: RESP 16; O2SAT 98
[2017-02-07 11:43] VITALS: PULSE 62
[2017-02-07 12:36] VITALS: BP 114/62
--- NOTE | 2017-02-08 08:29 | CARDCATH ---
PROCEDURE DATE: 02/07/2017 PROCEDURES: 1. Selective left and right coronary angiography. 2. Left ventriculography. 3. Right femoral arteriography. 4. Mynx deployment. HISTORY: This is a 56-year-old man with known coronary artery disease, status post remote myocardial infarction, and multivessel PCI, who underwent recent stress test showing evidence of possible anterior ischemia with ejection fraction also reduced and cardiac catheterization was advised. INDICATIONS: As above. FINDINGS: HEMODYNAMICS: The aortic pressure was 160/70, left ventricular pressure 160/20. CORONARY ANATOMY: 1. The left mainstem was normal. 2. The left anterior ascending artery was mildly calcified and had a 50% lesion in the early mid segment at the takeoff of the septal perforated. The first diagonal branch was moderate size and had a 70% ostial stenosis. The previously placed stent in the early distal segment of LAD had evidence of mild stenosis of no more than 20% severity. 3. The left circumflex artery gave rise to two moderate size obtuse marginal branches. These had evidence of mild disease. The distal circumflex that was occluded with evidence of left to left collaterals present. 4. The right coronary artery was large and dominant. This had patent stents in its proximal segment. Beyond the stent, there was hazy 50% stenosis. The distal RCA and PDA had no evidence of significant disease. LEFT VENTRICULOGRAPHY: A hand injection was performed in the left ventricle revealing moderate basal diaphragmatic hypokinesis with an overall ejection fraction of 40%. There is no aortic valve gradient noted on catheter pullback. Mitral regurgitation was not assessed. RIGHT FEMORAL ARTERIOGRAPHY: A right femoral arteriogram was performed in the [place]ST[place] projection. This revealed no evidence of significant disease and appropriate level of arterial puncture. The puncture site was then closed with deployment of Mynx. CONCLUSION: 1. Patent LAD and RCA stents. 2. Chronic occlusion of distal left circumflex. 3. Moderate mid LAD and RCA disease. 4. Mildly reduced LV systolic function. RECOMMENDATIONS: Given the above findings, at this time, intensified medical therapy and risk factor control will be advised. Continued monitoring for progression of coronary artery disease will be planned. Bassam Howard MD cc: Travon Salazar MD [facility] # [id number] ANNET[place]
== END 2017-02-07 12:40 | disposition home or self-care (01) ==
LOC: CATH 06:43
PROVIDERS: ATTEND Internal Medicine Cardiovascular Disease
DX: I25.10 Atherosclerotic heart disease of native coronary artery without angina pectoris (principal); I10 Essential (primary) hypertension; E66.9 Obesity, unspecified; I25.82 Chronic total occlusion of coronary artery; Z68.41 Body mass index [BMI] 40.0-44.9, adult; I25.2 Old myocardial infarction
CPT/HCPCS: 36415; 86850; 86900; 93458; 99152; 99153; C1760; C1769; C2629; J1644; J2250; J3010; J7030; J7040; Q9967

== ENCOUNTER 2017-04-25 13:02 | Inpatient (IN) | payer BC ==
[2017-04-25 13:03] VITALS: BMI 32.5
[2017-04-25] MEDS ORDERED: Piperacill/Tazo 4.5gm in NS 4.5 GM/100 ML BAG IVPB STA (13:45)
--- NOTE | 2017-04-25 13:57 | ED PDOC ---
Arrival/HPI - General Chief Complaint: Lower Extremity Problem/Injury Time Seen by Provider: 04/25/17 13:37 Historian: Patient - History of Present Illness Narrative History of Present Illness (Text): 04/25/17 13:56 A 56 year old male, whose past medical history includes hypertension, lymphedema and heart attack (2014 s/p 3 stents), compliant with medications, presents to the emergency department from wound care center for evaluation of right foot wound infection. Patient was sent by Dr. Morrell. Reports patient had right foot wound for a year. Denies any injury to foot. Denies any history of diabetes. Denies smoking. Patient denies any other complaints at this time. Symptom Onset: Sudden Symptom Course: Unchanged Activities at Onset: Rest Associated Symptoms (Text): none Past Medical History - Provider Review Nursing Documentation Reviewed: Yes - Infectious Disease Hx of Infectious Diseases: None - Tetanus Immunization Tetanus Immunization: Unknown - Cardiac Hx Cardiac Disorders: Yes Hx [place]: Yes Hx Hypertension: Yes - Pulmonary Hx Respiratory Disorders: No - Neurological Hx Neurological Disorder: Yes Other/Comment: NEUROPATHY - HEENT Hx HEENT Disorder: No (WEARS RX GLASSES) - Renal Hx Renal Disorder: No - Endocrine/Metabolic Hx Endocrine Disorders: No - Hematological/Oncological Hx Blood Disorders: No - Integumentary Hx Dermatological Disorder: Yes Other/Comment: Right ball of foot stasis ulcer. R foot ulcer - wound center with Dr Morrell - Musculoskeletal/Rheumatological Hx Musculoskeletal Disorders: Yes Hx Osteomyelitis: Yes - Gastrointestinal Hx Gastrointestinal Disorders: No - Genitourinary/Gynecological Hx Genitourinary Disorders: No Hx Reproductive Disorders: No - Psychiatric Hx Emotional Abuse: No Hx Physical Abuse: No Hx Substance Use: No - Past Surgical History Past Surgical History: No Previous - Surgical History Hx Cardiac Catheterization: Yes Hx Coronary Stent: Yes Hx Orthopedic Surgery: Yes (R FOOT) - Anesthesia Hx Anesthesia: Yes - Suicidal Assessment Feels Threatened In Home Enviroment: No Family/Social History - Physician Review Nursing Documentation Reviewed: Yes Family/Social History: No Known Family HX Smoking Status: Former Smoker Hx Alcohol Use: Yes (ON OCCASION) Hx Substance Use: No Hx Substance Use Treatment: No Allergies/Home Meds Allergies/Adverse Reactions: Allergies No Known Allergies Allergy (Verified 04/25/17 13:13) Home Medications: Home Meds Medication Instructions Recorded Confirmed Aspirin [Ecotrin] 81 mg PO DAILY 07/03/16 04/25/17 Carvedilol [Coreg] 6.25 mg PO BID 07/03/16 04/25/17 Gabapentin [Neurontin] 300 mg PO TID 07/03/16 04/25/17 Potassium Chloride [Klor-Con] 20 meq PO BID 07/03/16 04/25/17 Prasugrel [Effient] 10 mg PO DAILY 07/03/16 04/25/17 Rosuvastatin Calcium 20 mg PO HS 07/03/16 04/25/17 Valsartan [Diovan] 160 mg PO DAILY 07/03/16 04/25/17 oxyCODONE/Acetaminophen [Percocet 1 tab PO DAILY PRN 07/03/16 04/25/17 5/325 mg Tab] Metolazone 5 mg PO DAILY 07/13/16 04/25/17 Review of Systems - Physician Review All systems were reviewed & negative as marked: Yes - Review of Systems Constitutional: absent: Fevers Musculoskeletal: Other (right foot wound infection) Physical Exam - Physical Exam Narrative Physical Exam (Text): 04/25/17 16:45 Patient from wound care center with specialty wrap along entire length of right foot and leg to below the knee for an open wound with bone exposure at the medial aspect of the right 1st MTP joint. Wound progressively worsening over 1 year despite about treatment. No chills and no history of injury. Vital Signs Reviewed: Yes Vital Signs Temp Pulse Resp BP Pulse Ox 04/25/17 16:03 73 18 150/81 98 04/25/17 13:20 98.7 F 82 16 155/92 H 96 Temperature: Afebrile Blood Pressure: Hypertensive Pulse: Regular Respiratory Rate: Normal Appearance: Positive for: Well-Appearing, Non-Toxic, Comfortable Pain Distress: None Mental Status: Positive for: Alert and Oriented X 3 - Systems Exam Head: Present: Atraumatic, Normocephalic Pupils: Present: PERRL Extroacular Muscles: Present: EOMI Conjunctiva: Present: Normal Neck: Present: Normal Range of Motion Respiratory/Chest: Present: Clear to Auscultation, Good Air Exchange. No: Respiratory Distress, Accessory Muscle Use Cardiovascular: Present: Regular Rate and Rhythm, Normal S1, S2. No: Murmurs Abdomen: No: Tenderness Back: Present: Normal Inspection Upper Extremity: Present: Normal Inspection. No: Cyanosis, Edema Lower Extremity: Present: Other (right foot wound infection; dressing applied) Neurological: Present: GCS=15, CN II-XII Intact, Speech Normal Skin: Present: Warm, Dry Psychiatric: Present: Alert, Oriented x 3, Normal Insight, Normal Concentration Medical Decision Making ED Course and Treatment: 04/25/17 13:53 Impression: A 56 year old male with right foot wound infection. Plan: -- Radiology right foot -- labs -- Zosyn -- Reassess and disposition Progress Notes: - Lab Interpretations Lab Results: 04/25/17 13:40 04/25/17 15:27 Lab Results 04/25/17 15:27: Sodium 141, Potassium 4.3, Chloride 101, Carbon Dioxide 27, Anion Gap 17, BUN 25 H, Creatinine 1.4, Est GFR ( Amer) > 60, Est GFR ( Non-Af Amer) 52, Random Glucose 102, Calcium 10.5, Total Bilirubin 0.6, AST 30, ALT 37, Alkaline Phosphatase 76, Total Protein 7.7, Albumin 4.5, Globulin 3.3, Albumin/Globulin Ratio 1.4 04/25/17 13:40: PT 12.6 H, INR 1.10 H 04/25/17 13:40: WBC 9.2 D, RBC 4.80, Hgb 13.4 L, Hct 41.2 L, MCV 85.8, MCH 27.9 , MCHC 32.5, RDW 15.2 H, Plt Count 274, MPV 12.5 H, Gran % 79.1 H, Lymph % (Auto ) 14.0 L, [place] % (Auto) 6.2 H, Eos % (Auto) 0.4 L, Baso % (Auto) 0.3, Gran # 7.27 H, Lymph # (Auto) 1.3, [place] # (Auto) 0.6, Eos # (Auto) 0.0, Baso # (Auto) 0.03 I have reviewed the lab results: Yes - RAD Interpretation Radiology Orders: 04/25/17 13:42 FOOT RIGHT 3 VIEWS ROUTINE [RAD] Stat - Medication Orders Current Medication Orders: Discontinued Medications Piperacillin Sod/Tazobactam Sod (Zosyn 4.5 Gm In Ns 100ml) 4.5 gm in 100 mls @ 200 mls/hr IVPB STAT STA PRN Reason: Protocol Stop: 04/25/17 14:14 Last Admin: 04/25/17 14:52 Dose: 200 mls/hr eMAR Start Stop Document 04/25/17 14:52 SHARLENE (Rec: 04/25/17 14:53 SHARLENE [id number]) Intravenous Solution Start Date 04/25/17 Start Time 14:53 End Date 04/25/17 End time 15:53 Total Infusion Time 60 - Scribe Statement The provider has reviewed the documentation as recorded by the Bobbi Paz Provider Scribe Attestation: All medical record entries made by the Scribe were at my direction and personally dictated by me. I have reviewed the chart and agree that the record accurately reflects my personal performance of the history, physical exam, medical decision making, and the department course for this patient. I have also personally directed, reviewed, and agree with the discharge instructions and disposition. Disposition/Present on Arrival - Present on Arrival Any Indicators Present on Arrival: No History of DVT/PE: No History of Uncontrolled Diabetes: No Urinary Catheter: No History of Decub. Ulcer: No History Surgical Site Infection Following: None - Disposition Have Diagnosis and Disposition been Completed?: Yes Diagnosis: Osteomyelitis of ankle or foot, Non-healing open wound of toe Disposition: HOSPITALIZED Disposition Time: 16:15 Patient Plan: Admission Patient Problems: Current Active Problems Problem Status Onset Osteomyelitis of ankle or foot Acute Non-healing open wound of toe Acute Condition: STABLE Referrals: Janice Sosa [Primary Care Provider] - Follow up with primary Forms: [employer] (Swedish)
[2017-04-25 15:16] LABS: BASO # 0.03 K/mm3 (0.0-2.0); BASO % 0.3 % (0.0-3.0); EOS % 0.4 % (1.5-5.0); GRAN # 7.27 (1.4-6.5); GRAN % 79.1 % (50.0-68.0); HEMOGLOBIN 13.4 g/dL (14.0-18.0); LYMPH # 1.3 (1.2-3.4); MEAN CELL VOLUME 85.8 fl (80.0-105.0); MEAN CORPUSCULAR HEMOGLOBIN 27.9 pg (25.0-35.0); MEAN CORPUSCULAR HGB CONC 32.5 g/dl (31.0-37.0); MEAN PLATELET VOLUME 12.5 fl (7.0-11.0); MONO # 0.6 (0.1-0.6); MONO % 6.2 % (1.0-6.0); RBC 4.8 10^6/uL (3.5-6.1); RED CELL DISTRIBUTION WIDTH 15.2 % (11.5-14.5); WHITE BLOOD COUNT 9.2 10^3/ul (4.5-11.0)
[2017-04-25 15:26] LABS: INR 1.1 (0.93-1.08); PROTHROMBIN TIME 12.6 SECONDS (9.4-12.5)
[2017-04-25 15:43] LABS: ALB/GLOB RATIO 1.4 (1.1-1.8); ALBUMIN 4.5 g/dL (3.0-4.8); ALT/SGPT 37 U/L (7-56); AST/SGOT 30 U/L (17-59); BLOOD UREA NITROGEN 25 mg/dL (7-21); CALCIUM 10.5 mg/dL (8.4-10.5); GFR AFRICAN-AMERICAN > 60; GFR NON-AFRICAN AMERICAN 52
--- NOTE | 2017-04-25 15:49 | RAD ---
PROCEDURE: Right Foot Radiographs. HISTORY: infection 1st MTP jt COMPARISON: 03/08/2017 FINDINGS: BONES: No compelling evidence for acute osteomyelitis, no change compared to the prior study JOINTS: Degenerative changes. SOFT TISSUES: Profound soft tissue swelling at the level of distal metatarsals and digits. No air identified within soft tissues. OTHER FINDINGS: None. IMPRESSION: Soft tissue swelling without acute articular or osseous abnormality. Similar findings identified previously
--- NOTE | 2017-04-25 18:23 | CP.PCM.CON ---
History of Present Illness - History of Present Illness History of Present Illness: Infectious Disease Follow Up/Consult: April 25, 2017 56 yo male with multiple hospitalizations at numerous facilities for his lower extremities. Patient with swelling and drainage from ulceration at the base of the third toe on the right foot. The patient denies fevers or chills. MRI was done recently showing possible abscess formation at the base of the third toe in the right foot and strong suspicion for osteomyelitis. The patient has severe swelling of the right foot. Seen with Dr. Morrell in the [facility]. The patient's cultures were growing Enterococcus and Achromobacter in wound cultures of the right foot in the past month. Dr. Morrell debrided the right foot and found that the wound was as deep as the bone. PMHx: Hypertension, Coronary Artery disease, Peripheral Vascular Disease, Obesity, [place] history, Bilateral lower extremity neuropathy, history of osteomyelitis. PSHx: Bone biopsy Allergies: NKDA Social Hx: Ex-smoker, Ex-EtOH user. On disability now. Active Medications Tigecycline 50 mg/ Sodium (Chloride) 100 mls @ 100 mls/hr IVPB Q12 VICTOR MANUEL PRN Reason: Protocol Stop: 04/30/17 22:01 Family Hx: None ROS: No fevers, chills, nausea, vomiting, diarrhea, headaches, dizziness, chest pain , abdominal pain, melena, hematuria, hematemesis, hematochezia, depression, anxiety Past Patient History - Infectious Disease Hx of Infectious Diseases: None - Tetanus Immunizations Tetanus Immunization: Unknown - Past Social History Smoking Status: Former Smoker - CARDIAC Hx Cardiac Disorders: Yes Hx Heart Attack: Yes Hx Hypertension: Yes - PULMONARY Hx Respiratory Disorders: No - NEUROLOGICAL Hx Neurological Disorder: Yes Other/Comment: NEUROPATHY - HEENT Hx HEENT Problems: No (WEARS RX GLASSES) - RENAL Hx Chronic Kidney Disease: No - ENDOCRINE/METABOLIC Hx Endocrine Disorders: No - HEMATOLOGICAL/ONCOLOGICAL Hx Blood Disorders: No - INTEGUMENTARY Hx Dermatological Problems: Yes Other/Comment: Right ball of foot stasis ulcer. R foot ulcer - wound center with Dr Morrell - MUSCULOSKELETAL/RHEUMATOLOGICAL Hx Musculoskeletal Disorders: Yes Hx Osteomyelitis: Yes - GASTROINTESTINAL Hx Gastrointestinal Disorders: No - GENITOURINARY/GYNECOLOGICAL Hx Genitourinary Disorders: No Hx Reproductive Disorders: No - PSYCHIATRIC Hx Emotional Abuse: No Hx Physical Abuse: No Hx Substance Use: No - SURGICAL HISTORY Hx Cardiac Catheterization: Yes Hx Coronary Stent: Yes Hx Orthopedic Surgery: Yes (R FOOT) - ANESTHESIA Hx Anesthesia: Yes Meds Allergies/Adverse Reactions: Allergies Allergy/AdvReac Type Severity Reaction Status Date / Time No Known Allergies Allergy Verified 04/25/17 13:13 - Medications Medications: Current Medications Tigecycline 50 mg/ Sodium (Chloride) 100 mls @ 100 mls/hr IVPB Q12 VICTOR MANUEL PRN Reason: Protocol Physical Exam - Constitutional Appears: Non-toxic, No Acute Distress, Chronically Ill Additional comments: obese - Head Exam Head Exam: ATRAUMATIC, NORMOCEPHALIC - Eye Exam Eye Exam: EOMI, PERRL Pupil Exam: NORMAL ACCOMODATION, PERRL - ENT Exam ENT Exam: Mucous Membranes Moist, Normal External Ear Exam, TM's Normal Bilaterally - Neck Exam Neck exam: Positive for: Full Rom, Normal Inspection - Respiratory Exam Respiratory Exam: Clear to Auscultation Bilateral, NORMAL BREATHING PATTERN. absent: Rales, Rhonchi, Wheezes - Cardiovascular Exam Cardiovascular Exam: REGULAR RHYTHM, RRR, +S1, +S2 - GI/Abdominal Exam GI & Abdominal Exam: Normal Bowel Sounds, Soft. absent: Distended, Tenderness - Extremities Exam Additional comments: Right leg with +2 edema of the lower right leg. Stage II-III ulceration on base of the 3rd toe ventral surface with drainage. Debridement today in the wound care center with heavy bleeding achieved. Solid Tissue. Sloughing of the skin on both legs. - Neurological Exam Neurological exam: Alert, CN II-XII Intact, Oriented x3 Additional comments: decreased sensation of both lower extremities. Weak distal pulses. chronic venous stasis changes to both legs with right much worse than left. - Psychiatric Exam Psychiatric exam: Normal Affect, Normal Mood - Skin Additional comments: As above. Results - Vital Signs Recent Vital Signs: Last Vital Signs Temp 98.7 F 04/25/17 13:20 Pulse 72 04/25/17 17:49 Resp 18 04/25/17 17:49 BP 153/88 H 04/25/17 17:49 Pulse Ox 100 04/25/17 17:49 - Labs Result Diagrams: 04/25/17 13:40 04/25/17 15:27 Labs: Laboratory Results - last 24 hr 04/25/17 04/25/17 04/25/17 13:40 13:40 15:27 WBC 9.2 D RBC 4.80 Hgb 13.4 L Hct 41.2 L MCV 85.8 MCH 27.9 MCHC 32.5 RDW 15.2 H Plt Count 274 MPV 12.5 H Gran % 79.1 H Lymph % (Auto) 14.0 L Mccracken % (Auto) 6.2 H Eos % (Auto) 0.4 L Baso % (Auto) 0.3 Gran # 7.27 H Lymph # (Auto) 1.3 Mccracken # (Auto) 0.6 Eos # (Auto) 0.0 Baso # (Auto) 0.03 PT 12.6 H INR 1.10 H Sodium 141 Potassium 4.3 Chloride 101 Carbon Dioxide 27 Anion Gap 17 BUN 25 H Creatinine 1.4 Est GFR ( Amer) > 60 Est GFR (Non-Af Amer) 52 Random Glucose 102 Calcium 10.5 Total Bilirubin 0.6 AST 30 ALT 37 Alkaline Phosphatase 76 Total Protein 7.7 Albumin 4.5 Globulin 3.3 Albumin/Globulin Ratio 1.4 Assessment & Plan - Assessment and Plan (Free Text) Assessment: 56 yo male well known to me with ulceration on the sole of the right foot behind the base of the third toe. The patient required debridement in the [facility] that showed depth of wound to the bone. Patient admitted for IV antibiotics and further debridement of the soft tissue and likely excision of the bone and toe around the 3rd toe area of the right foot. Last cultures grew enterococcus and Achromobacter. Tigecycline started as both organisms were sensitive to this antibiotic. Supportive care. Tigecycline started at 50mg BID IV. Case seen and discussed with Dr. Morrell in [facility]. Thank you for allowing me to participate in the care of this patient, we will follow with you.
[2017-04-25] MEDS ORDERED: Oxycodone/Acetaminophen 5/325 mg Tab PO PRN (20:03)
[2017-04-26] MEDS ORDERED: Non Formulary Medication (Valsartan [Diovan] 160 MG) PO SCH (10:00)
--- NOTE | 2017-04-26 11:52 | CP.PCM.CON ---
<Raven Lauren - Last Filed: 04/26/17 15:11> History of Present Illness - History of Present Illness History of Present Illness: Podiatry Consult Note - Dr. Morrell 56 year old male patient PMHx HTN, lymphedema, [place] s/p 3 stents seen and evaluated at bedside for right foot wound. Patient was sent to ED from wound care center for further evaluation of possible bone infection. Patient has no pedal complaints currently. Admits he does not ambulate on right foot frequently. Wound care 4-layer dressing on RLE with surgical shoe present. Review of Systems - Review of Systems All systems: reviewed and no additional remarkable complaints except (as per HPI ) Past Patient History - Infectious Disease Hx of Infectious Diseases: None - Tetanus Immunizations Tetanus Immunization: Unknown - Past Social History Smoking Status: Former Smoker - CARDIAC Hx Cardiac Disorders: Yes Hx Hypertension: Yes - PULMONARY Hx Respiratory Disorders: No - NEUROLOGICAL Hx Neurological Disorder: Yes Other/Comment: NEUROPATHY - HEENT Hx HEENT Problems: No (WEARS RX GLASSES) - RENAL Hx Chronic Kidney Disease: No - ENDOCRINE/METABOLIC Hx Endocrine Disorders: No - HEMATOLOGICAL/ONCOLOGICAL Hx Blood Disorders: No - INTEGUMENTARY Hx Dermatological Problems: Yes Other/Comment: Right ball of foot stasis ulcer. R foot ulcer - wound center with Dr Morrell - MUSCULOSKELETAL/RHEUMATOLOGICAL Hx Musculoskeletal Disorders: Yes Hx Falls: Yes Hx Osteomyelitis: Yes - GASTROINTESTINAL Hx Gastrointestinal Disorders: No - GENITOURINARY/GYNECOLOGICAL Hx Genitourinary Disorders: No - PSYCHIATRIC Hx Emotional Abuse: No Hx Physical Abuse: No - SURGICAL HISTORY Hx Cardiac Catheterization: Yes Hx Coronary Stent: Yes Hx Orthopedic Surgery: Yes (R FOOT) - ANESTHESIA Hx Anesthesia: Yes Meds Allergies/Adverse Reactions: Allergies Allergy/AdvReac Type Severity Reaction Status Date / Time No Known Allergies Allergy Verified 04/25/17 13:13 - Medications Medications: Current Medications Aspirin (Ecotrin) 81 mg PO DAILY [facility] Last Admin: 04/26/17 10:33 Dose: 81 mg Carvedilol (Coreg) 6.25 mg PO BID [facility] Last Admin: 04/26/17 10:33 Dose: 6.25 mg Gabapentin (Neurontin) 300 mg PO TID VICTOR MANUEL PRN Reason: Protocol Last Admin: 04/26/17 10:33 Dose: 300 mg Tigecycline 50 mg/ Sodium (Chloride) 100 mls @ 100 mls/hr IVPB Q12 VICTOR MANUEL PRN Reason: Protocol Stop: 04/30/17 22:01 Last Admin: 04/26/17 10:33 Dose: 100 mls/hr Losartan Potassium (Cozaar) 100 mg PO DAILY [facility] Last Admin: 04/26/17 10:33 Dose: 100 mg Oxycodone/Acetaminophen (Percocet 5/325 Mg Tab) 1 tab PO Q4 PRN PRN Reason: Pain, moderate (4-7) Stop: 04/29/17 00:01 Prasugrel (Effient) 10 mg PO DAILY [facility] Last Admin: 04/26/17 10:33 Dose: 10 mg Physical Exam - Constitutional Appears: Well, Non-toxic, No Acute Distress - Extremities Exam Additional comments: RLE focused physical exam VASC: DP and PT pulses nonpalpable secondary to edema. Temperature gradient warm to warm. CFT <3 seconds to all digits. +2 pitting edema to lower extremity. No increase in warmth noted to plantar ulceration. NEURO: Gross sensation diminished. DERM: Ulceration noted to plantar aspect of forefoot measuring approximately 2.5 x 1.7 cm, (+)PTB. Ulcer is noted to have mixed fibrogranular base with fibrin slough. Hyperkeratotic rim noted along with dried, crusted blood. Minimal drainage, absent purulence. ORTHO: No pain on palpation noted. - Neurological Exam Neurological exam: Alert, Oriented x3 - Psychiatric Exam Psychiatric exam: Normal Affect, Normal Mood Results - Vital Signs Recent Vital Signs: Last Vital Signs Temp 98 F 04/26/17 08:10 Pulse 77 04/26/17 10:33 Resp 18 04/26/17 08:10 BP 127/70 04/26/17 10:33 Pulse Ox 96 04/26/17 08:10 - Labs Result Diagrams: 04/25/17 13:40 04/25/17 15:27 Labs: Laboratory Results - last 24 hr 04/26/17 08:40 ESR 27 H Assessment & Plan - Assessment and Plan (Free Text) Assessment: 56 year old male with right foot plantar ulceration Plan: Patient seen and evaluated at bedside with attending, Dr. Morrell Afebrile, ESR 27 Right foot XR reviewed: Unremarkable, no significant changes from prior study ID consulted - Dr. Kohli present at bedside, recommends bone biopsy prior to antibiotics To OR tomorrow 04/27/17 @ 07:30 for right foot bone biopsy NPO past mn Pain control per medicine Right foot ulceration dressed with Maxsorb, DSD, and JERED Podiatry will continue to follow while in house <Shameka Morrell - Last Filed: 04/29/17 15:31> Meds - Medications Medications: Current Medications Acetaminophen (Tylenol 325mg Tab) 650 mg PO Q6H PRN PRN Reason: Pain, Mild (1-3) Aspirin (Ecotrin) 81 mg PO DAILY [facility] Last Admin: 04/29/17 09:45 Dose: 81 mg Carvedilol (Coreg) 6.25 mg PO BID [facility] Last Admin: 04/29/17 09:45 Dose: 6.25 mg Gabapentin (Neurontin) 300 mg PO TID [facility] PRN Reason: Protocol Last Admin: 04/29/17 14:29 Dose: 300 mg Piperacillin Sod/Tazobactam Sod (Zosyn 3.375 In Ns 100ml) 100 mls @ 200 mls/hr IVPB Q6 [facility] PRN Reason: Protocol Stop: 05/06/17 19:25 Last Admin: 04/29/17 12:14 Dose: 200 mls/hr Losartan Potassium (Cozaar) 100 mg PO DAILY [facility] Last Admin: 04/29/17 09:45 Dose: 100 mg Metoclopramide HCl (Reglan) 10 mg IV ONCE PRN PRN Reason: Nausea/Vomiting Ondansetron HCl (Zofran Inj) 4 mg IVP ONCE PRN PRN Reason: Nausea/Vomiting Oxychlorosene Sodium (Clorpactin Wcs-90) 2 gm TOP DAILY [facility] Last Admin: 04/29/17 09:44 Dose: Not Given Oxycodone/Acetaminophen (Percocet 10/325 Mg Tab) 1 tab PO Q4H PRN PRN Reason: Pain, moderate (4-7) Last Admin: 04/27/17 23:03 Dose: 1 tab Prasugrel (Effient) 10 mg PO DAILY [facility] Last Admin: 04/29/17 09:45 Dose: 10 mg Results - Vital Signs Recent Vital Signs: Last Vital Signs Temp 98.4 F 04/29/17 07:30 Pulse 73 04/29/17 07:30 Resp 18 04/29/17 07:30 BP 106/72 04/29/17 07:30 Pulse Ox 99 04/29/17 07:30 - Labs Result Diagrams: 04/25/17 13:40 04/25/17 15:27 Attending/Attestation - Attestation I have personally seen and examined this patient.: Yes I have fully participated in the care of the patient.: Yes I have reviewed all pertinent clinical information: Yes
--- NOTE | 2017-04-26 16:27 | RAD ---
PROCEDURE: CHEST RADIOGRAPH, 1 VIEW HISTORY: OR 04/27/17 COMPARISON: 02/06/2017. FINDINGS: LUNGS: The lungs are well inflated and clear. PLEURA: No pneumothorax or pleural fluid seen. CARDIOVASCULAR: There is mild cardiomegaly. OSSEOUS STRUCTURES: No significant abnormalities. VISUALIZED UPPER ABDOMEN: Normal. OTHER FINDINGS: None. IMPRESSION: No active pulmonary disease.
--- NOTE | 2017-04-26 20:02 | CON ---
DATE: 04/26/2017 LOCATION: The patient is seen earlier today in [facility], bed 2. CHIEF COMPLAINT: Right foot infection times months. HISTORY OF PRESENT ILLNESS: This is a 56-year-old male with morbid obesity with BMI of 44 with hypertension, alcohol use, alcoholic neuropathy, history of sensitive Staph aureus and Morganella cellulitis, history of coronary artery disease, myocardial infarction, hyperlipidemia, arthritis, history of right foot osteomyelitis, who was admitted by Dr. Morrell through the [facility]. The patient has no fevers. REVIEW OF SYSTEMS: No fevers. No chills. No nausea. No vomiting. No chest pain. No abdominal pain. His chief complaint is right foot chronic ulcer. PAST MEDICAL HISTORY: Significant for hypertension, alcoholic neuropathy, coronary artery disease, myocardial infarction, hyperlipidemia, arthritis, right foot osteomyelitis. PAST SURGICAL HISTORY: Significant for bone right foot surgery and cardiac cath and stent placement. ALLERGIES: THE PATIENT HAS NO KNOWN ALLERGIES. MEDICATIONS: Reveals rosuvastatin, aspirin, Diovan, prasugrel, oxycodone. PHYSICAL EXAMINATION: GENERAL: The patient is in bed, comfortable, in no acute distress. VITAL SIGNS: Temperature of 98, blood pressure is 120/70, respiratory rate of 18, heart rate of 70. HEENT: Examination of HEENT is unremarkable. NECK: Supple. LUNGS: Have decreased breath sounds. HEART: Normal S1 and S2. ABDOMEN: Soft, nontender. EXTREMITIES: Examination of foot reveals a chronic ulcer. Foot is examined with Dr. Morrell. No erythema. It is not warm to touch. No discharge. It is a chronic dry ulcer. LABORATORY DATA: Laboratory examination reveals a white count of 9.2, sed rate is 27, coagulation is noted. Chemistries revealed a BUN of 25, creatinine of 1.5, C-reactive protein is greater than 15. Microbiology is reviewed with Achromobacter xylosoxidans and Enterococcus. ASSESSMENT AND PLAN: A 57-year-old male with history of coronary artery disease, hypertension, myocardial infarction, hyperlipidemia with a right foot chronic ulcer, must rule out underlying osteomyelitis. No evidence of active acute infection. We will continue the Tygacil. Case discussed with Dr. Morrell and Dr. Barroso, the patient's primary doctor and we will discontinue the Tygacil. Recommend a bone biopsy first and bone culture after the patient is off of antibiotics for a few days and we will make recommendations based on bone culture and bone biopsy. No antibiotics at this time. Travon Kohli MD
[2017-04-27] MEDS ORDERED: Midazolam 2 MG/2 ML VIAL ONE ×3 (07:30→07:57)
[2017-04-27] MEDS ORDERED: Lidocaine 2% Inj (20ml) ONE (07:31)
[2017-04-27] MEDS ORDERED: Gentamicin 80 mg/2mL Inj. ONE (07:55)
--- NOTE | 2017-04-27 08:37 | PCM.SURG1 ---
Surgeon's Initial Post Op Note - Surgeon's Notes Surgeon: Dr. Morrell Livestock Agent: Neisha Lauren PGY1 Type of Anesthesia: IV Sedation, Local (10cc 2% lidocaine plain) Anesthesia Administered By: Dr. Harden Pre-Operative Diagnosis: Right foot chronic plantar ulceration Operative Findings: See operative report Post-Operative Diagnosis: Same as above Operation Performed: Right foot bone culture and biopsy Specimen/Specimens Removed: 1) Right foot abscess. 2) Right 2nd metatarsal. 3 ) Right foot 2nd metatarsal bone culture Estimated Blood Loss: EBL {In ML}: 1 Blood Products Given: N/A Drains Used: No Drains Post-Op Condition: Good Date of Surgery/Procedure: 04/27/17 Time of Surgery/Procedure: 08:36
--- NOTE | 2017-04-27 09:15 | HP ---
HISTORY OF PRESENT ILLNESS: This is a 56-year-old male who is coming into the hospital with hypertension, lymphedema, [place], and foot ulcer. Patient has been having foot ulcer that has been treated by Dr. Morrell. Dr. Morrell stated that the patient had large ulcer that was not improving. He was concerned about infection and was sent to the ER for further evaluation. REVIEW OF SYSTEMS: The patient has no complaints of any pain. No headaches. No dizziness. No nausea. No vomiting. No chills. All other review of symptoms are within normal limits except as mentioned. HOME MEDICATIONS: Have been reviewed on the [facility]. PAST MEDICAL HISTORY: 1. Right foot ulcer. 2. Right foot osteomyelitis. 3. Coronary artery disease. 4. Hypertension. 5. Peripheral arterial disease. 6. Dyslipidemia. 7. Neuropathy. SOCIAL HISTORY: Patient does not smoke. He is not and has no children. He stopped drinking in 03/2016. FAMILY HISTORY: Noncontributory. PHYSICAL EXAMINATION: VITAL SIGNS: He has a temperature of 98, pulse of 77, blood pressure 127/70, respirations 18, O2 saturation is 96%. GENERAL: The patient lying in bed, uncomfortable, and in no acute distress. HEENT: Atraumatic and normocephalic. Anicteric sclerae. Moist mucosa. [place] conjunctivae. No oral lesions. NECK: No JVD, anterior and posterior adenopathy, thyromegaly, or bruits. CARDIOVASCULAR: S1 and S2 regular. No murmur, rubs, or gallop. LUNGS: Clear to auscultation bilaterally. No wheezes, rales, or rhonchi. ABDOMEN: Bowel sounds are positive. Soft, nontender and nondistended. No hepatosplenomegaly. No rebound and no guarding EXTREMITIES: No cyanosis, clubbing, or edema. Patient has right heel that shows an ulcer; it is about 2.5 x 1.7 cm with minimal drainage. NEUROLOGIC: No facial asymmetry. Tongue is midline. No uvula deviation. Power is 5/5 upper extremity and lower extremity. Sensation intact in upper extremity and lower extremity. PSYCHIATRIC: He is awake, alert and oriented x3. No anxiety or depression. He has normal affect. GENITOURINARY: No CVA tenderness. VASCULAR: 2+ pulses in the carotid pulses and pedal pulses. SKIN: No erythema or nodules. SPINE: Shows normal curvature. LABORATORY DATA: Labs have been reviewed. White count of 9.2, hemoglobin 13.4. Patient had a chest x-ray that showed no significant findings. Right foot x-ray done shows soft tissue swelling with acute articular or osseous abnormality, mostly swelling. ASSESSMENT: 1. Right foot plantar ulceration. 2. Dyslipidemia. 3. Coronary artery disease with stent. 4. Peripheral arterial disease. 5. Hypertension. 6. Obesity with body mass index of 44. PLAN: Patient is admitted to the hospital. He is scheduled for the OR tomorrow morning for bone biopsy and the patient's pain is controlled. He is getting local wound care by Dr. Morrell. I have asked Dr. Kohli to see the patient as well. The patient had been seen by Dr. Stevenson in the past. The patient is on losartan for hypertension. He is on Percocet for pain. He is not on antibiotics. Patient has had a Doppler study that has been ordered. We will await further input after the biopsy and by the consultants involved. Hank Barroso MD
--- NOTE | 2017-04-27 09:33 | RAD ---
PROCEDURE: Right Foot Radiographs. HISTORY: s/p right foot 2nd metatarsal bone biopsy COMPARISON: None. FINDINGS: BONES: No definitive acute fracture dislocation right extensive degenerative changes seen throughout the forefoot and midfoot joints and are less prominent at the hindfoot joints. Once again, no definite erosive changes are appreciated or periosteal reaction that may indicate osteomyelitis. Clinically correlate nevertheless. JOINTS: No dislocation. Degenerative changes as described above. SOFT TISSUES: Extensive forefoot and midfoot soft tissue edema is appreciate without emphysematous soft tissue change. OTHER FINDINGS: None. IMPRESSION: No definite acute fracture or dislocation. Extensive soft tissue edema is seen throughout the forefoot and midfoot distributions without emphysematous soft tissue change. Diffuse degenerative joint changes are seen throughout the right foot predominate at the forefoot and midfoot as discussed above.
[2017-04-27] MEDS: Oxychlorosene Topical 2 gm Packet TOP SCH (10:31)
--- NOTE | 2017-04-27 10:31 | CARD ---
APPROVED REPORT EKG Measurement Heart [id number] <Conclusion> Normal sinus rhythm NSSTW changes Small q waves 2,3,F, possible IMI, old Prolonged QTc No change
--- NOTE | 2017-04-27 12:00 | PN ---
DATE: 04/27/2017 SUBJECTIVE: The patient has no complaints of any chest pain. No shortness of breath. No headaches. He is to go for a . PHYSICAL EXAMINATION: VITAL SIGNS: Temperature is 97.6, pulse of 76, blood pressure 168/69, respirations 20. GENERAL: The patient is lying in bed, flat, comfortable. HEENT: No oral lesion. Anicteric sclerae. Moist mucosa. NECK: No JVD, adenopathy, or thyromegaly. CARDIOVASCULAR: S1 and S2, regular. No murmurs, rubs, or gallops. LUNGS: Clear to auscultation bilaterally. No wheeze, rales, or rhonchi. ABDOMEN: Bowel sounds are positive, soft, nontender and nondistended. EXTREMITIES: no cyanosis, clubbing or edema. LABORATORY DATA: White count is 9.2, hemoglobin is 13.4, creatinine is 1.4. ASSESSMENT: 1. Right foot ulcer. 2. Hypertension. 3. Lymphedema. 4. Coronary artery disease with stent. 5. Peripheral arterial disease. 6. Obesity with body mass index of 44. PLAN: The patient is currently comfortable. The patient is being followed by Dr. Morrell and Dr. Kohli. The patient is on Losartan for hypertension. He is going to continue with Zetia. I will continue the patient on Percocet for pain. He is on Neurontin for neuropathy. The patient has had 2+ Doppler, that is pending. Hank Barroso MD
--- NOTE | 2017-04-27 13:10 | US ---
PROCEDURE: Lower extremity SHRUTHI exam HISTORY: Peripheral vascular disease with pain and ulceration. Previous smoker. PHYSICIAN(S): J Luis Salazar MD. FINDINGS: The resting SHRUTHI's are normal: right, 1.24and left, 1.28. The brachial systolic pressures are symmetric. The high thigh pressures are noncompressible. There is a difference in amplitude, but the high thigh PVR waveforms are likely normal. The calf PVR waveforms augment normally. No significant gradients are noted across the thighs. The ankle and metatarsal waveforms are relatively normal and symmetric. No significant pressure gradients are noted across the lower legs. IMPRESSION: 1. Relatively normal SHRUTHI and PVR examination at rest.
[2017-04-27] MEDS ORDERED: Oxycodone/Acetaminophen 10/325 mg Tab PO PRN (17:49)
--- NOTE | 2017-04-27 19:43 | OP ---
PROCEDURE DATE: 04/27/17 SURGEON: Shameka Morrell DPM. MILK HOUSE WORKER: Raven Lauren, PGY-1. ANESTHESIOLOGIST: Dr. Harden. TYPE OF ANESTHESIA: IV sedation with local, 10 mL of 2% lidocaine plain. PREOPERATIVE DIAGNOSIS: Right foot chronic plantar ulceration. POSTOPERATIVE DIAGNOSIS: Right foot chronic plantar ulceration. PROCEDURE: Right foot bone culture and biopsy. INDICATIONS: The patient is a 56-year-old male with the above diagnosis. Patient has exhausted conservative treatment at this time and now requests surgical intervention. The patient signed the consent after careful explanation of risks, benefits, alternatives and complications of the procedure and wishes to proceed. No guarantees were given nor implied. PREPARATION: Patient was brought into the operating room via stretcher and was left on the stretcher in a supine position for the duration of the procedure. A well-padded pneumatic ankle tourniquet was applied to the right ankle in a supramalleolar position. Timeout was performed for identification of the correct patient and procedure. After the induction of IV sedation, approximately 10 mL of 2% lidocaine plain was administered in a proximal V-type fashion to the ulceration site. The right foot was then prepped and draped in normal sterile manner. The patient's right foot was exsanguinated with elevation and the tourniquet was inflated to 350mmHg and the procedure began. DESCRIPTION OF PROCEDURE: Attention was directed to the plantar aspect of the right foot where an ulceration measuring approximately 2.5 x 1.7 was noted sub-second metatarsal head. Ulcer was noted to have a beefy granular base with minimal fibrin slough and a hyperkeratotic rim. Utilizing a 15 blade, the hyperkeratotic rim was excisionally debrided to healthy skin. Next, utilizing a curette, the fibrin slough was removed. Utilizing Brown forceps, a sinus track was found to the proximal lateral aspect of the second metatarsal where a collection of serous fluid was able to be expressed. At this time, wound culture was obtained and passed off the operative field to be sent to Pathology. Next, utilizing a Jamshidi needle, the needle was inserted into the plantar aspect of the second metatarsal head to obtain a bone culture. Once removed, specimen was not able to be obtained. Next, utilizing a trephine, the trephine was inserted into the plantar aspect of the metatarsal head and bone specimen was able to be removed, was then passed off the operative field to be sent to Pathology. Next, a right foot second metatarsal bone culture was obtained, passed off the operative field to be sent to Pathology as well. Next, using a pulse lavage, 3 L of gentamicin infused saline solution, the plantar ulceration was irrigated. The ulceration was then packed with a quarter-inch Iodoform packing strip and dressed with sterile gauze, ABDs, Cleo and an Mark wrap. POSTOPERATIVE CONDITION: The patient tolerated the anesthesia and procedure well and was escorted to the recovery room with vital signs stable and neurovascular status intact to the right foot. Patient is to remain partial weightbearing to the heel only and Podiatry will continue to follow the patient while in-house. Raven Lauren DPM Shameka Morrell DPM ANNETTA
[2017-04-27] MEDS: Piperacillin/Tazobact 3.375 gm 100 ML IVPB SCH (23:48)
--- NOTE | 2017-04-28 00:09 | PN ---
DATE: 04/27/2017 SUBJECTIVE: The patient was seen early this morning in the recovery room after his procedure. No fevers. No chills. Doing well. Awake. PHYSICAL EXAMINATION: VITAL SIGNS: Temperature is 98, blood pressure is 140/80, respiratory rate of 16. HEENT: Unremarkable. NECK: Supple. LUNGS: Have decreased breath sounds. HEART: Normal S1 and S2. ABDOMEN: Soft. LABORATORY DATA: Review of the cultures from the right foot from 04/16 has Achromobacter and Enterococcus. Enterococcus is sensitive to and Achromobacter is also sensitive to piperacillin. ASSESSMENT AND PLAN: This is a 56-year-old male with history of coronary artery disease, hypertension, myocardial infarction, hyperlipidemia with a right foot chronic ulcer and is now status post bone biopsy and bone culture. We will empirically start the patient on Zosyn, pending bone biopsy and the OR cultures and pathology report. We will start empirically on Zosyn and follow up with pathology and OR cultures. Travon Kohli MD
[2017-04-28] MEDS: Piperacillin/Tazobact 3.375 gm 100 ML IVPB SCH ×5 (02:00→23:43)
--- NOTE | 2017-04-28 11:12 | CP.PCM.PN ---
<Raven Lauren - Last Filed: 04/28/17 12:41> Subjective - Date & Time of Evaluation Date of Evaluation: 04/28/17 Time of Evaluation: 11:12 - Subjective Subjective: Podiatry Consult Note - Dr. Morrell 56 year old male patient PMHx HTN, lymphedema, [place] s/p 3 stents seen and evaluated at bedside 2 days s/p right foot bone culture and biopsy. Patient hemodynamically stable and NAD. No acute events overnight. Reports mild pain to surgical site yesterday evening however no pedal complaints currently. Surgical shoe present to right foot with dressing clean/dry/intact. Denies current N/V/F/ D/C/SOB/calf pain. Objective - Vital Signs/Intake and Output Vital Signs (last 24 hours): Temp Pulse Resp BP Pulse Ox 99.6 F 64 25 H 114/68 97 04/28/17 07:30 04/28/17 07:30 04/28/17 07:30 04/28/17 07:30 04/28/17 07:30 Intake and Output: 04/28/17 04/28/17 06:59 18:59 Intake Total 1000 Balance 1000 - Medications Medications: Current Medications Acetaminophen (Tylenol 325mg Tab) 650 mg PO Q6H PRN PRN Reason: Pain, Mild (1-3) Aspirin (Ecotrin) 81 mg PO DAILY [facility] Last Admin: 04/27/17 10:27 Dose: 81 mg Carvedilol (Coreg) 6.25 mg PO BID [facility] Last Admin: 04/27/17 17:43 Dose: 6.25 mg Gabapentin (Neurontin) 300 mg PO TID [facility] PRN Reason: Protocol Last Admin: 04/27/17 17:53 Dose: 300 mg Piperacillin Sod/Tazobactam Sod (Zosyn 3.375 In Ns 100ml) 100 mls @ 200 mls/hr IVPB Q6 [facility] PRN Reason: Protocol Stop: 05/06/17 19:25 Last Admin: 04/28/17 07:39 Dose: 200 mls/hr Losartan Potassium (Cozaar) 100 mg PO DAILY [facility] Last Admin: 04/27/17 10:27 Dose: 100 mg Metoclopramide HCl (Reglan) 10 mg IV ONCE PRN PRN Reason: Nausea/Vomiting Ondansetron HCl (Zofran Inj) 4 mg IVP ONCE PRN PRN Reason: Nausea/Vomiting Oxychlorosene Sodium (Clorpactin Wcs-90) 2 gm TOP DAILY [facility] Last Admin: 04/27/17 10:31 Dose: 2 gm Oxycodone/Acetaminophen (Percocet 10/325 Mg Tab) 1 tab PO Q4H PRN PRN Reason: Pain, moderate (4-7) Last Admin: 04/27/17 23:03 Dose: 1 tab Prasugrel (Effient) 10 mg PO DAILY [facility] Last Admin: 04/27/17 10:31 Dose: 10 mg - Labs Labs: PT 12.6 SECONDS (9.4-12.5) H 04/25/17 13:40 INR 1.10 (0.93-1.08) H 04/25/17 13:40 - Constitutional Appears: Well, Non-toxic, No Acute Distress - Extremities Exam Additional comments: RLE focused physical exam VASC: DP and PT pulses nonpalpable secondary to edema. Temperature gradient warm to warm. CFT <3 seconds to all digits. +1 pitting edema to lower extremity. No increase in warmth noted to plantar ulceration. NEURO: Gross sensation diminished. DERM: Ulceration noted sub 2nd metatarsal head measuring approximately 2.5 x 2.0cm, (+)PTB. Ulcer is noted to have a beefy, granular base. No drainage or purulence was able to be expressed from this visit. Tracking noted at 7 o' clock. Absent malodor or periwound erythema. ORTHO: No pain on palpation noted. - Neurological Exam Neurological Exam: Alert, Awake, Oriented x3 - Psychiatric Exam Psychiatric exam: Normal Affect, Normal Mood Assessment and Plan - Assessment and Plan (Free Text) Assessment: 56 year old male PMHx HTN, lymphedema, [place] s/p 3 stents with right foot chronic plantar ulceration, POD#1 right foot bone culture and biopsy (DOS 04/27/17) Plan: Patient seen and evaluated Discussed with attending, Dr. Morrell Afebrile Right foot XR reviewed: Unremarkable, no significant changes from prior study Intra-op specimens removed: 1) Right foot abscess: WCx pending 2) Right 2nd metatarsal: (prelim) gram positive cocci 3) Right foot 2nd metatarsal bone culture: pathology pending Wound cleansed with Clorpactin solution, repacked with 1/" iodoform packing strip, and dressed with DSD, JERED Abx per ID - started empirically on Zosyn based on earlier wound culture Pain managemetnt - Tylenol 650mg PO Podiatry will continue to follow while in house <EvarashardVirginiaShameka K - Last Filed: 04/29/17 15:37> Objective - Vital Signs/Intake and Output Vital Signs (last 24 hours): Temp Pulse Resp BP Pulse Ox 98.4 F 73 18 106/72 99 04/29/17 07:30 04/29/17 07:30 04/29/17 07:30 04/29/17 07:30 04/29/17 07:30 Intake and Output: 04/29/17 04/29/17 06:59 18:59 Intake Total 840 1380 Balance 840 1380 - Medications Medications: Current Medications Acetaminophen (Tylenol 325mg Tab) 650 mg PO Q6H PRN PRN Reason: Pain, Mild (1-3) Aspirin (Ecotrin) 81 mg PO DAILY [facility] Last Admin: 04/29/17 09:45 Dose: 81 mg Carvedilol (Coreg) 6.25 mg PO BID [facility] Last Admin: 04/29/17 09:45 Dose: 6.25 mg Gabapentin (Neurontin) 300 mg PO TID [facility] PRN Reason: Protocol Last Admin: 04/29/17 14:29 Dose: 300 mg Piperacillin Sod/Tazobactam Sod (Zosyn 3.375 In Ns 100ml) 100 mls @ 200 mls/hr IVPB Q6 [facility] PRN Reason: Protocol Stop: 05/06/17 19:25 Last Admin: 04/29/17 12:14 Dose: 200 mls/hr Losartan Potassium (Cozaar) 100 mg PO DAILY [facility] Last Admin: 04/29/17 09:45 Dose: 100 mg Metoclopramide HCl (Reglan) 10 mg IV ONCE PRN PRN Reason: Nausea/Vomiting Ondansetron HCl (Zofran Inj) 4 mg IVP ONCE PRN PRN Reason: Nausea/Vomiting Oxychlorosene Sodium (Clorpactin Wcs-90) 2 gm TOP DAILY [facility] Last Admin: 04/29/17 09:44 Dose: Not Given Oxycodone/Acetaminophen (Percocet 10/325 Mg Tab) 1 tab PO Q4H PRN PRN Reason: Pain, moderate (4-7) Last Admin: 04/27/17 23:03 Dose: 1 tab Prasugrel (Effient) 10 mg PO DAILY [facility] Last Admin: 04/29/17 09:45 Dose: 10 mg - Labs Labs: PT 12.6 SECONDS (9.4-12.5) H 04/25/17 13:40 INR 1.10 (0.93-1.08) H 04/25/17 13:40 Attending/Attestation - Attestation I have personally seen and examined this patient.: Yes I have fully participated in the care of the patient.: Yes I have reviewed all pertinent clinical information, including history, physical exam and plan: Yes
--- NOTE | 2017-04-28 11:59 | PN ---
DATE: 04/28/2017 SUBJECTIVE: The patient is in bed, in no acute distress, comfortable, seen earlier this morning. PHYSICAL EXAMINATION: VITAL SIGNS: Temperature of 99, blood pressure is 120/70, respiratory rate 16. HEENT: Unremarkable. NECK: Supple. LUNGS: Have decreased breath sounds. HEART: Normal S1 and S2. ABDOMEN: Soft, nontender. EXTREMITIES: Examination of foot is noted. LABORATORY DATA: Reveals Achromobacter and Enterococcus from earlier culture. Enterococcus is sensitive to ampicillin and Achromobacter is sensitive to piperacillin. ASSESSMENT AND PLAN: A 56-year-old male with a history of coronary artery disease, hypertension, myocardial infarction, hyperlipidemia, right foot chronic ulcer status post bone biopsy and bone culture. Started empirically on Zosyn based on earlier wound culture; however, awaiting for a bone culture and bone biopsy Achromobacter and Enterococcus sensitive to the Zosyn and we will continue with Zosyn therapy. Travon Kohli MD
[2017-04-28] MEDS: Oxychlorosene Topical 2 gm Packet TOP SCH (12:00)
--- NOTE | 2017-04-28 22:16 | PN ---
DATE: SUBJECTIVE: The patient is 56 years old, seen and examined. The patient was admitted on 04/26/2017 when he went to see Dr. Morrell for his wound care. While changing the dressing, she felt his bone, so he was referred to emergency room to rule out osteomyelitis. The patient has significant past medical history of morbid obesity, right foot cellulitis and nonhealing ulcer, hypertension, severe peripheral vascular disease and neuropathy. On examination today, he is awake and alert, sitting in bed, seems to be comfortable. Offers no complaint. No nausea or vomiting. No diarrhea. PHYSICAL EXAMINATION: VITAL SIGNS: He is afebrile, pulse 63, respirations 20, blood pressure 94/55. LUNGS: Bilateral fair airflow. No rhonchi or crackle. HEART: S1 and S2 audible. ABDOMEN: Soft, obese, nontender. No rebound. No guarding. NEUROLOGIC: He is awake and alert, able to communicate. EXTREMITIES: Bilateral leg, he has chronic stasis dermatitis. His right foot is wrapped in the dressing, done by flat finisher. He has crusted lesions and scaly skin. LABORATORY EXAM: WBC is 9.2, hemoglobin 13, hematocrit 41, platelet 274. Chemistry: Sodium 141, potassium 4.3, chloride 101, CO2 of 27, BUN 25, creatinine 1.4, blood sugar of 102. ASSESSMENT: 1. Morbid obesity. 2. Peripheral vascular disease. 3. Right foot nonhealing ulcer, osteomyelitis. 4. Chronic stasis dermatitis. 5. Coronary artery disease, status post angioplasty. 6. Severe peripheral vascular disease. PLAN: Currently, the patient is on carvedilol 6.25 twice a day. He is on losartan and aspirin. He is getting Effient and he is on Neurontin. He is getting piperacillin. His wound care is being done by Podiatry team. Continue this medication and physical therapy evaluation has been requested by Podiatry. Tyrel Kowalski MD
[2017-04-29] MEDS: Piperacillin/Tazobact 3.375 gm 100 ML IVPB SCH ×3 (05:42→19:02)
[2017-04-29] MEDS: Oxychlorosene Topical 2 gm Packet TOP SCH (09:44)
--- NOTE | 2017-04-29 11:12 | CP.PCM.PN ---
Subjective - Date & Time of Evaluation Date of Evaluation: 04/29/17 Time of Evaluation: 11:12 - Subjective Subjective: Podiatry Consult Note - Dr. Morrell 56 year old male patient PMHx HTN, lymphedema, [place] s/p 3 stents seen and evaluated at bedside POD2 right foot bone culture and biopsy. Patient hemodynamically stable and NAD. No acute events overnight. Endorses minimal pain to plantar ulceration. Patient wearing forefoot offloading shoe at time of visit, states he is able to ambulate without any issues. No other pedal complaints. Denies N/V/F/D/C/SOB/calf pain. Objective - Vital Signs/Intake and Output Vital Signs (last 24 hours): Temp Pulse Resp BP Pulse Ox 98.4 F 73 18 106/72 99 04/29/17 07:30 04/29/17 07:30 04/29/17 07:30 04/29/17 07:30 04/29/17 07:30 Intake and Output: 04/29/17 04/29/17 06:59 18:59 Intake Total 840 Balance 840 - Medications Medications: Current Medications Acetaminophen (Tylenol 325mg Tab) 650 mg PO Q6H PRN PRN Reason: Pain, Mild (1-3) Aspirin (Ecotrin) 81 mg PO DAILY [facility] Last Admin: 04/29/17 09:45 Dose: 81 mg Carvedilol (Coreg) 6.25 mg PO BID [facility] Last Admin: 04/29/17 09:45 Dose: 6.25 mg Gabapentin (Neurontin) 300 mg PO TID [facility] PRN Reason: Protocol Last Admin: 04/29/17 09:45 Dose: 300 mg Piperacillin Sod/Tazobactam Sod (Zosyn 3.375 In Ns 100ml) 100 mls @ 200 mls/hr IVPB Q6 [facility] PRN Reason: Protocol Stop: 05/06/17 19:25 Last Admin: 04/29/17 05:42 Dose: 200 mls/hr Losartan Potassium (Cozaar) 100 mg PO DAILY [facility] Last Admin: 04/29/17 09:45 Dose: 100 mg Metoclopramide HCl (Reglan) 10 mg IV ONCE PRN PRN Reason: Nausea/Vomiting Ondansetron HCl (Zofran Inj) 4 mg IVP ONCE PRN PRN Reason: Nausea/Vomiting Oxychlorosene Sodium (Clorpactin Wcs-90) 2 gm TOP DAILY [facility] Last Admin: 04/29/17 09:44 Dose: Not Given Oxycodone/Acetaminophen (Percocet 10/325 Mg Tab) 1 tab PO Q4H PRN PRN Reason: Pain, moderate (4-7) Last Admin: 04/27/17 23:03 Dose: 1 tab Prasugrel (Effient) 10 mg PO DAILY [facility] Last Admin: 04/29/17 09:45 Dose: 10 mg - Labs Labs: PT 12.6 SECONDS (9.4-12.5) H 04/25/17 13:40 INR 1.10 (0.93-1.08) H 04/25/17 13:40 - Constitutional Appears: Well, Non-toxic, No Acute Distress - Extremities Exam Additional comments: RLE focused physical exam VASC: DP/PT pulses palpable. Temperature gradient warm to warm. CFT <3 seconds to all digits. +1 pitting edema to lower extremity. No increase in warmth noted to plantar ulceration. NEURO: Gross sensation diminished. DERM: Ulceration noted sub 2nd metatarsal head measuring approximately 2.5 x 2.0cm, (+)PTB. Ulcer is noted to have a beefy, granular base. No drainage or purulence was able to be expressed from this visit. Tracking noted at 7 o' clock. Absent malodor or periwound erythema. ORTHO: No pain on palpation noted. - Neurological Exam Neurological Exam: Alert, Awake, Oriented x3 - Psychiatric Exam Psychiatric exam: Normal Affect, Normal Mood Assessment and Plan - Assessment and Plan (Free Text) Assessment: 56 year old male PMHx HTN, lymphedema, [place] s/p 3 stents with right foot chronic plantar ulceration, POD#2 right foot bone culture and biopsy (DOS 04/27/17) Plan: Patient seen and evaluated Discussed with attending, Dr. Morrell Afebrile, ESR 27 Right foot XR reviewed: Unremarkable, no significant changes from prior study Intra-op specimens removed: 1) Right foot abscess: WCx (prelim) gram positive cocci 2) Right 2nd metatarsal: (prelim) gram positive cocci 3) Right foot 2nd metatarsal bone culture: pathology pending Wound cleansed with Clorpactin solution, repacked with 1/4" iodoform packing strip, and dressed with DSD, JERED Continue abx per ID - Zosyn Pain management - Tylenol 650mg PO, Percocet 1 tab PO Podiatry will continue to follow while in house
--- NOTE | 2017-04-29 13:15 | PN ---
DATE: 04/29/2017 SUBJECTIVE: The patient is seen earlier this morning, in no acute distress, nontoxic. PHYSICAL EXAMINATION: VITAL SIGNS: Temperature is 98, blood pressure is 106/70, respiratory rate of 20, heart rate of 82. HEENT: Unremarkable. NECK: Supple. LUNGS: Have decreased breath sounds. HEART: Normal S1, S2. ABDOMEN: Soft, nontender. LABORATORY DATA: Reveals the patient's bone culture is Enterococcus faecalis, sensitive to ampicillin and right foot culture is pending. Pathology is pending. The patient is currently on Zosyn. The blood cultures are negative. ASSESSMENT AND PLAN: This is a 56-year-old male with history of coronary artery disease, hypertension, myocardial infarction, hyperlipidemia, right foot chronic ulcer status post biopsy with a bone culture growing Enterococcus faecalis, sensitive to ampicillin, waiting for final culture and bone pathology. Currently, on Zosyn. We will need 4 to 6 weeks of antibiotics. We would preferably continue the Zosyn and recommend CBC, SMA-18, sed rate, and C-reactive protein once weekly. Local wound care. Case discussed with the patient at length this morning. Travon Kohli MD
--- NOTE | 2017-04-29 21:50 | PN ---
DATE: SUBJECTIVE: Patient is 56-year-old, seen and examined, sitting in chair, seems to be comfortable. No nausea, vomiting. No diarrhea. No fever, no chills. Eating and tolerating. Just had dressing done by the Podiatry team on his right foot. OBJECTIVE: VITAL SIGNS: He is afebrile, pulse 73, respirations 18, blood pressure 106/72. LUNGS: Bilateral fair airflow. No rhonchi or crackles. HEART: S1, S2 audible. ABDOMEN: Soft, obese, nontender. No rebound, no guarding. NEUROLOGICAL: He is awake and alert, able to communicate. EXTREMITIES: His right foot is in the dressing. SKIN: He has chronic venous stasis dermatitis with scaling of his both legs skin. LABORATORY DATA: Chemistry: His C-reactive protein is more than 15. ASSESSMENT: 1. Morbid obesity. 2. Bilateral leg elephantitis and chronic stasis dermatitis. 3. Right foot cellulitis. 4. Peripheral vascular disease. 5. Coronary artery disease, status post angioplasty. PLAN: So plan is, currently patient is getting local wound treatment by podiatry team. He is on IV antibiotics, that is, Zosyn as per ID and we will follow up his blood work intermittently. Tyrel Kowalski MD
[2017-04-30] MEDS: Piperacillin/Tazobact 3.375 gm 100 ML IVPB SCH ×4 (00:15→18:15)
[2017-04-30 01:58] VITALS: RESP 20
--- NOTE | 2017-04-30 13:14 | PN ---
DATE: SUBJECTIVE: The patient has no complaints of any chest pain. No shortness of breath. No headache. No dizziness. PHYSICAL EXAMINATION VITAL SIGNS: Temperature is 97.8, pulse is 65, blood pressure 98/55, respirations 20. GENERAL: The patient is lying in bed, flat, comfortable. HEENT: No oral lesion. Anicteric sclerae. Moist mucosa. NECK: No JVD, adenopathy, or thyromegaly. CARDIOVASCULAR: S1 and S2, regular. No murmurs, rubs, or gallops. LUNGS: Clear to auscultation bilaterally. No wheeze, rales, or rhonchi. ABDOMEN: Bowel sounds are positive. Soft, nontender and nondistended. EXTREMITIES: No cyanosis, clubbing or edema. LABORATORY DATA: White count is 9.2, hemoglobin is 13.4. Creatinine is 1.4. ASSESSMENT 1. Right foot ulcer. 2. Status post right second metatarsal bone culture, pending results. 3. Right foot abscess. 4. Hypertension. 5. Lymphedema. 6. Coronary artery disease with stent. 7. Peripheral arterial disease. 8. Obesity with body mass index of 44. PLAN: The patient is currently on carvedilol. He is going to continue with losartan for his hypertension. He is on aspirin. For his diabetes, he is on . The patient is on Tylenol; also, he is receiving Zosyn for antibiotics. He has heart-healthy diet that he is on. The patient is waiting for biopsy results. He is currently comfortable. No complaints of any pain. Hank Barroso MD
--- NOTE | 2017-04-30 15:45 | CP.PCM.PN ---
Subjective - Date & Time of Evaluation Date of Evaluation: 04/30/17 Time of Evaluation: 12:05 - Subjective Subjective: No fevers, not in distress. Objective - Vital Signs/Intake and Output Vital Signs (last 24 hours): Temp Pulse Resp BP Pulse Ox 97.8 F 65 20 98/55 L 95 04/30/17 07:30 04/30/17 07:30 04/30/17 07:30 04/30/17 07:30 04/30/17 07:30 Intake and Output: 04/30/17 04/30/17 06:59 18:59 Intake Total 720 Balance 720 - Medications Medications: Current Medications Acetaminophen (Tylenol 325mg Tab) 650 mg PO Q6H PRN PRN Reason: Pain, Mild (1-3) Aspirin (Ecotrin) 81 mg PO DAILY [facility] Last Admin: 04/30/17 10:19 Dose: 81 mg Carvedilol (Coreg) 6.25 mg PO BID [facility] Last Admin: 04/30/17 10:19 Dose: 6.25 mg Gabapentin (Neurontin) 300 mg PO TID [facility] PRN Reason: Protocol Last Admin: 04/30/17 14:20 Dose: 300 mg Piperacillin Sod/Tazobactam Sod (Zosyn 3.375 In Ns 100ml) 100 mls @ 200 mls/hr IVPB Q6 [facility] PRN Reason: Protocol Stop: 05/06/17 19:25 Last Admin: 04/30/17 14:19 Dose: 200 mls/hr Losartan Potassium (Cozaar) 100 mg PO DAILY [facility] Last Admin: 04/30/17 10:19 Dose: 100 mg Metoclopramide HCl (Reglan) 10 mg IV ONCE PRN PRN Reason: Nausea/Vomiting Ondansetron HCl (Zofran Inj) 4 mg IVP ONCE PRN PRN Reason: Nausea/Vomiting Oxychlorosene Sodium (Clorpactin Wcs-90) 2 gm TOP DAILY [facility] Last Admin: 04/29/17 09:44 Dose: Not Given Oxycodone/Acetaminophen (Percocet 10/325 Mg Tab) 1 tab PO Q4H PRN PRN Reason: Pain, moderate (4-7) Last Admin: 04/27/17 23:03 Dose: 1 tab Prasugrel (Effient) 10 mg PO DAILY [facility] Last Admin: 04/30/17 10:19 Dose: 10 mg - Labs Labs: PT 12.6 SECONDS (9.4-12.5) H 04/25/17 13:40 INR 1.10 (0.93-1.08) H 04/25/17 13:40 - Constitutional Appears: Chronically Ill - Head Exam Head Exam: NORMAL INSPECTION - ENT Exam ENT Exam: Mucous Membranes Moist - Neck Exam Neck Exam: absent: Meningismus - Respiratory Exam Respiratory Exam: Decreased Breath Sounds - Cardiovascular Exam Cardiovascular Exam: +S1, +S2 - GI/Abdominal Exam GI & Abdominal Exam: Soft. absent: Tenderness - Extremities Exam Additional comments: right foot with dressings in place Assessment and Plan - Assessment and Plan (Free Text) Plan: Assessment Probable right foot osteomyelitis S/P bone biopsy, growing E. faecalis and Coagulase negative staph CAD HTN dyslipidemia Plan continue Zosyn and will need 4-6 weeks of antibiotics with weekly ESR, CRP, CBC , CMP while on antibiotics with outpatient follow up with Podiatry
--- NOTE | 2017-04-30 16:32 | CP.PCM.PN ---
Subjective - Date & Time of Evaluation Date of Evaluation: 04/30/17 Time of Evaluation: 16:28 - Subjective Subjective: Podiatry Consult Note - Dr. Morrell 56 year old male patient PMHx HTN, lymphedema, [place] s/p 3 stents seen and evaluated at bedside POD3 right foot bone culture and biopsy. Patient hemodynamically stable and NAD. No acute events overnight. No pain to plantar ulceration. Patient wearing forefoot offloading shoe at time of visit with dressing clean/dry/intact. No pedal complaints this visit. Denies N/V/F/D/C/SOB /calf pain. Objective - Vital Signs/Intake and Output Vital Signs (last 24 hours): Temp Pulse Resp BP Pulse Ox 97.8 F 65 20 98/55 L 95 04/30/17 07:30 04/30/17 07:30 04/30/17 07:30 04/30/17 07:30 04/30/17 07:30 Intake and Output: 04/30/17 04/30/17 06:59 18:59 Intake Total 720 Balance 720 - Medications Medications: Current Medications Acetaminophen (Tylenol 325mg Tab) 650 mg PO Q6H PRN PRN Reason: Pain, Mild (1-3) Aspirin (Ecotrin) 81 mg PO DAILY [facility] Last Admin: 04/30/17 10:19 Dose: 81 mg Carvedilol (Coreg) 6.25 mg PO BID [facility] Last Admin: 04/30/17 10:19 Dose: 6.25 mg Gabapentin (Neurontin) 300 mg PO TID [facility] PRN Reason: Protocol Last Admin: 04/30/17 14:20 Dose: 300 mg Piperacillin Sod/Tazobactam Sod (Zosyn 3.375 In Ns 100ml) 100 mls @ 200 mls/hr IVPB Q6 [facility] PRN Reason: Protocol Stop: 05/06/17 19:25 Last Admin: 04/30/17 14:19 Dose: 200 mls/hr Losartan Potassium (Cozaar) 100 mg PO DAILY [facility] Last Admin: 04/30/17 10:19 Dose: 100 mg Metoclopramide HCl (Reglan) 10 mg IV ONCE PRN PRN Reason: Nausea/Vomiting Ondansetron HCl (Zofran Inj) 4 mg IVP ONCE PRN PRN Reason: Nausea/Vomiting Oxychlorosene Sodium (Clorpactin Wcs-90) 2 gm TOP DAILY [facility] Last Admin: 04/29/17 09:44 Dose: Not Given Oxycodone/Acetaminophen (Percocet 10/325 Mg Tab) 1 tab PO Q4H PRN PRN Reason: Pain, moderate (4-7) Last Admin: 04/27/17 23:03 Dose: 1 tab Prasugrel (Effient) 10 mg PO DAILY [facility] Last Admin: 04/30/17 10:19 Dose: 10 mg - Labs Labs: PT 12.6 SECONDS (9.4-12.5) H 04/25/17 13:40 INR 1.10 (0.93-1.08) H 04/25/17 13:40 - Constitutional Appears: Well, Non-toxic, No Acute Distress - Extremities Exam Additional comments: RLE focused physical exam VASC: DP/PT pulses palpable. Temperature gradient warm to warm. CFT <3 seconds to all digits. +1 pitting edema to lower extremity. No increase in warmth noted to plantar ulceration. NEURO: Gross sensation diminished. DERM: Ulceration noted sub 2nd metatarsal head measuring approximately 2.5 x 2.0cm, (+)PTB. Ulcer is noted to have a beefy, granular base. Minimal serosanguinous drainage noted. Tracking noted at 7 o'clock, decreased in depth. Absent malodor or periwound erythema. ORTHO: No pain on palpation noted. - Neurological Exam Neurological Exam: Alert, Awake, Oriented x3 - Psychiatric Exam Psychiatric exam: Normal Affect, Normal Mood Assessment and Plan - Assessment and Plan (Free Text) Assessment: 56 year old male PMHx HTN, lymphedema, [place] s/p 3 stents with right foot chronic plantar ulceration, POD#3 right foot bone culture and biopsy (DOS 04/27/17) Plan: Patient seen and evaluated with attending, Dr. Morrell Afebrile, ESR 27 Right foot XR reviewed: Unremarkable, no significant changes from prior study Intra-op specimens removed: 1) Right foot abscess: WCx staphylococcus sp coag neg 2) Right 2nd metatarsal: enterococcus faecalis, staphylococcus sp coag neg 3) Right foot 2nd metatarsal bone culture: pathology pending Wound repacked with 1/4" iodoform packing strip, and dressed with DSD, JERED -Iodosorb ordered for dressing changes Continue abx per ID - Zosyn Pain management - Tylenol 650mg PO, Percocet 1 tab PO Podiatry will continue to follow while in house
[2017-04-30] MEDS: Oxychlorosene Topical 2 gm Packet TOP SCH (18:18)
[2017-05-01] MEDS: Piperacillin/Tazobact 3.375 gm 100 ML IVPB SCH ×3 (00:10→12:49)
[2017-05-01] MEDS: CADEXOMER IODINE 0.9% GEL 10G TOP SCH ×2 (06:06→10:19)
[2017-05-01 08:05] VITALS: TEMP 97.6; O2SAT 95
[2017-05-01] MEDS: Oxychlorosene Topical 2 gm Packet TOP SCH (10:06)
--- NOTE | 2017-05-01 10:06 | PN ---
DATE: 05/01/2017 SUBJECTIVE: The patient has no complaints of any chest pain. No shortness of breath. No headache. No dizziness. PHYSICAL EXAMINATION VITAL SIGNS: Temperature is 97.7, pulse of 63, blood pressure 117/69, respirations 20. GENERAL: The patient is lying in bed, flat, comfortable. HEENT: No oral lesion. Anicteric sclerae. Moist mucosa. NECK: No JVD, adenopathy, or thyromegaly. CARDIOVASCULAR: S1 and S2, regular. No murmurs, rubs, or gallops. LUNGS: Clear to auscultation bilaterally. No wheeze, rales, or rhonchi. ABDOMEN: Bowel sounds are positive. Soft, nontender and nondistended. EXTREMITIES: No cyanosis, clubbing or edema. In the right foot, there is dressing in place. LABORATORY DATA: No new labs. ASSESSMENT 1. Right foot ulcer. 2. Status post right second metatarsal bone culture. 3. Right foot abscess. 4. Hypertension. 5. Lymphedema. 6. Coronary artery disease with stent. 7. Peripheral arterial disease. 8. Obesity with body mass index of 44. PLAN: The patient is being followed by Podiatry. I did review their notes. The patient is getting wound care and dressings. The patient's pain is being controlled with Tylenol and Percocet. I also reviewed the patient's note from Dr. Vandana RASMUSSEN. The patient had a bone biopsy, which is growing E. faecalis and coag-negative Staph. The patient will continue on Zosyn, will need about 4 to 6 weeks of antibiotics. The patient will most likely need PICC line. The patient is going to continue with Neurontin for neuropathy. The patient is on losartan for hypertension. Hank Barroso MD
--- NOTE | 2017-05-01 11:29 | CP.PCM.PN ---
Subjective - Date & Time of Evaluation Date of Evaluation: 05/01/17 Time of Evaluation: 11:23 - Subjective Subjective: Podiatry Progress Note - Dr. Morrell 56 year old male patient PMHx HTN, lymphedema, [place] s/p 3 stents seen and evaluated at bedside POD4 right foot bone culture and biopsy. Patient hemodynamically stable and NAD. No acute events overnight. Denies any changes to RLE. No pedal complaints. Forefoot wedge shoe present to right foot, able to ambulate without any issues. Denies N/V/F/D/C/SOB/calf pain. Objective - Vital Signs/Intake and Output Vital Signs (last 24 hours): Temp Pulse Resp BP Pulse Ox 97.6 F 64 20 92/61 L 95 05/01/17 07:30 05/01/17 10:15 05/01/17 07:30 05/01/17 10:15 05/01/17 07:30 Intake and Output: 05/01/17 05/01/17 06:59 18:59 Intake Total 360 Balance 360 - Medications Medications: Current Medications Acetaminophen (Tylenol 325mg Tab) 650 mg PO Q6H PRN PRN Reason: Pain, Mild (1-3) Aspirin (Ecotrin) 81 mg PO DAILY [facility] Last Admin: 05/01/17 10:18 Dose: 81 mg Cadexomer Iodine (Iodosorb) 0 gm TOP DAILY [facility] Last Admin: 05/01/17 10:19 Dose: Not Given Carvedilol (Coreg) 6.25 mg PO BID [facility] Last Admin: 05/01/17 10:15 Dose: Not Given Gabapentin (Neurontin) 300 mg PO TID [facility] PRN Reason: Protocol Last Admin: 05/01/17 10:19 Dose: 300 mg Piperacillin Sod/Tazobactam Sod (Zosyn 3.375 In Ns 100ml) 100 mls @ 200 mls/hr IVPB Q6 [facility] PRN Reason: Protocol Stop: 05/06/17 19:25 Last Admin: 05/01/17 05:37 Dose: 200 mls/hr Losartan Potassium (Cozaar) 100 mg PO DAILY [facility] Last Admin: 05/01/17 10:15 Dose: Not Given Ondansetron HCl (Zofran Inj) 4 mg IVP ONCE PRN PRN Reason: Nausea/Vomiting Oxychlorosene Sodium (Clorpactin Wcs-90) 2 gm TOP DAILY [facility] Last Admin: 05/01/17 10:06 Dose: Not Given Oxycodone/Acetaminophen (Percocet 10/325 Mg Tab) 1 tab PO Q4H PRN PRN Reason: Pain, moderate (4-7) Last Admin: 04/27/17 23:03 Dose: 1 tab Prasugrel (Effient) 10 mg PO DAILY [facility] Last Admin: 05/01/17 10:19 Dose: 10 mg - Labs Labs: PT 12.6 SECONDS (9.4-12.5) H 04/25/17 13:40 INR 1.10 (0.93-1.08) H 04/25/17 13:40 - Constitutional Appears: Well, Non-toxic, No Acute Distress - Extremities Exam Additional comments: RLE focused physical exam VASC: DP/PT pulses palpable. Temperature gradient warm to warm. CFT <3 seconds to all digits. +1 pitting edema to lower extremity. No increase in warmth noted to plantar ulceration. NEURO: Gross sensation diminished. DERM: Ulceration noted sub 2nd metatarsal head measuring approximately 2.5 x 2.0cm, (+)PTB. Ulcer is noted to have a beefy, granular base. Minimal serosanguinous drainage noted. Tracking noted at 7 o'clock, continues to decrease. Absent malodor or periwound erythema. ORTHO: No pain on palpation noted. - Neurological Exam Neurological Exam: Alert, Awake, Oriented x3 - Psychiatric Exam Psychiatric exam: Normal Affect, Normal Mood Assessment and Plan - Assessment and Plan (Free Text) Assessment: 56 year old male PMHx HTN, lymphedema, [place] s/p 3 stents with right foot chronic plantar ulceration, POD#4 right foot bone culture and biopsy (DOS 04/27/17) Plan: Patient seen and evaluated with attending, Dr. Morrell Afebrile, ESR 27 Right foot XR reviewed: Unremarkable, no significant changes from prior study Intra-op specimens removed: 1) Right foot abscess: WCx staphylococcus sp coag neg 2) Right 2nd metatarsal: enterococcus faecalis, staphylococcus sp coag neg 3) Right foot 2nd metatarsal bone culture: pathology pending Iodosorb applied to right foot wound and dressed with DSD Continue abx per ID - continue Zosyn, will need 4-6 weeks -Per medicine patient will likely need PICC Pain management - Tylenol 650mg PO, Percocet 1 tab PO Podiatry will continue to follow while in house
[2017-05-01] MEDS ORDERED: HEPARIN SODIUM/NS 1,000 ML IV ONE (15:37)
[2017-05-01] MEDS ORDERED: Lidocaine 2% Inj (20ml) ONE (15:37)
[2017-05-01 18:00] VITALS: BP 121/62; PULSE 66
--- NOTE | 2017-05-01 18:40 | CP.PCM.PN ---
Subjective - Date & Time of Evaluation Date of Evaluation: 05/01/17 Time of Evaluation: 12:05 - Subjective Subjective: Comfortable, afebrile, not in distress. Objective - Vital Signs/Intake and Output Vital Signs (last 24 hours): Temp Pulse Resp BP Pulse Ox 97.7 F 63 20 117/69 99 04/30/17 16:00 04/30/17 16:00 04/30/17 16:00 04/30/17 16:00 04/30/17 16:00 Intake and Output: 04/30/17 05/01/17 18:59 06:59 Intake Total 720 360 Balance 720 360 - Medications Medications: Current Medications Acetaminophen (Tylenol 325mg Tab) 650 mg PO Q6H PRN PRN Reason: Pain, Mild (1-3) Aspirin (Ecotrin) 81 mg PO DAILY [facility] Last Admin: 04/30/17 10:19 Dose: 81 mg Cadexomer Iodine (Iodosorb) 0 gm TOP DAILY [facility] Last Admin: 05/01/17 06:06 Dose: Not Given Carvedilol (Coreg) 6.25 mg PO BID [facility] Last Admin: 04/30/17 18:17 Dose: 6.25 mg Gabapentin (Neurontin) 300 mg PO TID [facility] PRN Reason: Protocol Last Admin: 04/30/17 18:17 Dose: 300 mg Piperacillin Sod/Tazobactam Sod (Zosyn 3.375 In Ns 100ml) 100 mls @ 200 mls/hr IVPB Q6 [facility] PRN Reason: Protocol Stop: 05/06/17 19:25 Last Admin: 05/01/17 05:37 Dose: 200 mls/hr Losartan Potassium (Cozaar) 100 mg PO DAILY [facility] Last Admin: 04/30/17 10:19 Dose: 100 mg Metoclopramide HCl (Reglan) 10 mg IV ONCE PRN PRN Reason: Nausea/Vomiting Ondansetron HCl (Zofran Inj) 4 mg IVP ONCE PRN PRN Reason: Nausea/Vomiting Oxychlorosene Sodium (Clorpactin Wcs-90) 2 gm TOP DAILY [facility] Last Admin: 04/30/17 18:18 Dose: Not Given Oxycodone/Acetaminophen (Percocet 10/325 Mg Tab) 1 tab PO Q4H PRN PRN Reason: Pain, moderate (4-7) Last Admin: 04/27/17 23:03 Dose: 1 tab Prasugrel (Effient) 10 mg PO DAILY [facility] Last Admin: 04/30/17 10:19 Dose: 10 mg - Labs Labs: PT 12.6 SECONDS (9.4-12.5) H 04/25/17 13:40 INR 1.10 (0.93-1.08) H 04/25/17 13:40 - Constitutional Appears: Chronically Ill - Head Exam Head Exam: NORMAL INSPECTION - Neck Exam Neck Exam: absent: Meningismus - Respiratory Exam Respiratory Exam: Decreased Breath Sounds - Cardiovascular Exam Cardiovascular Exam: +S1, +S2 - GI/Abdominal Exam GI & Abdominal Exam: Soft. 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 faecalis and Coagulase negative staph CAD HTN dyslipidemia Plan continue Zosyn and will need 4-6 weeks of antibiotics with weekly ESR, CRP, CBC , CMP while on antibiotics with outpatient follow up with Podiatry
--- NOTE | 2017-05-01 19:43 | VASCULAR ---
PROCEDURE: Ultrasound and fluoroscopically placed left upper extremity PICC line. HISTORY: Right foot osteomyelitis. Long-term IV antibiotics. Needs PICC line. PHYSICIAN(S): J Luis Salazar MD. TECHNIQUE: The relative risks and indications of the procedure were explained to the patient and consent obtained. The patient was placed supine on the arteriogram table and the left arm prepped and draped in the usual sterile fashion. A tourniquet was applied to the left axilla. 1% Xylocaine was used to anesthetize the skin and soft tissues at the puncture site above the elbow. The left basilic vein was punctured under direct ultrasound guidance with a micropuncture set. A 0.018 guidewire was advanced centrally and used to measure the length to the SVC/RA junction. A 5 [place] single-lumen PICC line 54 cm long was advanced to the SVC/RA junction. The catheter was flushed and secured. The patient tolerated the procedure well. IMPRESSION: 1. Ultrasound and fluoroscopically placed left upper extremity PICC line. A 5 [place] single-lumen PICC line 54 cm long was advanced to the SVC/RA junction.
== END 2017-05-01 20:08 | disposition home or self-care (01) | DRG 580 ==
LOC: ED 13:02 → ERH 16:07 → 5RNO 04-26 01:07
PROVIDERS: ADMIT Internal Medicine Nephrology; ATTEND Internal Medicine Nephrology
PROC: 0HBMXZZ Excision of Right Foot Skin, External Approach (ICD-10-PCS; 2017-04-27)
PROC: 0QBN3ZX Excision of Right Metatarsal, Percutaneous Approach, Diagnostic (ICD-10-PCS; principal; 2017-04-27 07:30)
PROC: 02HV33Z Insertion of Infusion Device into Superior Vena Cava, Percutaneous Approach (ICD-10-PCS; 2017-05-01)
DX: L97.519 Non-pressure chronic ulcer of other part of right foot with unspecified severity (principal); Z68.41 Body mass index [BMI] 40.0-44.9, adult; E66.01 Morbid (severe) obesity due to excess calories; L02.611 Cutaneous abscess of right foot; L03.115 Cellulitis of right lower limb; I73.9 Peripheral vascular disease, unspecified; I87.2 Venous insufficiency (chronic) (peripheral); I10 Essential (primary) hypertension; I25.10 Atherosclerotic heart disease of native coronary artery without angina pectoris; E78.5 Hyperlipidemia, unspecified; G62.1 Alcoholic polyneuropathy; I25.2 Old myocardial infarction; Z95.5 Presence of coronary angioplasty implant and graft; Z87.891 Personal history of nicotine dependence